=== PATIENT | male | born 1965 | race Caucasian/White ===

== ENCOUNTER 2023-10-28 15:29 | Emergency (ER) | payer OTHER, SELFPAY ==
[2023-10-28 15:42] VITALS: BP 149/85; PULSE 54; RESP 16; TEMP 36.2; O2SAT 96; BMI 35.2
--- OUTSIDE RECORDS SUMMARY | 2023-10-28 19:15 | XMS_ITS | Continuity of Care Document ---
Author Name Unknown Organization [facility] Address [address] [place] [address]- Care Team Providers Care Operational Risk Analyst Name Role Phone Opal NUNEZ, Emily Powell Primary Care Physician [place] [facility] [place] 09/06/20 [facility] [address] [place] [address]- [facility] Attending Physician: César Sylvester MD Referring Physician: Opal NUNEZ, Emily Powell Allergies, Adverse Reactions, Alerts Substance Reaction Severity Status Latex Active metFORMIN lightheadedness GI symptoms Active Immunizations Given and Recorded Vaccine Date Status Refusal Reason influenza virus vaccine, inactivated 1 08/09/18 Re corded influenza virus vaccine, inactivated 2 07/30/17 Gi rojelio influenza virus vaccine, inactivated 3 10/31/16 Gi rojelio influenza virus vaccine, inactivated 09/17/13 Give n influenza virus vaccine, inactivated 4 07/31/12 Gi rojelio pneumococcal 23-valent vaccine 5 06/05/12 Given tetanus/diphtheria/pertussis, acel(Tdap) 6 04/04/12 Given 1Location History: [facility] 2Admin Note: [facility] [id number] 3Admin Note: Administered at [facility] in [place] 4Admin Note: given at [facility] 5Admin Note: VIS 08/20 6Admin Note: VIS 11/23 Medications Allergy (Loratadine) 10 mg oral tablet 1 tablet = 10 mg, By Mouth, Daily, # 30 tablet, 2 Refills, Maintenance, 05/07/20 10:50:00 EDT, Tablet, [facility] #[id number], 162, cm, 05/07/20 8:55:00 EDT, Height Start Date: 05/07/20 Status: Ordered aspirin 81 mg oral delayed release tablet 81 mg, 1, tablet, By Mouth, Daily, # 90 tablet, Refills 5, Tot. Refills 5, Maintenance, 05/07/20 10:49:00 EDT, Route to Pharmacy Electronically, [facility] #[id number], 162, cm, 05/07/20 8:55:00EDT, Height Start Date: 05/07/20 Status: Ordered atorvastatin 40 mg oral tablet 1 tablet = 40 mg, By Mouth, Daily, # 90 tablet, 3 Refills, Maintenance, 07/26/20 17:31:00 EDT, Tablet, [facility] #[id number], 162, cm, 05/07/20 8:55:00 EDT, Height Start Date: 07/26/20 Status: Ordered bacitracin topical 500 u/gm ointment 1 application, Topically, 4 times a day, # 30 Gm, 0 Refills, Maintenance, 05/07/20 10:55:00 EDT, Ointment, [facility] #[id number], 1 application Topically 4 times a day,x7 days, 162, cm, 05/07/20 8:55:00 EDT, Height Start Date: 05/07/20 Stop Date: 05/14/20 Status: Ordered buPROPion 200 mg/12 hours (SR) oral tablet, extended release via psychiatry, 0 Refills, Maintenance, 08/11/20 13:38:00 EDT Start Date: 08/11/20 Status: Ordered diclofenac 1% topical gel 1 application, Topically, 4 times a day, # 100 Gm, 2 Refills, Maintenance, 08/24/20 13:23:00 EDT, Gel, [facility] #[id number], 162, cm, 08/24/20 12:57:00 EDT, Height, 101.4, kg, 08/07/20 16:24:00 EDT, Dry Weight Start Date: 08/24/20 Status: Ordered Flonase 50 mcg/inh nasal spray 1 sprays, Nares, Both, 2 times a day, PRN Congestion, # 16 Gm, 7 Refills, Maintenance, 05/07/20 10:48:00 EDT, [place], [facility] #[id number], 1 sprays Nares, Both 2 times a day,PRN:Congestion, 162, cm, 05/07/20 8:55:00 EDT, Height Start Date: 05/07/20 Status: Ordered FLUoxetine 20 mg oral capsule via psychiatry, Refills 0, Maintenance, 08/11/20 13:38:00 EDT Start Date: 08/11/20 Status: Ordered Freestyle Lite Lancets See Instructions, # 50 units, Refills 11, Tot. Refills 11, Maintenance, 1 x daily fasting sugar fortype 2 diabetes. e11.9, 12/19/18 17:14:12 EST, Compound Start Date: 12/19/18 Status: Ordered Freestyle Lite Test Strips See Instructions, # 100 each, Refills 11, Tot. Refills 11, Maintenance, Check daily fasting sugar for type 2 diabetes., 08/24/20 13:25:00 EDT, Compound, 162, cm, 08/24/20 12:57:00 EDT, Height, 101.4,kg, 08/07/20 16:24:00 EDT, Dry Weight Start Date: 08/24/20 Status: Ordered losartan 25 mg oral tablet 25 mg, 1, tablet, By Mouth, Daily, # 90 tablet, Refills 3, Tot. Refills 3, Maintenance, 02/02/20 16:29:00 EDT, Route to Pharmacy Electronically, [facility] #[id number], 162, cm, 12/22/19 14:37:00 EST, Height Start Date: 02/02/20 Stop Date: 01/27/21 Status: Ordered omeprazole 40 mg oral enteric coated capsule 1 capsule = 40 mg, By Mouth, Daily, before a meal, # 30 capsule, 0 Refills, Maintenance, 08/11/20 13:46:00 EDT, EC Capsule, [facility] #[id number], 162, cm, 05/07/20 8:55:00 EDT, Height, 101.4, kg, 08/07/20 16:24:00 EDT, Dry Weight Start Date: 08/11/20 Stop Date: 09/10/20 Status: Ordered Protonix 40 mg oral delayed release tablet 1 tablet = 40 mg, By Mouth, Daily, # 30 tablet, 0 Refills, Maintenance, 08/07/20 16:05:00 EDT, EC Tablet, 162, cm, 05/07/20 8:55:00 EDT, Height, 101.4, kg, 08/07/20 13:01:00 EDT, Dry Weight Start Date: 08/07/20 Status: Ordered traZODone 100 mg oral tablet via psychiatry, Refills 0, Maintenance, 08/11/20 13:38:00 EDT Start Date: 08/11/20 Status: Ordered zolpidem 10 mg oral tablet via psychiatry, 0 Refills, Maintenance, 08/11/20 13:38:00 EDT Start Date: 08/11/20 Status: Ordered Problem List Condition Effective Dates Status Health Status Inform ant Depression(Confirmed) 1 Active Diabetes Mellitus(Confirmed) 2009 Active Colon, diverticulosis(Confirmed) Active Sigmoid diverticulosis(Confirmed) Active Hemorrhoid(Confirmed) 2 Active 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 Dalton Box. and therapist. 2inertal and external on 2016 colonoscopy Social History Social History Type Response Smoking Status Former smoker; Other : quit per pt 03/08/18; entered on: 03/08/18 Sex Male
--- OUTSIDE RECORDS SUMMARY | 2023-10-28 19:15 | XMS_ITS | Continuity of Care Document ---
Author Name Unknown Organization [facility] Address [address] [place] [address]- Care Team Providers Care Informatica Mdm Architect Name Role Phone Rogelio NUNEZ, Arya Tompkins Primary Care Physician [phone] [place] [facility] [place]/23[place] - 12/23/[address] [address] Attending Physician: Collette Castillo Admitting Physician: AdmtrCollette Referring Physician: Admtr, Ar8 Allergies, Adverse Reactions, Alerts Substance Reaction Severity Status Latex Active metFORMIN lightheadedness GI symptoms Active Immunizations Given and Recorded Vaccine Date Status Refusal Reason tetanus/diphtheria/pertussis, acel(Tdap) 09/11/22 Given tetanus/diphtheria/pertussis, acel(Tdap) 1 04/04/12 Given [id number] 12y+ bivalent booster vax 08/24/22 Recorded influenza virus vaccine, inactivated 08/08/22 Randy rded influenza virus vaccine, inactivated 09/02/21 Randy rded influenza virus vaccine, inactivated 08/06/20 Randy rded influenza virus vaccine, inactivated 2 08/09/18 Re corded influenza virus vaccine, inactivated 3 07/30/17 Gi rojelio influenza virus vaccine, inactivated 4 10/31/16 Gi rojelio influenza virus vaccine, inactivated 08/31/15 Randy rded influenza virus vaccine, inactivated 09/02/14 Randy rded influenza virus vaccine, inactivated 09/17/13 Give n influenza virus vaccine, inactivated 5 07/31/12 Gi rojelio SARS-CoV-2 mRNA ([id number]) vax 03/08/22 Recorded zoster vaccine, inactivated 01/31/22 Recorded zoster vaccine, inactivated 08/02/21 Recorded SARS-CoV-2 (COVID-19) mRNA BNT-162b2 vac 10/29/21 Recorded SARS-CoV-2 (COVID-19) mRNA BNT-162b2 vac 02/17/21 Recorded SARS-CoV-2 (COVID-19) mRNA BNT-162b2 vac 01/27/21 Recorded pneumococcal 23-valent vaccine 6 06/05/12 Given 1Admin Note: VIS 11/23 2Location History: [facility] 3Admin Note: [facility] [id number] 4Admin Note: Administered at [facility] in [place] 5Admin Note: given at [facility] 6Admin Note: VIS 08/20 Medications 3 pair plastazote diabetic shoe inserts 3 pair plastazote diabetic shoe inserts, See Instructions, # 6 each, Refills 11, Tot. Refills 11, Maintenance, Diagnosis codes E11.9, L84, 08/25/22 17:10:00 EDT, Compound Start Date: 08/25/22 Status: Ordered acetaminophen 650 mg oral tablet, extended release 1 tablet = 650 mg, By Mouth, Every 8 hours, PRN Pain , Moderate, # 100 tablet, 3 Refills, Maintenance, 11/03/22 16:19:00 EST, [facility] #[id number], Partial fill upon patient request if the prescription is for a schedule II opioid drug., 160, cm... Start Date: 11/03/22 Status: Ordered Allergy (Loratadine) 10 mg oral tablet 1 tablet = 10 mg, By Mouth, Daily, # 30 tablet, 2 Refills, Maintenance, 05/07/20 10:50:00 EDT, Tablet, [facility] #[id number], 162, cm, 05/07/20 8:55:00 EDT, Height Start Date: 05/07/20 Status: Ordered aspirin 81 mg oral delayed release tablet 81 mg, 1, tablet, By Mouth, Daily, # 90 tablet, Refills 7, Tot. Refills 7, Maintenance, 10/21/20 15:17:00 EST, Route to Pharmacy Electronically, [facility] #[id number], 162, cm, 08/24/20 12:57:00 EDT, Height, 101.4, kg, 08/07/20 16:24:00 EDT, Dry... Start Date: 10/21/20 Status: Ordered atorvastatin 40 mg oral tablet 1 tablet = 40 mg, By Mouth, Daily, # 90 tablet, 1 Refills, Maintenance, 07/20/22 14:56:00 EDT, Tablet, [facility] #[id number], 160, cm, 08/02/21 9:33:00 EDT, Height, 101.4, kg, 08/07/20 16:24:00EDT, Dry Weight Start Date: 07/20/22 Status: Ordered bacitracin topical 500 u/gm ointment 1 application, Topically, 4 times a day, # 30 Gm, 0 Refills, Maintenance, 05/07/20 10:55:00 EDT, Ointment, [facility] #[id number], 1 application Topically 4 times a day,x7 days, 162, cm, 05/07/20 8:55:00 EDT, Height Start Date: 05/07/20 Stop Date: 05/14/20 Status: Ordered buPROPion 200 mg/12 hours (SR) oral tablet, extended release via psychiatry, 0 Refills, Maintenance, 08/11/20 13:38:00 EDT Start Date: 08/11/20 Status: Ordered celecoxib 100 mg oral capsule 1 capsule = 100 mg, By Mouth, 2 times a day, PRN for pain, # 14 capsule, 0 Refills, Maintenance, 11/03/22 14:34:00 EST, [facility] #[id number], Partial fill upon patient request if the prescription is for a schedule II opioid drug., 160,... Start Date: 11/03/22 Stop Date: 11/10/22 Status: Ordered diclofenac 1% topical gel 1 application, Topically, 4 times a day, # 100 Gm, 4 Refills, Maintenance, 11/03/22 14:30:00 EST, [facility] #[id number], 160, cm, 11/03/22 13:45:00 EST, Height Start Date: 11/03/22 Status: Ordered Flonase 50 mcg/inh nasal spray 1 sprays, Nares, Both, 2 times a day, PRN Congestion, # 16 Gm, 7 Refills, Maintenance, 05/07/20 10:48:00 EDT, [facility] #[id number], 1 sprays Nares, Both 2 times a [...] Start Date: 12/19/18 Status: Ordered Freestyle Lite Monitor See Instructions, # 1 each, Refills 0, Tot. Refills 0, Maintenance, use to test bg as directed for Type 2 Diabetes Mellitus, 11/08/22 16:38:00 EST, Supply, 160, cm, 11/03/22 13:45:00 EST, Height Start Date: 11/08/22 Stop Date: 12/08/22 Status: Ordered Freestyle Lite Test Strips See Instructions, # 100 each, Refills 11, Tot. Refills 11, Maintenance, Check daily fasting sugar for type 2 diabetes., 08/24/20 13:25:00 EDT, Compound, 162, cm, 08/24/20 12:57:00 EDT, Height, 101.4,kg, 08/07/20 16:24:00 EDT, Dry Weight Start Date: 08/24/20 Status: Ordered lidocaine 5% topical film 1 patch, Topically, Daily, PRN Pain , Mild, remove after 12 hours, # 13 each, 5 Refills, Maintenance, 01/24/21 11:13:00 EDT, Film, [facility] #[id number], Partial fill upon patient request if the prescription is for a schedule II opioid drug., 1... Start Date: 01/24/21 Status: Ordered losartan 25 mg oral tablet 25 mg, 1, tablet, By Mouth, Daily, # 90 tablet, Refills 1, Tot. Refills 1, Maintenance, 10/23/22 11:41:00 EST, Route to Pharmacy Electronically, [facility] #[id number], 160, cm, 08/24/22 16:58:00 EDT, Height Start Date: 10/23/22 Stop Date: 04/21/23 Status: Ordered omeprazole 20 mg oral enteric coated capsule 1 capsule, By Mouth, Daily, for 90 days, # 90 capsule, 0 Refills, Physician Stop 01/17/23 13:09:00 EST, 10/19/22 13:09:00 EST, [facility] #[id number], 160, cm, 08/24/22 16:58:00 EDT, Height Start Date: 10/19/22 Stop Date: 01/17/23 Status: Ordered pair of atrex diabetic shoes pair of atrex diabetic shoes, See Instructions, # 2 each, Refills 0, Tot. Refills 0, Maintenance, Diagnosis codes: E11.9 and L84, 08/25/22 17:10:00 EDT, Compound Start Date: 08/25/22 Status: Ordered traZODone 100 mg oral tablet via psychiatry, Refills 0, Maintenance, 08/11/20 13:38:00 EDT Start Date: 08/11/20 Status: Ordered zolpidem 10 mg oral tablet via psychiatry, 0 Refills, Maintenance, 08/11/20 13:38:00 EDT Start Date: 08/11/20 Status: Ordered Problem List Condition Confirmation Course Effective Dates Status H ealth Status Informant Depression 1 Confirmed Active Diabetes Mellitus Confirmed 2009 Active Colon, diverticulosis Confirmed Active Sigmoid diverticulosis Confirmed Active Hemorrhoid 2 Confirmed Active Hyperlipidemia due to type 2 diabetes mellitus Confirmed Active Hypertension Confirmed Active Obesity Confirmed Active BHN/CCA/CLARA-Janelle Antoine [phone]/Health skilled nursing active care coordination Confirmed Active Severe obesity (BMI 35.0-39.9) with comorbidity Confirmed Active 1followed by Dr. Dalton Box. and therapist. 2inertal and external on 2017 colonoscopy Social History Social History Type Response Smoking Status Former smoker; Other : quit per pt 03/08/18; entered on: 03/08/18 Sex Male Patient Care team information Care Team Personnel Name: Arya Mercado MD Position: [facility] Resident Member Role: PCP Address: Address: [address] [place] [address] Care Team Related Persons Name: SAMANTHA DAILY Name: EDUARDO DUNBAR Address: [address] [address]
--- OUTSIDE RECORDS SUMMARY | 2023-10-28 19:15 | XMS_ITS | Continuity of Care Document ---
Author Name Unknown Organization [facility] Address [address] [place] [address]- Care Team Providers Care Veterans' Coordinator Name Role Phone Opal NUNEZ, Emily Powell Primary Care Physician Encounter [facility] Date(s): 08/12/20 - 09/11/20 [facility] [address] [place] [address] [facility] Attending Physician: AdmCollette villalba Admitting Physician: AdmCollette villalba Referring Physician: AdmtrCollette Allergies, Adverse Reactions, Alerts Substance Reaction Severity [...] tetanus/diphtheria/pertussis, acel(Tdap) 6 04/04/12 Given 1Location History: [facility] 2Admin Note: [facility] [id number] 3Admin Note: Administered at [facility] in [place] 4Admin Note: given at [facility] 5Admin Note: VIS 08/20 6Admin Note: VIS 11/23 Medications Allergy (Loratadine) 10 mg oral tablet 1 tablet = 10 mg, By Mouth, Daily, # 30 tablet, 2 Refills, Maintenance, 05/07/20 10:50:00 EDT, Tablet, [facility] #[id number], 162, cm, 05/07/20 8:55:00 EDT, Height Start Date: 05/07/20 Status: Ordered aspirin 81 mg oral delayed release tablet 81 mg, 1, tablet, By Mouth, Daily, # 90 tablet, Refills 5, Tot. Refills 5, Maintenance, 05/07/20 10:49:00 EDT, Route to Pharmacy Electronically, [facility] #[id number], 162, cm, 05/07/20 8:55:00EDT, Height Start Date: 05/07/20 Status: Ordered atorvastatin 40 mg oral tablet 1 tablet = 40 mg, By Mouth, Daily, # 90 tablet, 3 Refills, Maintenance, 07/26/20 17:31:00 EDT, Tablet, [facility] #[id number], 162, cm, 05/07/20 8:55:00 EDT, Height Start Date: 07/26/20 Status: Ordered bacitracin topical 500 u/gm ointment 1 application, Topically, 4 times a day, # 30 Gm, 0 Refills, Maintenance, 05/07/20 10:55:00 EDT, Ointment, [facility] #[id number], 1 application Topically 4 times a day,x7 [...] 2 Refills, Maintenance, 08/24/20 13:23:00 EDT, Gel, [facility] #[id number], 162, cm, 08/24/20 12:57:00 EDT, Height, 101.4, kg, 08/07/20 16:24:00 EDT, Dry Weight Start Date: 08/24/20 Status: Ordered Flonase 50 mcg/inh nasal spray 1 sprays, Nares, Both, 2 times a day, PRN Congestion, # 16 Gm, 7 Refills, Maintenance, 05/07/20 10:48:00 EDT, [place], [facility] #[id number], 1 sprays Nares, Both 2 times a [...] 02/02/20 16:29:00 EDT, Route to Pharmacy Electronically, [facility] #[id number], 162, cm, 12/22/19 14:37:00 EST, Height Start Date: 02/02/20 Stop Date: 01/27/21 Status: Ordered omeprazole 40 mg oral enteric coated capsule 1 capsule = 40 mg, By Mouth, Daily, before a meal, # 30 capsule, 0 Refills, Maintenance, 08/11/20 13:46:00 EDT, EC Capsule, [facility] #[id number], 162, cm, 05/07/20 8:55:00 EDT, Height, 101.4, [...]
--- OUTSIDE RECORDS SUMMARY | 2023-10-28 19:15 | XMS_ITS | Continuity of Care Document ---
Author Name Unknown Organization [facility] Address [address] [place] [address]- Care Team Providers Care Paint Technician Name Role Phone Opal NUNEZ, Emily Powell Primary Care Physician [place] [facility] [place] - 03/18/[address] [email or web address] Attending Physician: Not on Staff, Attending MD Referring Physician: Tyree NUNEZ (Internal Medicine) , Ya Allergies, Adverse Reactions, Alerts Substance Reaction Severity [...] tetanus/diphtheria/pertussis, acel(Tdap) 6 04/04/12 Given 1Location History: [facility] 2Admin Note: [facility] [id number] 3Admin Note: Administered at [facility] in [place] 4Admin Note: given at [facility] 5Admin Note: VIS 08/20 6Admin Note: VIS 11/23 Medications 3 pair plastazote diabetic shoe inserts 3 pair plastazote diabetic shoe inserts, See Instructions, # 6 each, Refills 11, Tot. Refills 11, Maintenance, Diagnosis codes E11.9, L84, 09/17/20 11:02:00 EST, Compound Start Date: 09/17/20 Status: Ordered Allergy (Loratadine) 10 mg oral tablet 1 tablet = 10 mg, By Mouth, Daily, # 30 tablet, 2 Refills, Maintenance, 05/07/20 10:50:00 EDT, Tablet, [facility] #[id number], 162, cm, 05/07/20 8:55:00 EDT, Height Start Date: 05/07/20 Status: Ordered aspirin 81 mg oral delayed release tablet 81 mg, 1, tablet, By Mouth, Daily, # 90 tablet, Refills 7, Tot. Refills 7, Maintenance, 10/21/20 15:17:00 EST, Route to Pharmacy Electronically, [facility] #[id number], 162, cm, 08/24/20 12:57:00 EDT, Height, 101.4, kg, 08/07/20 16:24:00 EDT, Dry... Start Date: 10/21/20 Status: Ordered atorvastatin 40 mg oral tablet 1 tablet = 40 mg, By Mouth, Daily, # 90 tablet, 1 Refills, Maintenance, 03/09/21 14:32:00 EDT, Tablet, [facility] #[id number], 160, cm, 01/10/21 14:43:00 EST, Height, 101.4, kg, 08/07/20 16:24:00 EDT, Dry Weight Start Date: 03/09/21 Status: Ordered bacitracin topical 500 u/gm ointment 1 application, Topically, 4 times a day, # 30 Gm, 0 Refills, Maintenance, 05/07/20 10:55:00 EDT, Ointment, [facility] #[id number], 1 application Topically 4 times a day,x7 days, 162, cm, 05/07/20 8:55:00 EDT, Height Start Date: 05/07/20 Stop Date: 05/14/20 Status: Ordered buPROPion 200 mg/12 hours (SR) oral tablet, extended release via psychiatry, 0 Refills, Maintenance, 08/11/20 13:38:00 EDT Start Date: 08/11/20 Status: Ordered diclofenac 1% topical gel 1 application, Topically, 4 times a day, # 100 Gm, 1 Refills, Maintenance, 03/09/21 14:32:00 EDT, Gel, [facility] #[id number], 160, cm, 01/10/21 14:43:00 EST, Height, 101.4, kg, 08/07/20 16:24:00 EDT, Dry Weight Start Date: 03/09/21 Status: Ordered Flonase 50 mcg/inh nasal spray 1 sprays, Nares, Both, 2 times a day, PRN Congestion, # 16 Gm, 7 Refills, Maintenance, 05/07/20 10:48:00 EDT, [place], [facility] #[id number], 1 sprays Nares, Both 2 times a [...] 5 Refills, Maintenance, 01/24/21 11:13:00 EDT, Film, [facility] #[id number], Partial fill upon patient request if the prescription is for a schedule II opioid drug., 1... Start Date: 01/24/21 Status: Ordered losartan 25 mg oral tablet 25 mg, 1, tablet, By Mouth, Daily, # 90 tablet, Refills 7, Tot. Refills 7, Maintenance, 10/21/20 15:16:00 EST, Route to Pharmacy Electronically, [facility] #[id number], 162, cm, 08/24/20 12:57:00 EDT, Height, 101.4, kg, 08/07/20 16:24:00 EDT, Dry... Start Date: 10/21/20 Stop Date: 10/11/22 Status: Ordered omeprazole 20 mg oral enteric coated capsule 1 capsule = 20 mg, By Mouth, Daily, # 30 capsule, 2 Refills, Maintenance, 02/22/21 11:07:00 EDT, ECCapsule, [facility] #[id number], Partial fill upon patient request if the prescription is for a schedule II opioid drug., 160, cm, 01/10/21 14:43:... Start Date: 02/22/21 Status: Ordered pair of atrex diabetic shoes pair of atrex diabetic shoes, See Instructions, # 2 each, Refills 0, Tot. Refills 0, Maintenance, Diagnosis codes: E11.9 and L84, 09/17/20 11:02:00 EST, Compound Start Date: 09/17/20 Status: Ordered traZODone 100 mg oral tablet via psychiatry, Refills 0, Maintenance, 08/11/20 13:38:00 EDT Start Date: 08/11/20 Status: Ordered Tylenol 8 Hour 650 mg oral tablet, extended release 1 tablet = 650 mg, By Mouth, Every 8 hours, PRN Pain , Moderate, for 30 days, # 90 tablet, 3 Refills, Acute 05/20/21 7:44:00 EDT, 01/20/21 7:44:00 EST, ER Tablet, [facility] #[id number], Partialfill upon patient request if the prescription is fo... 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 Dalton Box. and therapist. 2inertal and external on 2017 colonoscopy Social History Social History Type Response Smoking Status Former smoker; Other : quit per pt 03/08/18; entered on: 03/08/18 Sex Male
--- OUTSIDE RECORDS SUMMARY | 2023-10-28 19:15 | XMS_ITS | Continuity of Care Document ---
Author Name Unknown Organization [facility] Address [address] [place] [address]- Care Team Providers Care Emt Paramedic Name Role Phone Opal NUNEZ, Emily Powell Primary Care Physician [facility]20 - 09/08/20 [facility] [address] [place] [id number] Allergies, Adverse Reactions, Alerts Substance Reaction Severity [...] tetanus/diphtheria/pertussis, acel(Tdap) 6 04/04/12 Given 1Location History: [facility] [place] 2Admin Note: [facility] [id number] 3Admin Note: Administered at [facility] in [place] 4Admin Note: given at [facility] 5Admin Note: VIS 08/20 6Admin Note: VIS 11/23 Medications Allergy (Loratadine) 10 mg oral tablet 1 tablet = 10 mg, By Mouth, Daily, # 30 tablet, 2 Refills, Maintenance, 05/07/20 10:50:00 EDT, Tablet, [facility] #[id number], 162, cm, 05/07/20 8:55:00 EDT, Height Start Date: 05/07/20 Status: Ordered aspirin 81 mg oral delayed release tablet 81 mg, 1, tablet, By Mouth, Daily, # 90 tablet, Refills 5, Tot. Refills 5, Maintenance, 05/07/20 10:49:00 EDT, Route to Pharmacy Electronically, [facility] #[id number], 162, cm, 05/07/20 8:55:00EDT, Height Start Date: 05/07/20 Status: Ordered atorvastatin 40 mg oral tablet 1 tablet = 40 mg, By Mouth, Daily, # 90 tablet, 3 Refills, Maintenance, 07/26/20 17:31:00 EDT, Tablet, [facility] #[id number], 162, cm, 05/07/20 8:55:00 EDT, Height Start Date: 07/26/20 Status: Ordered bacitracin topical 500 u/gm ointment 1 application, Topically, 4 times a day, # 30 Gm, 0 Refills, Maintenance, 05/07/20 10:55:00 EDT, Ointment, [facility] #[id number], 1 application Topically 4 times a day,x7 [...] 2 Refills, Maintenance, 08/24/20 13:23:00 EDT, Gel, [facility] #52852, 162, cm, 08/24/20 12:57:00 EDT, Height, 101.4, kg, 08/07/20 16:24:00 EDT, Dry Weight Start Date: 08/24/20 Status: Ordered Flonase 50 mcg/inh nasal spray 1 sprays, Nares, Both, 2 times a day, PRN Congestion, # 16 Gm, 7 Refills, Maintenance, 05/07/20 10:48:00 EDT, [place] #[id number], 1 sprays Nares, Both 2 times a [...] 02/02/20 16:29:00 EDT, Route to Pharmacy Electronically, [facility] #[id number], 162, cm, 12/22/19 14:37:00 EST, Height Start Date: 02/02/20 Stop Date: 01/27/21 Status: Ordered omeprazole 40 mg oral enteric coated capsule 1 capsule = 40 mg, By Mouth, Daily, before a meal, # 30 capsule, 0 Refills, Maintenance, 08/11/20 13:46:00 EDT, EC Capsule, [facility] #24931, 162, cm, 05/07/20 8:55:00 EDT, Height, 101.4, [...]
--- OUTSIDE RECORDS SUMMARY | 2023-10-28 19:15 | XMS_ITS | Continuity of Care Document ---
Author Name Unknown Organization [facility] Address [address] [place] [address]- Care Team Providers Care Java Analyst Name Role Phone Arya Mercado MD Primary Care Physician [facility]s): 12[facility]22 - 12/31/22 [facility] [address], [place] [address] Attending Physician: Collette Castillo Admitting Physician: AdmCollette villalba Referring Physician: AdmtrCollette Allergies, Adverse Reactions, Alerts Substance Reaction Severity Status Latex Active metFORMIN lightheadedness GI symptoms Active Immunizations Given and Recorded Vaccine Date Status Refusal Reason tetanus/diphtheria/pertussis, acel(Tdap) 09/11/22 Given tetanus/diphtheria/pertussis, acel(Tdap) 1 04/04/12 Given [id number] 12y+ bivalent booster vax 08/24/22 Recorded influenza [...] inactivated 5 07/31/12 Gi rojelio SARS-CoV-2 mRNA ([id number]-[id number]-[id number]) vax 03/08/22 Recorded zoster vaccine, inactivated 01/31/22 Recorded zoster vaccine, inactivated 08/02/21 Recorded SARS-CoV-2 (COVID-19) mRNA BNT-162b2 vac 10/29/21 Recorded SARS-CoV-2 (COVID-19) mRNA BNT-162b2 vac 02/17/21 Recorded SARS-CoV-2 (COVID-19) mRNA BNT-162b2 vac 01/27/21 Recorded pneumococcal 23-valent vaccine 6 06/05/12 Given 1Admin Note: VIS 11/23 2Location History: [facility] 3Admin Note: [facility] [place]NOTE 2] [id number] 4Admin Note: Administered at [facility] in [place] 5Admin Note: given at [facility] 6Admin Note: VIS 08/20 Medications 3 [...] tablet, 3 Refills, Maintenance, 11/03/22 16:19:00 EST, [facility] #[id number], Partial fill upon patient request if the prescription is for a schedule II opioid drug., 160, cm... Start Date: 11/03/22 Status: Ordered Allergy (Loratadine) 10 mg oral tablet 1 tablet = 10 mg, By Mouth, Daily, # 30 tablet, 2 Refills, Maintenance, 05/07/20 10:50:00 EDT, Tablet, [facility] #[id number], 162, cm, 05/07/20 8:55:00 EDT, Height Start Date: 05/07/20 Status: Ordered aspirin 81 mg oral delayed release tablet 81 mg, 1, tablet, By Mouth, Daily, # 90 tablet, Refills 7, Tot. Refills 7, Maintenance, 10/21/20 15:17:00 EST, Route to Pharmacy Electronically, [facility] #[id number], 162, cm, 08/24/20 12:57:00 EDT, Height, 101.4, kg, 08/07/20 16:24:00 EDT, Dry... Start Date: 10/21/20 Status: Ordered atorvastatin 40 mg oral tablet 1 tablet = 40 mg, By Mouth, Daily, # 90 tablet, 1 Refills, Maintenance, 07/20/22 14:56:00 EDT, Tablet, [facility] #05306, 160, cm, 08/02/21 9:33:00 EDT, Height, 101.4, kg, 08/07/20 16:24:00EDT, Dry Weight Start Date: 07/20/22 Status: Ordered bacitracin topical 500 u/gm ointment 1 application, Topically, 4 times a day, # 30 Gm, 0 Refills, Maintenance, 05/07/20 10:55:00 EDT, Ointment, [facility] #98674, 1 application Topically 4 times a day,x7 [...] capsule, 0 Refills, Maintenance, 11/03/22 14:34:00 EST, [facility] #85994, Partial fill upon patient request if the prescription is for a schedule II opioid drug., 160,... Start Date: 11/03/22 Stop Date: 11/10/22 Status: Ordered diclofenac 1% topical gel 1 application, Topically, 4 times a day, # 100 Gm, 4 Refills, Maintenance, 11/03/22 14:30:00 EST, Gel, [facility] #99329, 160, cm, 11/03/22 13:45:00 EST, Height Start Date: 11/03/22 Status: Ordered Flonase 50 mcg/inh nasal spray 1 sprays, Nares, Both, 2 times a day, PRN Congestion, # 16 Gm, 7 Refills, Maintenance, 05/07/20 10:48:00 EDT, [place], [facility] #50710, 1 sprays Nares, Both 2 times a [...] 5 Refills, Maintenance, 01/24/21 11:13:00 EDT, [place], [facility] #69794, Partial fill upon patient request if the prescription is for a schedule II opioid drug., 1... Start Date: 01/24/21 Status: Ordered losartan 25 mg oral tablet 25 mg, 1, tablet, By Mouth, Daily, # 90 tablet, Refills 1, Tot. Refills 1, Maintenance, 10/23/22 11:41:00 EST, Route to Pharmacy Electronically, [facility] #61969, 160, cm, 08/24/22 16:58:00 EDT, Height Start Date: 10/23/22 Stop Date: 04/21/23 Status: Ordered omeprazole 20 mg oral enteric coated capsule 1 capsule, By Mouth, Daily, for 90 days, # 90 capsule, 0 Refills, Physician Stop 01/17/23 13:09:00 EST, 10/19/22 13:09:00 EST, [facility] #[id number], 160, cm, 08/24/22 16:58:00 EDT, Height Start [...] Confirmed Active Obesity Confirmed Active BHN/CCA/CLARA-Janelle Antoine [phone]/Health [facility] active care coordination Confirmed Active Severe obesity (BMI 35.0-39.9) with comorbidity Confirmed Active 1followed by Dr. Dalton Box. and therapist. 2inertal and external on 2016 colonoscopy Vital Signs Most recent to oldest [Reference Range]: 1 Height 162 cm (05/29/18 3:03 PM) Weight 98.0 kg (05/29/18 3:03 PM) Pulse Rate [55-90 bpm] 97 bpm *H* (05/29/18 3:03 PM) Body Mass Index [18.5-24.99] 37.34 *>HHI* (05/29/18 3:03 PM) Blood Pressure [90-138/55-84 mm Hg] 138/ 88mm Hg (05/29/18 3:03 PM) Blood pressure sites Arm, left (05/29/18 3:03 PM) Weight Obtained Via Standing scale (05/29/18 3:03 PM) Social History Social History Type Response Smoking Status Former smoker; Other : quit per pt 03/08/18; entered on: 03/08/18 Sex Male Patient Care team information Care Team Personnel Name: Rogelio NUNEZ, Arya Tompkins Position: [facility] Resident Member Role: PCP Address: Address: [address] [place] [address] [place] [address]- Care Team Related Persons Name: SAMANTHA DAILY Name: EDUARDO DUNBAR Address: home [address] [place] [address]
--- OUTSIDE RECORDS SUMMARY | 2023-10-28 19:15 | XMS_ITS | Continuity of Care Document ---
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 Name Role Phone Arya Mercado MDradha Primary Care Physician Encounter [facility] Date(s): 11/01/22 - 12/01/[address] [address]- Allergies, Adverse Reactions, Alerts Substance Reaction Severity Status Latex Active metFORMIN lightheadedness GI symptoms Active Immunizations Given and Recorded Vaccine Date Status Refusal Reason tetanus/diphtheria/pertussis, acel(Tdap) 09/11/22 Given tetanus/diphtheria/pertussis, acel(Tdap) 1 04/04/12 Given [id number] 12y+ bivalent booster vax 08/24/22 Recorded influenza [...] inactivated 5 07/31/12 Gi rojelio SARS-CoV-2 mRNA (fccfdby-gduq-nrluk) vax 03/08/22 Recorded zoster vaccine, inactivated 01/31/22 Recorded zoster vaccine, inactivated 08/02/21 Recorded SARS-CoV-2 (COVID-19) mRNA BNT-162b2 vac 10/29/21 Recorded SARS-CoV-2 (COVID-19) mRNA BNT-162b2 vac 02/17/21 Recorded SARS-CoV-2 (COVID-19) mRNA BNT-162b2 vac 01/27/21 Recorded pneumococcal 23-valent vaccine 6 06/05/12 Given 1Admin Note: VIS 11/23 2Location History: [facility] 3Admin Note: [facility] [id number] 4Admin Note: Administered at [facility] in [place] 5Admin Note: given at [facility] 6Admin Note: VIS 08/20 Medications 3 [...] tablet, 3 Refills, Maintenance, 11/03/22 16:19:00 EST, [facility] #[id number], Partial fill upon patient request if the prescription is for a schedule II opioid drug., 160, cm... Start Date: 11/03/22 Status: Ordered Allergy (Loratadine) 10 mg oral tablet 1 tablet = 10 mg, By Mouth, Daily, # 30 tablet, 2 Refills, Maintenance, 05/07/20 10:50:00 EDT, Tablet, [facility] #08022, 162, cm, 05/07/20 8:55:00 EDT, Height Start Date: 05/07/20 Status: Ordered aspirin 81 mg oral delayed release tablet 81 mg, 1, tablet, By Mouth, Daily, # 90 tablet, Refills 7, Tot. Refills 7, Maintenance, 10/21/20 15:17:00 EST, Route to Pharmacy Electronically, [facility] #[id number], 162, cm, 08/24/20 12:57:00 EDT, Height, 101.4, kg, 08/07/20 16:24:00 EDT, Dry... Start Date: 10/21/20 Status: Ordered atorvastatin 40 mg oral tablet 1 tablet = 40 mg, By Mouth, Daily, # 90 tablet, 1 Refills, Maintenance, 07/20/22 14:56:00 EDT, Tablet, [facility] #49637, 160, cm, 08/02/21 9:33:00 EDT, Height, 101.4, kg, 08/07/20 16:24:00EDT, Dry Weight Start Date: 07/20/22 Status: Ordered bacitracin topical 500 u/gm ointment 1 application, Topically, 4 times a day, # 30 Gm, 0 Refills, Maintenance, 05/07/20 10:55:00 EDT, Ointment, [facility] #[id number], 1 application Topically 4 times a day,x7 [...] capsule, 0 Refills, Maintenance, 11/03/22 14:34:00 EST, Capsule, [facility] #03913, Partial fill upon patient request if the prescription is for a schedule II opioid drug., 160,... Start Date: 11/03/22 Stop Date: 11/10/22 Status: Ordered diclofenac 1% topical gel 1 application, Topically, 4 times a day, # 100 Gm, 4 Refills, Maintenance, 11/03/22 14:30:00 EST, Gel, [facility] #04891, 160, cm, 11/03/22 13:45:00 EST, Height Start Date: 11/03/22 Status: Ordered Flonase 50 mcg/inh nasal spray 1 sprays, Nares, Both, 2 times a day, PRN Congestion, # 16 Gm, 7 Refills, Maintenance, 05/07/20 10:48:00 EDT, [place], [facility] #[id number], 1 sprays Nares, Both 2 times a [...] 5 Refills, Maintenance, 01/24/21 11:13:00 EDT, [place], [email or web address] #[id number], Partial fill upon patient request if the prescription is for a schedule II opioid drug., 1... Start Date: 01/24/21 Status: Ordered losartan 25 mg oral tablet 25 mg, 1, tablet, By Mouth, Daily, # 90 tablet, Refills 1, Tot. Refills 1, Maintenance, 10/23/22 11:41:00 EST, Route to Pharmacy Electronically, [facility] #[id number], 160, cm, 08/24/22 16:58:00 EDT, Height Start Date: 10/23/22 Stop Date: 04/21/23 Status: Ordered omeprazole 20 mg oral enteric coated capsule 1 capsule, By Mouth, Daily, for 90 days, # 90 capsule, 0 Refills, Physician Stop 01/17/23 13:09:00 EST, 10/19/22 13:09:00 EST, [email or web address] #[id number], 160, cm, 08/24/22 16:58:00 EDT, Height Start [...] Confirmed Active Obesity Confirmed Active BHN/CCA/CLARA-Janelle Antoine [phone]/Health long-term active care coordination Confirmed Active Severe obesity (BMI 35.0-39.9) with comorbidity Confirmed Active 1followed by Dr. Dalton Box. and therapist. 2inertal and external on 2017 colonoscopy Social History Social History Type Response Smoking Status Former smoker; Other : quit per pt 03/08/18; entered on: 03/08/18 Sex Male Patient Care team information Care Team Personnel Name: Arya Mercado MD Position: [facility] Resident Member Role: PCP Address: Address: [address] [place] [address] [place] [address]- Care Team Related Persons Name: SAMANTHA DAILY Name: EDUARDO DUNBAR Address: home [address] [place] [address]
--- OUTSIDE RECORDS SUMMARY | 2023-10-28 19:15 | XMS_ITS | Continuity of Care Document ---
Author Name Unknown Organization [facility] Address [address] [place] [address]- Care Team Providers Care Teacher Aide Clerical Name Role Phone Opal NUNEZ, Emily Powell Primary Care Physician [facility]s): 03[facility]23[facility]21 - 04/22/21 [facility] [address] [place] [id number]- Attending Physician: Collette Castillo Admitting Physician: AdmCollette [...] tetanus/diphtheria/pertussis, acel(Tdap) 6 04/04/12 Given 1Location History: [facility] 2Admin Note: [facility] [id number] 3Admin Note: Administered at [facility] [address] [facility] [place] 4Admin Note: given at [facility] 5Admin Note: VIS 08/20 6Admin Note: VIS [...] 2 Refills, Maintenance, 05/07/20 10:50:00 EDT, Tablet, [facility] #[id number], 162, cm, 05/07/20 8:55:00 EDT, Height Start Date: 05/07/20 Status: Ordered aspirin 81 mg oral delayed release tablet 81 mg, 1, tablet, By Mouth, Daily, # 90 tablet, Refills 7, Tot. Refills 7, Maintenance, 10/21/20 15:17:00 EST, Route to Pharmacy Electronically, [facility] #[id number], 162, cm, 08/24/20 12:57:00 EDT, Height, 101.4, kg, 08/07/20 16:24:00 EDT, Dry... Start Date: 10/21/20 Status: Ordered atorvastatin 40 mg oral tablet 1 tablet = 40 mg, By Mouth, Daily, # 90 tablet, 1 Refills, Maintenance, 03/09/21 14:32:00 EDT, Tablet, [facility] #11362, 160, cm, 01/10/21 14:43:00 EST, Height, 101.4, kg, 08/07/20 16:24:00 EDT, Dry Weight Start Date: 03/09/21 Status: Ordered bacitracin topical 500 u/gm ointment 1 application, Topically, 4 times a day, # 30 Gm, 0 Refills, Maintenance, 05/07/20 10:55:00 EDT, Ointment, [facility] #52811, 1 application Topically 4 times a day,x7 [...] 1 Refills, Maintenance, 03/09/21 14:32:00 EDT, Gel, [facility] #07128, 160, cm, 01/10/21 14:43:00 EST, Height, 101.4, kg, 08/07/20 16:24:00 EDT, Dry Weight Start Date: 03/09/21 Status: Ordered Flonase 50 mcg/inh nasal spray 1 sprays, Nares, Both, 2 times a day, PRN Congestion, # 16 Gm, 7 Refills, Maintenance, 05/07/20 10:48:00 EDT, [facility] #[id number], 1 sprays Nares, Both 2 times a [...] 5 Refills, Maintenance, 01/24/21 11:13:00 EDT, [place], [facility] #[id number], Partial fill upon patient request if the prescription is for a schedule II opioid drug., 1... Start Date: 01/24/21 Status: Ordered losartan 25 mg oral tablet 25 mg, 1, tablet, By Mouth, Daily, # 90 tablet, Refills 7, Tot. Refills 7, Maintenance, 10/21/20 15:16:00 EST, Route to Pharmacy Electronically, [facility] #[id number], 162, cm, 08/24/20 12:57:00 EDT, Height, 101.4, kg, 08/07/20 16:24:00 EDT, Dry... Start Date: 10/21/20 Stop Date: 10/11/22 Status: Ordered meloxicam 15 mg oral tablet 1 tablet = 15 mg, By Mouth, Daily, # 14 tablet, 0 Refills, Maintenance, 03/23/21 10:46:00 EDT, Tablet, [facility] #[id number], Partial fill upon patient request if the prescription is for a schedule II opioid drug., 160, cm, 03/23/21 10:12:00 EDT... Start Date: 03/23/21 Stop Date: 04/06/21 Status: Ordered omeprazole 20 mg oral enteric coated capsule 1 capsule = 20 mg, By Mouth, Daily, # 30 capsule, 2 Refills, Maintenance, 02/22/21 11:07:00 EDT, ECCapsule, [facility] #[id number], Partial fill upon patient request if the [...] 7:44:00 EDT, 01/20/21 7:44:00 EST, ER Tablet, [facility] #[id number], Partialfill upon patient request if the prescription is fo... Start Date: 01/20/21 Stop Date: 05/20/21 Status: Ordered Voltaren 1% topical gel 1 application, Topically, 4 times a day, # 100 Gm, 4 Refills, Maintenance, 03/23/21 10:48:00 EDT, Gel, [facility] #[id number], Partial fill upon patient request if the prescription is for a schedule II opioid drug., 1 application Topically 4 time... 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 [...]
--- OUTSIDE RECORDS SUMMARY | 2023-10-28 19:15 | XMS_ITS | Continuity of Care Document ---
Author Name Unknown Organization [facility] Address [address] [place] [address]- Care Team Providers Care Cement Breaker Name Role Phone Opal NUNEZ, Emily Powell Primary Care Physician [facility] Date[facility]s): 05/07/20 - 06/06/20 [facility] [address] [place] [address]- [facility] Attending Physician: Collette Castillo Admitting Physician: AdmtrCollette Referring Physician: Admtr, ArStephany Allergies, Adverse Reactions, Alerts Substance Reaction Severity [...] tetanus/diphtheria/pertussis, acel(Tdap) 6 04/04/12 Given 1Location History: [facility] 2Admin Note: [facility] [id number] 3Admin Note: Administered at [facility] in [place] 4Admin Note: given at [facility] 5Admin Note: VIS 08/20 6Admin Note: VIS 11/23 Medications Alcohol Wipes See Instructions, # 30 application, Refills 5, Tot. Refills 5, Maintenance, ., 04/12/12 11:43:06 Start Date: 04/12/12 Status: Ordered Allergy (Loratadine) 10 mg oral tablet 1 tablet = 10 mg, By Mouth, Daily, # 30 tablet, 2 Refills, Maintenance, 05/07/20 10:50:00 EDT, Tablet, [facility] #[id number], 162, cm, 05/07/20 8:55:00 EDT, Height Start Date: 05/07/20 Status: Ordered aspirin 81 mg oral delayed release tablet 81 mg, 1, tablet, By Mouth, Daily, # 90 tablet, Refills 5, Tot. Refills 5, Maintenance, 05/07/20 10:49:00 EDT, Route to Pharmacy Electronically, [facility] #[id number], 162, cm, 05/07/20 8:55:00EDT, Height Start Date: 05/07/20 Status: Ordered atorvastatin 40 mg oral tablet 1 tablet = 40 mg, By Mouth, Daily, # 90 tablet, 3 Refills, Maintenance, 10/22/19 14:35:30 EST, Tablet, 162, cm, 08/19/19 13:11:39 EDT, Height Start Date: 10/22/19 Status: Ordered bacitracin topical 500 u/gm ointment 1 application, Topically, 4 times a day, # 30 Gm, 0 Refills, Maintenance, 05/07/20 10:55:00 EDT, Ointment, [facility] #[id number], 1 application Topically 4 times a day,x7 days, 162, cm, 05/07/20 8:55:00 EDT, Height Start Date: 05/07/20 Stop Date: 05/14/20 Status: Ordered Colyte 4 Flavor oral powder for reconstitution 240 mL, By Mouth, Every 10 minutes, # 1 each, 0 Refills, Maintenance, 10/02/16 9:28:34, REC Powder Start Date: 10/02/16 Status: Ordered Flonase 50 mcg/inh nasal spray 1 sprays, Nares, Both, 2 times a day, PRN Congestion, # 16 Gm, 7 Refills, Maintenance, 05/07/20 10:48:00 EDT, [place], [facility] #[id number], 1 sprays Nares, Both 2 times a day,PRN:Congestion, 162, cm, 05/07/20 8:55:00 EDT, Height Start Date: 05/07/20 Status: Ordered FLUoxetine 20 mg oral capsule 20 mg, 1, capsule, By Mouth, Daily, # 30 capsule, Refills 0, Maintenance, 02/01/18 13:46:13 Start Date: 02/01/18 Status: Ordered Freestyle Lite Lancets See Instructions, # 50 units, Refills 11, Tot. Refills 11, Maintenance, 1 x daily fasting sugar fortype 2 diabetes. e11.9, 12/19/18 17:14:12 EST, Compound Start Date: 12/19/18 Status: Ordered Freestyle Lite Lancets See Instructions, # 50 units, Refills 11, Tot. Refills 11, Maintenance, use to test blood sugar once/day dx; dm E11.9, 07/06/16 14:04:07, Compound Start Date: 07/06/16 Status: Ordered Freestyle Lite Monitor See Instructions, # 1 each, Maintenance, dx dm type 2 e11.9 check bs 1 x per day, 12/19/18 17:15:27EST, Compound Start Date: 12/19/18 Status: Ordered Freestyle Lite Test Strips See Instructions, # 50 units, Refills 11, Tot. Refills 11, Maintenance, Check daily fasting sugar for type 2 diabetes., 12/19/18 17:14:11 EST, Compound Start Date: 12/19/18 Status: Ordered Freestyle Lite Test Strips See Instructions, # 50 units, Refills 11, Tot. Refills 11, Maintenance, use to test blood sugar once/day dx; dm E11.9, 07/06/16 14:02:40, Compound Start Date: 07/06/16 Status: Ordered Home Blood Pressure Monitor See Instructions, # 1 each, Maintenance, DX : HPTN - I10, 02/18/20 15:34:00 EDT, Compound Start Date: 02/18/20 Status: Ordered Insulin Syringe, BD Ultra-Fine 1 cc 31 G x 8 mm (5/16in) See Instructions, # 30 each, Refills 10, Tot. Refills 10, Maintenance, syringes to draw insulin, 05/27/13 13:58:49 Start Date: 05/27/13 Status: Ordered Lidocaine Viscous 2% solution 5 mL = 0.1 Gm, Topically, 4 times a day, PRN as needed for mouth sore pain, # 100 mL, 0 Refills, Maintenance, 12/22/19 15:47:00 EST, Solution, [facility] 5 mL Topically 4 times a day,PRN:as needed for mouth sore pain, 162, cm, ... Start Date: 12/22/19 Status: Ordered losartan 25 mg oral tablet 25 mg, 1, tablet, By Mouth, Daily, # 90 tablet, Refills 3, Tot. Refills 3, Maintenance, 02/02/20 16:29:00 EDT, Route to Pharmacy Electronically, [facility] #[id number], 162, cm, 12/22/19 14:37:00 EST, Height Start Date: 02/02/20 Stop Date: 01/27/21 Status: Ordered nabumetone 500 mg oral tablet 1 tablet = 500 mg, By Mouth, 2 times a day, # 10 tablet, 0 Refills, Maintenance, 05/29/18 16:07:59 EDT, Tablet Start Date: 05/29/18 Status: Ordered pair of atrex diabetic shoes pair of atrex diabetic shoes, See Instructions, # 1 pair, Refills 0, Tot. Refills 0, Maintenance, Diagnosis codes: E11.9 and L84, 07/10/19 17:57:09 EDT, Compound Start Date: 07/10/19 Status: Ordered Pen [place], 29 G x 12.7 mm BD Ultra Fine See Instructions, # 100 each, Refills 10, Tot. Refills 10, Maintenance, use as directed for Type 1 Diabetes Mellitus, 05/27/13 13:58:45 Start Date: 05/27/13 Stop Date: 04/22/14 Status: Ordered Pen [place], 31 G x 8 mm BD Ultra Fine III See Instructions, # 100 each, Refills 11, Tot. Refills 11, Maintenance, use as directed for Type 1 Diabetes Mellitus,, 05/27/13 13:58:47 Start Date: 05/27/13 Stop Date: 05/22/14 Status: Ordered plastazote diabetic shoe inserts plastazote diabetic shoe inserts, See Instructions, # 2 pair, Refills 11, Tot. Refills 11, Maintenance, Diagnosis codes E11.9, L84, 07/10/19 17:57:40 EDT, Compound Start Date: 07/10/19 Status: Ordered trazodone 50 mg oral tablet 1 tablet = 50 mg, By Mouth, Daily at bedtime, # 30 tablet, 0 Refills, Maintenance, Tablet Start Date: 04/04/12 Status: Ordered zolpidem 10 mg oral tablet 1 tablet = 10 mg, By Mouth, Daily at bedtime, PRN for sleep, 0 Refills, Maintenance, Tablet Start Date: 04/04/12 Status: Ordered Problem List Condition Effective Dates Status Health Status Inform ant Depression(Confirmed) 1 Active Diabetes Mellitus(Confirmed) 2009 Active Colon, diverticulosis(Confirmed) Active Sigmoid diverticulosis(Confirmed) Active Obesity(Confirmed) Active 1followed by Dr. Dalton Box. and therapist. Vital Signs Most recent to oldest [Reference [...]
--- OUTSIDE RECORDS SUMMARY | 2023-10-28 19:15 | XMS_ITS | Continuity of Care Document ---
Author Name Unknown Organization [facility] Address [address] [place] [address]- Care Team Providers Care Senior Scrum Master Name Role Phone Opal NUNEZ, Emily Powell Primary Care Physician [facility]counter [facility] Date(s): 01/03/21 - 02/02/21 [facility] [address] [place] [id number] Allergies, Adverse Reactions, Alerts Substance Reaction Severity [...] tetanus/diphtheria/pertussis, acel(Tdap) 6 04/04/12 Given 1Location History: [facility] 2Admin Note: [facility] [id number] 3Admin Note: Administered at [facility] [place] 4Admin Note: given at [facility] 5Admin Note: VIS 08/20 6Admin Note: [...] 2 Refills, Maintenance, 05/07/20 10:50:00 EDT, Tablet, [facility] #[id number], 162, cm, 05/07/20 8:55:00 EDT, Height Start Date: 05/07/20 Status: Ordered aspirin 81 mg oral delayed release tablet 81 mg, 1, tablet, By Mouth, Daily, # 90 tablet, Refills 7, Tot. Refills 7, Maintenance, 10/21/20 15:17:00 EST, Route to Pharmacy Electronically, [facility] #[id number], 162, cm, 08/24/20 12:57:00 EDT, Height, 101.4, kg, 08/07/20 16:24:00 EDT, Dry... Start Date: 10/21/20 Status: Ordered atorvastatin 40 mg oral tablet 1 tablet = 40 mg, By Mouth, Daily, # 90 tablet, 3 Refills, Maintenance, 07/26/20 17:31:00 EDT, Tablet, [facility] #[id number], 162, cm, 05/07/20 8:55:00 EDT, Height Start Date: 07/26/20 Status: Ordered bacitracin topical 500 u/gm ointment 1 application, Topically, 4 times a day, # 30 Gm, 0 Refills, Maintenance, 05/07/20 10:55:00 EDT, Ointment, [facility] #[id number], 1 application Topically 4 times a day,x7 days, 162, cm, 05/07/20 8:55:00 EDT, Height Start Date: 05/07/20 Stop Date: 05/14/20 Status: Ordered buPROPion 200 mg/12 hours (SR) oral tablet, extended release via psychiatry, 0 Refills, Maintenance, 08/11/20 13:38:00 EDT Start Date: 08/11/20 Status: Ordered diclofenac 1% topical gel 1 application, Topically, 4 times a day, # 100 Gm, 2 Refills, Maintenance, 11/23/20 18:40:00 EST, Gel, [facility] #[id number], 160, cm, 11/15/20 7:29:00 EST, Height, 101.4, kg, 08/07/20 16:24:00EDT, Dry Weight Start Date: 11/23/20 Status: Ordered Flonase 50 mcg/inh nasal spray 1 sprays, Nares, Both, 2 times a day, PRN Congestion, # 16 Gm, 7 Refills, Maintenance, 05/07/20 10:48:00 EDT, [place], [facility] #[id number], 1 sprays Nares, Both 2 times a [...] 5 Refills, Maintenance, 01/24/21 11:13:00 EDT, [place], [facility] #[id number], Partial fill upon patient request if the prescription is for a schedule II opioid drug., 1... Start Date: 01/24/21 Status: Ordered losartan 25 mg oral tablet 25 mg, 1, tablet, By Mouth, Daily, # 90 tablet, Refills 7, Tot. Refills 7, Maintenance, 10/21/20 15:16:00 EST, Route to Pharmacy Electronically, [facility] #[id number], 162, cm, 08/24/20 12:57:00 EDT, Height, 101.4, kg, 08/07/20 16:24:00 EDT, Dry... Start Date: 10/21/20 Stop Date: 10/11/22 Status: Ordered omeprazole 20 mg oral enteric coated capsule 1 capsule = 20 mg, By Mouth, Daily, # 30 capsule, 5 Refills, Maintenance, 10/21/20 15:18:00 EST, ECCapsule, [facility] #[id number], Partial fill upon patient request if the prescription is for a schedule II opioid drug., 162, cm, 08/24/20 12:57:... Start Date: 10/21/20 Status: Ordered pair of atrex diabetic shoes [...] 7:44:00 EDT, 01/20/21 7:44:00 EST, ER Tablet, [facility] #[id number], Partialfill upon patient request if the prescription [...] diabetes mellitus(Confirmed) Active Hypertension(Confirmed) Active Obesity(Confirmed) Active BHN/VAHID/Omid Antoine [phone]/Health [facility] active care coordination(Confirmed) Active 1followed by Dr. Dalton Box. and therapist. 2inertal and external on 2017 colonoscopy Social History Social History Type Response Smoking Status Former smoker; Other : quit per pt 03/08/18; entered on: 03/08/18 Sex Male
--- OUTSIDE RECORDS SUMMARY | 2023-10-28 19:15 | XMS_ITS | Continuity of Care Document ---
Author Name Unknown Organization [facility] Address [address] [place] [address]- Care Team Providers Care Single End Sewer Name Role Phone Rogelio NUNEZ, Arya Tompkins Primary Care Physician Encounter [facility] [id number] Date(s): 11/14/22 - 12/23/[address] [address]- Attending Physician: Macrina Da Silva MD Admitting Physician: Macrina Da Silva MD Referring Physician: Macrina Da Silva MD Allergies, Adverse Reactions, Alerts Substance Reaction Severity Status Latex Active metFORMIN lightheadedness GI symptoms Active Immunizations Given and Recorded Vaccine Date Status Refusal Reason tetanus/diphtheria/pertussis, acel(Tdap) 09/11/22 Given tetanus/diphtheria/pertussis, acel(Tdap) 1 04/04/12 Given [id number] 12y+ bivalent booster vax 08/24/22 Recorded influenza [...] inactivated 5 07/31/12 Gi rojelio SARS-CoV-2 mRNA (vleblom-taga-dcrah) vax 03/08/22 Recorded zoster vaccine, inactivated 01/31/22 Recorded zoster vaccine, inactivated 08/02/21 Recorded SARS-CoV-2 (COVID-19) mRNA BNT-162b2 vac 10/29/21 Recorded SARS-CoV-2 (COVID-19) mRNA BNT-162b2 vac 02/17/21 Recorded SARS-CoV-2 (COVID-19) mRNA BNT-162b2 vac 01/27/21 Recorded pneumococcal 23-valent vaccine 6 06/05/12 Given 1Admin Note: VIS 11/23 2Location History[facility] 3Admin Note: [facility] [id number] 4Admin Note: Administered at [facility] [place] 5Admin Note: given at [facility] 6Admin Note: VIS 08/20 Medications 3 pair [...] tablet, 3 Refills, Maintenance, 11/03/22 16:19:00 EST, [facility] #[id number], Partial fill upon patient request if the prescription is for a schedule II opioid drug., 160, cm... Start Date: 11/03/22 Status: Ordered Allergy (Loratadine) 10 mg oral tablet 1 tablet = 10 mg, By Mouth, Daily, # 30 tablet, 2 Refills, Maintenance, 05/07/20 10:50:00 EDT, Tablet, [facility] #[id number], 162, cm, 05/07/20 8:55:00 EDT, Height Start Date: 05/07/20 Status: Ordered aspirin 81 mg oral delayed release tablet 81 mg, 1, tablet, By Mouth, Daily, # 90 tablet, Refills 7, Tot. Refills 7, Maintenance, 10/21/20 15:17:00 EST, Route to Pharmacy Electronically, [facility] #[id number], 162, cm, 08/24/20 12:57:00 EDT, Height, 101.4, kg, 08/07/20 16:24:00 EDT, Dry... Start Date: 10/21/20 Status: Ordered atorvastatin 40 mg oral tablet 1 tablet = 40 mg, By Mouth, Daily, # 90 tablet, 1 Refills, Maintenance, 07/20/22 14:56:00 EDT, Tablet, [facility] #[id number], 160, cm, 08/02/21 9:33:00 EDT, Height, 101.4, kg, 08/07/20 16:24:00EDT, Dry Weight Start Date: 07/20/22 Status: Ordered bacitracin topical 500 u/gm ointment 1 application, Topically, 4 times a day, # 30 Gm, 0 Refills, Maintenance, 05/07/20 10:55:00 EDT, Ointment, [facility] #[id number], 1 application Topically 4 times a day,x7 [...] 0 Refills, Maintenance, 11/03/22 14:34:00 EST, Capsule, [facility] #[id number], Partial fill upon patient request if the prescription is for a schedule II opioid drug., 160,... Start Date: 11/03/22 Stop Date: 11/10/22 Status: Ordered diclofenac 1% topical gel 1 application, Topically, 4 times a day, # 100 Gm, 4 Refills, Maintenance, 11/03/22 14:30:00 EST, Gel, [facility] #[id number], 160, cm, 11/03/22 13:45:00 EST, Height Start Date: 11/03/22 Status: Ordered Flonase 50 mcg/inh nasal spray 1 sprays, Nares, Both, 2 times a day, PRN Congestion, # 16 Gm, 7 Refills, Maintenance, 05/07/20 10:48:00 EDT, [place], [facility] #[id number], 1 sprays Nares, Both 2 times a [...] 5 Refills, Maintenance, 01/24/21 11:13:00 EDT, [place], [facility] #[id number], Partial fill upon patient request if the prescription is for a schedule II opioid drug., 1... Start Date: 01/24/21 Status: Ordered losartan 25 mg oral tablet 25 mg, 1, tablet, By Mouth, Daily, # 90 tablet, Refills 1, Tot. Refills 1, Maintenance, 10/23/22 11:41:00 EST, Route to Pharmacy Electronically, [facility] #[id number], 160, cm, 08/24/22 16:58:00 EDT, Height Start Date: 10/23/22 Stop Date: 04/21/23 Status: Ordered omeprazole 20 mg oral enteric coated capsule 1 capsule, By Mouth, Daily, for 90 days, # 90 capsule, 0 Refills, Physician Stop 01/17/23 13:09:00 EST, 10/19/22 13:09:00 EST, [facility] #[id number], 160, cm, 08/24/22 16:58:00 EDT, Height Start [...] Confirmed Active Obesity Confirmed Active BHN/CCA/CLARA-Janelle Antoine [phone]/Health [facility] active care coordination Confirmed Active Severe obesity (BMI 35.0-39.9) with comorbidity Confirmed Active 1followed by Dr. Dalton Box. and therapist. 2inertal and external on 2017 colonoscopy Social History Social History Type Response Smoking Status Former smoker; Other : quit per pt 03/08/18; entered on: 03/08/18 Sex Male Patient Care team information Care Team Personnel Name: Arya Mercado MD Position: [facility] Resident Member Role: PCP Address: Address: [address] [place] [address] Care Team Related Persons Name: SAMANTHA DAILY Name: EDUARDO DUNBAR Address: [address] [place] [address]
--- OUTSIDE RECORDS SUMMARY | 2023-10-28 19:15 | XMS_ITS | Continuity of Care Document ---
Author Name Unknown Organization [facility] Adult Medicine Address [address] [place] [address]- Care Team Providers Care Jig Inspector Name Role Phone Arya Mercado MD Primary Care Physician Encounter [facility] Date(s): 08/31/21 - 11/11/21 [facility] Adult Medicine [address] [place] [address]- Attending Physician: Not on Staff, Attending MD Referring Physician: Arya Mercado MD Allergies, Adverse Reactions, Alerts Substance Reaction Severity Status Latex Active metFORMIN lightheadedness GI symptoms Active Immunizations Given and Recorded Vaccine Date Status Refusal Reason SARS-CoV-2 (COVID-19) mRNA BNT-162b2 vac 02/17/21 Recorded SARS-CoV-2 (COVID-19) mRNA BNT-162b2 vac 01/27/21 Recorded influenza virus vaccine, inactivated 1 08/09/18 Re corded influenza virus vaccine, inactivated 2 07/30/17 Gi rojelio influenza virus vaccine, inactivated 3 10/31/16 Gi rojelio influenza virus vaccine, inactivated 09/17/13 Give n influenza virus vaccine, inactivated 4 07/31/12 Gi rojelio pneumococcal 23-valent vaccine 5 06/05/12 Given tetanus/diphtheria/pertussis, acel(Tdap) 6 04/04/12 Given 1Location History: [facility] 2Admin Note: [facility] [id number] 3Admin Note: Administered at [facility] in [place] 4Admin Note: given at [facility] 5Admin Note: VIS 08/20 6Admin Note: VIS 11/23 Medications 3 pair plastazote diabetic shoe inserts 3 pair plastazote diabetic shoe inserts, See Instructions, # 6 each, Refills 11, Tot. Refills 11, Maintenance, Diagnosis codes E11.9, L84, 07/27/21 18:23:00 EDT, Compound Start Date: 07/27/21 Status: Ordered Allergy (Loratadine) 10 mg oral tablet 1 tablet = 10 mg, By Mouth, Daily, # 30 tablet, 2 Refills, Maintenance, 05/07/20 10:50:00 EDT, Tablet, [facility] #[id number], 162, cm, 05/07/20 8:55:00 EDT, Height Start Date: 05/07/20 Status: Ordered aspirin 81 mg oral delayed release tablet 81 mg, 1, tablet, By Mouth, Daily, # 90 tablet, Refills 7, Tot. Refills 7, Maintenance, 10/21/20 15:17:00 EST, Route to Pharmacy Electronically, [facility] #[id number], 162, cm, 08/24/20 12:57:00 EDT, Height, 101.4, kg, 08/07/20 16:24:00 EDT, Dry... Start Date: 10/21/20 Status: Ordered atorvastatin 40 mg oral tablet 1 tablet = 40 mg, By Mouth, Daily, # 90 tablet, 1 Refills, Maintenance, 08/02/21 9:28:00 EDT, Tablet, [facility] #[id number], 160, cm, 08/02/21 8:58:00 EDT, Height, 101.4, kg, 08/07/20 16:24:00 EDT, Dry Weight Start Date: 08/02/21 Status: Ordered bacitracin topical 500 u/gm ointment 1 application, Topically, 4 times a day, # 30 Gm, 0 Refills, Maintenance, 05/07/20 10:55:00 EDT, Ointment, [facility] #[id number], 1 application Topically 4 times a day,x7 [...] 1 Refills, Maintenance, 03/09/21 14:32:00 EDT, Gel, [facility] #[id number], 160, cm, 01/10/21 14:43:00 EST, Height, 101.4, kg, 08/07/20 16:24:00 EDT, Dry Weight Start Date: 03/09/21 Status: Ordered Flonase 50 mcg/inh nasal spray 1 sprays, Nares, Both, 2 times a day, PRN Congestion, # 16 Gm, 7 Refills, Maintenance, 05/07/20 10:48:00 EDT, [place], [facility] #[id number], 1 sprays Nares, Both 2 times a [...] 5 Refills, Maintenance, 01/24/21 11:13:00 EDT, Film, [facility] #[id number], Partial fill upon patient request if the prescription is for a schedule II opioid drug., 1... Start Date: 01/24/21 Status: Ordered losartan 25 mg oral tablet 25 mg, 1, tablet, By Mouth, Daily, # 90 tablet, Refills 3, Tot. Refills 3, Maintenance, 08/02/21 9:29:00 EDT, Route to Pharmacy Electronically, [facility] #[id number], 160, cm, 08/02/21 8:58:00 EDT, Height, 101.4, kg, 08/07/20 16:24:00 EDT, Dry W... Start Date: 08/02/21 Stop Date: 07/28/22 Status: Ordered Mapap Arthritis Pain 650 mg oral tablet, extended release 1 tablet, By Mouth, Every 8 hours, PRN NEEDED FOR MODERATE PAIN, # 100 each, 0 Refills, Maintenance, 10/31/21 11:25:00 EST, [facility] #[id number], 160, cm, 08/02/21 9:33:00 EDT, Height, 101.4, kg, 08/07/20 16:24:00 EDT, Dry Weight Start Date: 10/31/21 Status: Ordered meloxicam 15 mg oral tablet 1 tablet = 15 mg, By Mouth, Daily, # 14 tablet, 0 Refills, Maintenance, 03/23/21 10:46:00 EDT, Tablet, [facility] #[id number], Partial fill upon patient request if the prescription is for a schedule II opioid drug., 160, cm, 03/23/21 10:12:00 EDT... Start Date: 03/23/21 Stop Date: 04/06/21 Status: Ordered omeprazole 20 mg oral enteric coated capsule 1 capsule, By Mouth, Daily, # 30 capsule, 2 Refills, 10/31/21 11:25:00 EST, [facility] #[id number], 160, cm, 08/02/21 9:33:00 EDT, Height, 101.4, kg, 08/07/20 16:24:00 EDT, Dry Weight Start Date: 10/31/21 Status: Ordered pair of atrex diabetic shoes pair of atrex diabetic shoes, See Instructions, # 2 each, Refills 0, Tot. Refills 0, Maintenance, Diagnosis codes: E11.9 and L84, 07/27/21 18:23:00 EDT, Compound Start Date: 07/27/21 Status: Ordered Shingrix intramuscular injection = 0.5 mL, Intramuscular, Once, repeat dose in 2 to 6 months, # 2 each, 0 Refills, Soft Stop, 08/02/21 9:40:00 EDT, Pow[place], [facility] #[id number], Partial fill upon patient request if the prescription is for a schedule II opioid drug., 0.5 mL Int... Start Date: 08/02/21 Status: Ordered traZODone 100 mg oral tablet via psychiatry, Refills 0, Maintenance, 08/11/20 13:38:00 EDT Start Date: 08/11/20 Status: Ordered Voltaren 1% topical gel 1 application, Topically, 4 times a day, # 100 Gm, 4 Refills, Maintenance, 03/23/21 10:48:00 EDT, [facility] #[id number], Partial fill upon patient request if the [...] diabetes mellitus(Confirmed) Active Hypertension(Confirmed) Active Obesity(Confirmed) Active N/CCA/CLARA-Janelle Antoine [phone]/Health [facility] active care coordination(Confirmed) Active 1followed by Dr. Dalton Box. and therapist. 2inertal and external on 2017 colonoscopy Social History Social History Type Response Smoking Status Former smoker; Other : quit per pt 03/08/18; entered on: 03/08/18 Sex Male
--- OUTSIDE RECORDS SUMMARY | 2023-10-28 19:15 | XMS_ITS | Continuity of Care Document ---
Author Name Unknown Organization [facility] Address [address] [place] [address]- Care Team Providers Care Retail Loan Originator Name Role Phone Opal NUNEZ, Emily Powell Primary Care Physician [place] [facility] [place]s): 08/11/20 - 09/16/20 [facility] [address] [address] Attending Physician: Boubacar TITUS, Corina Guerra Admitting Physician: Boubacar TITUS, Corina Guerra Referring Physician: Opal NUNEZ, Emily Powell Allergies, [...] tetanus/diphtheria/pertussis, acel(Tdap) 6 04/04/12 Given 1Location History: [facility] 2Admin Note: [facility] [id number] 3Admin Note: Administered at [facility] [place] 4Admin Note: given at [facility] 5Admin Note: VIS 08/20 6Admin Note: VIS 11/23 Medications Allergy (Loratadine) 10 mg oral tablet 1 tablet = 10 mg, By Mouth, Daily, # 30 tablet, 2 Refills, Maintenance, 05/07/20 10:50:00 EDT, Tablet, [facility] #[id number], 162, cm, 05/07/20 8:55:00 EDT, Height Start Date: 05/07/20 Status: Ordered aspirin 81 mg oral delayed release tablet 81 mg, 1, tablet, By Mouth, Daily, # 90 tablet, Refills 5, Tot. Refills 5, Maintenance, 05/07/20 10:49:00 EDT, Route to Pharmacy Electronically, [facility] #[id number], 162, cm, 05/07/20 8:55:00EDT, Height Start Date: 05/07/20 Status: Ordered atorvastatin 40 mg oral tablet 1 tablet = 40 mg, By Mouth, Daily, # 90 tablet, 3 Refills, Maintenance, 07/26/20 17:31:00 EDT, Tablet, [facility] #[id number], 162, cm, 05/07/20 8:55:00 EDT, Height Start Date: 07/26/20 Status: Ordered bacitracin topical 500 u/gm ointment 1 application, Topically, 4 times a day, # 30 Gm, 0 Refills, Maintenance, 05/07/20 10:55:00 EDT, Ointment, [facility] #60161, 1 application Topically 4 times a day,x7 [...] 2 Refills, Maintenance, 08/24/20 13:23:00 EDT, Gel, [facility] #62625, 162, cm, 08/24/20 12:57:00 EDT, Height, 101.4, kg, 08/07/20 16:24:00 EDT, Dry Weight Start Date: 08/24/20 Status: Ordered Flonase 50 mcg/inh nasal spray 1 sprays, Nares, Both, 2 times a day, PRN Congestion, # 16 Gm, 7 Refills, Maintenance, 05/07/20 10:48:00 EDT, [place], [facility] #31101, 1 sprays Nares, Both 2 times a [...] 02/02/20 16:29:00 EDT, Route to Pharmacy Electronically, [facility] #[id number], 162, cm, 12/22/19 14:37:00 EST, Height Start Date: 02/02/20 Stop Date: 01/27/21 Status: Ordered omeprazole 40 mg oral enteric coated capsule 1 capsule = 40 mg, By Mouth, Daily, before a meal, # 30 capsule, 0 Refills, Maintenance, 08/11/20 13:46:00 EDT, EC Capsule, [facility] #[id number], 162, cm, 05/07/20 8:55:00 EDT, Height, 101.4, [...]
--- OUTSIDE RECORDS SUMMARY | 2023-10-28 19:15 | XMS_ITS | Continuity of Care Document ---
Author Name Unknown Organization [facility] Address [address] [place] [address]- Care Team Providers Care Laboratory Phlebotomist Name Role Phone Opal NUNEZ, Emily Powell Primary Care Physician Encounter [facility] Date(s): 08/07/20 - 08/07/[address] [address]- [facility] Encounter Diagnosis UGIB (upper gastrointestinal bleed)(Final) - 08/07/20 Discharge Disposition: A-D/C Home Attending Physician: Sarina Rojas DO Admitting Physician: Sarina Rojas DO Referring Physician: Not on Staff, Referring MD Allergies, Adverse Reactions, Alerts Substance Reaction [...] tetanus/diphtheria/pertussis, acel(Tdap) 6 04/04/12 Given 1Location History: [facility] 2Admin Note: [facility] [phone] 3Admin Note: Administered at [facility] in [place] 4Admin Note: given at [facility] 5Admin Note: VIS 08/20 6Admin Note: VIS 11/23 Medications Alcohol Wipes See Instructions, # 30 application, Refills 5, Tot. Refills 5, Maintenance, ., 04/12/12 11:43:06 Start Date: 04/12/12 Status: Ordered Allergy (Loratadine) 10 mg oral tablet 1 tablet = 10 mg, By Mouth, Daily, # 30 tablet, 2 Refills, Maintenance, 05/07/20 10:50:00 EDT, Tablet, [facility] #[id number], 162, cm, 05/07/20 8:55:00 EDT, Height Start Date: 05/07/20 Status: Ordered aspirin 81 mg oral delayed release tablet 81 mg, 1, tablet, By Mouth, Daily, # 90 tablet, Refills 5, Tot. Refills 5, Maintenance, 05/07/20 10:49:00 EDT, Route to Pharmacy Electronically, [facility] #[id number], 162, cm, 05/07/20 8:55:00EDT, Height Start Date: 05/07/20 Status: Ordered atorvastatin 40 mg oral tablet 1 tablet = 40 mg, By Mouth, Daily, # 90 tablet, 3 Refills, Maintenance, 07/26/20 17:31:00 EDT, Tablet, [facility] #[id number], 162, cm, 05/07/20 8:55:00 EDT, Height Start Date: 07/26/20 Status: Ordered bacitracin topical 500 u/gm ointment 1 application, Topically, 4 times a day, # 30 Gm, 0 Refills, Maintenance, 05/07/20 10:55:00 EDT, Ointment, [facility] #41258, 1 application Topically 4 times a day,x7 days, 162, cm, 05/07/20 8:55:00 EDT, Height Start Date: 05/07/20 Stop Date: 05/14/20 Status: Ordered Colyte 4 Flavor oral powder for reconstitution 240 mL, By Mouth, Every 10 minutes, # 1 each, 0 Refills, Maintenance, 10/02/16 9:28:34, REC Powder Start Date: 10/02/16 Status: Ordered diclofenac 3% topical gel = 0.5 Gm, Topically, 2 times a day, # 100 Gm, 0 Refills, Maintenance, 08/07/20 16:09:00 EDT, Gel, [facility] #76174, 0.5 Gm Topically 2 times a day, 162, cm, 05/07/20 8:55:00 EDT, Height, 101.4, kg, 08/07/20 13:01:00 EDT, Dry Weight Start Date: 08/07/20 Status: Ordered Flonase 50 mcg/inh nasal spray 1 sprays, Nares, Both, 2 times a day, PRN Congestion, # 16 Gm, 7 Refills, Maintenance, 05/07/20 10:48:00 EDT, [place], [facility] #[id number], 1 sprays Nares, Both 2 times a [...] 0 Refills, Maintenance, 12/22/19 15:47:00 EST, Solution, [facility], 5 mL Topically 4 times a day,PRN:as needed for mouth sore pain, 162, cm, ... Start Date: 12/22/19 Status: Ordered losartan 25 mg oral tablet 25 mg, 1, tablet, By Mouth, Daily, # 90 tablet, Refills 3, Tot. Refills 3, Maintenance, 02/02/20 16:29:00 EDT, Route to Pharmacy Electronically, [facility] #[id number], 162, cm, 12/22/19 14:37:00 EST, Height Start [...] Compound Start Date: 07/10/19 Status: Ordered Pen Luke, 29 G x 12.7 mm BD Ultra Fine See Instructions, # 100 each, Refills 10, Tot. Refills 10, Maintenance, use as directed for Type 1 Diabetes Mellitus, 05/27/13 13:58:45 Start Date: 05/27/13 Stop Date: 6/11/14 Status: Ordered Pen Luke, 31 G x 8 mm BD Ultra [...] EDT, Compound Start Date: 07/10/19 Status: Ordered Protonix 40 mg oral delayed release tablet 1 tablet = 40 mg, By Mouth, Daily, # 30 tablet, 0 Refills, Maintenance, 08/07/20 16:05:00 EDT, EC Tablet, 162, cm, 05/07/20 8:55:00 EDT, Height, 101.4, kg, 08/07/20 13:01:00 EDT, Dry Weight Start Date: 08/07/20 Status: Ordered trazodone 50 mg oral tablet [...] Most recent to oldest [Reference Range]: 1 2 3 Weight 101.4 kg (08/07/20 4:24 PM) 101.4 kg (08/07/20 1:01 PM) 101.4 kg (08/07/20 11:17 AM) Oxygen Saturation [94-100 %] 100 % (08/07/20 4:24 PM) 97 % (08/07/20 1:01 PM) 98 % (08/07/20 10:15 AM) Pulse Rate [55-90 bpm] 75 bpm (08/07/20 4:24 PM) 79 bpm (08/07/20 1:01 PM) 105 bpm *H* (08/07/20 10:15 AM) Blood Pressure [90-138/55-84 mm Hg] 130/82mm Hg (08/07/20 4:24 PM) 128/87mm Hg (08/07/20 1:01 PM) 150/94mm Hg *H* (08/07/20 10:15 AM) Respiratory Rate [16-30 br/min] 17 br/min (08/07/20 4:24 PM) 19 br/min (08/07/20 1:01 PM) 17 br/min (08/07/20 10:15 AM) Temperature [96.8-100.4 DegF] 98.3 DegF (08/07/20 4:24 PM) 98.1 DegF (08/07/20 1:01 PM) 98.6 DegF (08/07/20 10:15 AM) Mode of Delivery (Oxygen) Room air (08/07/20 4:24 PM) Room air (08/07/20 1:01 PM) Room air (08/07/20 10:15 AM) Blood pressure sites Arm, left (08/07/20 1:01 PM) Arm, left (08/07/20 10:15 AM) Temperature Route Oral (08/07/20 4:24 PM) Oral (08/07/20 1:01 PM) Oral (08/07/20 10:15 AM) Dry Weight 101.4 kg (08/07/20 4:24 PM) 101.4 kg (08/07/20 1:01 PM) 101.4 kg (08/07/20 11:17 AM) Weight Obtained Via Standing scale (08/07/20 10:15 AM) Dry Weight Obtained Via Standing scale (08/07/20 10:15 AM) Social History Social History Type Response Smoking Status Former smoker; Other : quit per pt 03/08/18; entered on: 03/08/18 Sex Male
--- OUTSIDE RECORDS SUMMARY | 2023-10-28 19:15 | XMS_ITS | Continuity of Care Document ---
Author Name Unknown Organization [facility] Address [address] [place] [address]- Care Team Providers Care Supervisor Whipped Topping Name Role Phone Rogelio NUNEZ, Arya Ruizradha Primary Care Physician [facility]counter [facility] Date(s): 01/15/23 - 02/14/23 [facility] [address] [place] [id number] Allergies, Adverse Reactions, Alerts Substance Reaction Severity Status Latex Active metFORMIN lightheadedness GI symptoms Active Immunizations Given and Recorded Vaccine Date Status Refusal Reason tetanus/diphtheria/pertussis, acel(Tdap) 09/11/22 Given tetanus/diphtheria/pertussis, acel(Tdap) 1 04/04/12 Given [id number] 12y+ bivalent booster vax 08/24/22 Recorded influenza [...] inactivated 5 07/31/12 Gi rojelio SARS-CoV-2 mRNA ([id number]) vax 03/08/22 Recorded zoster vaccine, inactivated 01/31/22 Recorded zoster vaccine, inactivated 08/02/21 Recorded SARS-CoV-2 (COVID-19) mRNA BNT-162b2 vac 10/29/21 Recorded SARS-CoV-2 (COVID-19) mRNA BNT-162b2 vac 02/17/21 Recorded SARS-CoV-2 (COVID-19) mRNA BNT-162b2 vac 01/27/21 Recorded pneumococcal 23-valent vaccine 6 06/05/12 Given 1Admin Note: VIS 11/23 2Location History: [facility] 3Admin Note: [facility] [id number] 4Admin Note: Administered at [facility] in [place] 5Admin Note: given at [facility] 6Admin Note: VIS 08/20 Medications 3 [...] 8 hours, PRN Pain , Moderate, # 90 tablet, 5 Refills, Maintenance, 02/06/23 18:11:00 EDT, [facility] #[id number], Partial fill upon patient request if the prescription is for a schedule II opioid drug., 160, cm,... Start Date: 02/06/23 Status: Ordered Allergy (Loratadine) 10 mg oral tablet 1 tablet = 10 mg, By Mouth, Daily, # 30 tablet, 2 Refills, Maintenance, 05/07/20 10:50:00 EDT, Tablet, [facility] #[id number], 162, cm, 05/07/20 8:55:00 EDT, Height Start Date: 05/07/20 Status: Ordered aspirin 81 mg oral delayed release tablet 81 mg, 1, tablet, By Mouth, Daily, # 90 tablet, Refills 7, Tot. Refills 7, Maintenance, 10/21/20 15:17:00 EST, Route to Pharmacy Electronically, [facility] #[id number], 162, cm, 08/24/20 12:57:00 EDT, Height, 101.4, kg, 08/07/20 16:24:00 EDT, Dry... Start Date: 10/21/20 Status: Ordered atorvastatin 40 mg oral tablet 1 tablet = 40 mg, By Mouth, Daily, # 90 tablet, 1 Refills, Maintenance, 01/05/23 9:28:00 EST, Tablet, [facility] #[id number], 160, cm, 01/04/23 8:32:00 EST, Height Start Date: 01/05/23 Status: Ordered bacitracin topical 500 u/gm ointment 1 application, Topically, 4 times a day, # 30 Gm, 0 Refills, Maintenance, 05/07/20 10:55:00 EDT, Ointment, [facility] #[id number], 1 application Topically 4 times a day,x7 [...] 0 Refills, Maintenance, 11/03/22 14:34:00 EST, Capsule, [facility] #[id number], Partial fill upon patient request if the prescription is for a schedule II opioid drug., 160,... Start Date: 11/03/22 Stop Date: 11/10/22 Status: Ordered diclofenac 1% topical gel 1 application, Topically, 4 times a day, # 100 Gm, 4 Refills, Maintenance, 11/03/22 14:30:00 EST, Gel, [facility] #[id number], 160, cm, 11/03/22 13:45:00 EST, Height Start Date: 11/03/22 Status: Ordered Flonase 50 mcg/inh nasal spray 1 sprays, Nares, Both, 2 times a day, PRN Congestion, # 16 Gm, 7 Refills, Maintenance, 05/07/20 10:48:00 EDT, [place], [facility] #[id number], 1 sprays Nares, Both 2 times a day,PRN:Congestion, 162, cm, 05/07/20 8:55:00 EDT, Height Start Date: 05/07/20 Status: Ordered FLUoxetine 20 mg oral capsule via psychiatry, Refills 0, Maintenance, 08/11/20 13:38:00 EDT Start Date: 08/11/20 Status: Ordered lidocaine 5% topical film 1 patch, Topically, Daily, PRN Pain , Mild, remove after 12 hours, # 13 each, 5 Refills, Maintenance, 01/24/21 11:13:00 EDT, [place], [facility] #[id number], Partial fill upon patient request if the prescription is for a schedule II opioid drug., 1... Start Date: 01/24/21 Status: Ordered losartan 25 mg oral tablet 1 tablet, By Mouth, Daily, # 90 tablet, 1 Refills, Maintenance, 02/13/23 8:27:00 EDT, [facility] #[id number], 160, cm, 01/09/23 10:35:00 EST, Height Start Date: 02/13/23 Status: Ordered One Touch Delica Lancets See Instructions, # 100 each, Refills 3, Tot. Refills 3, Maintenance, 1 box = 100 lancets CHECK BS 1 X PER DAY E11.9, 01/09/23 16:32:00 EST, Supply, 160, cm, 01/09/23 10:35:00 EST, Height Start Date: 01/09/23 Status: Ordered One Touch Delica Lancing System See Instructions, # 1 each, Maintenance, CHECK BS 1 X PER DAY E11.9, 01/09/23 16:32:00 EST, Supply,160, cm, 01/09/23 10:35:00 EST, Height Start Date: 01/09/23 Status: Ordered One Touch Ultra Test Strips See Instructions, # 50 each, Refills 11, Tot. Refills 11, Maintenance, CHECK BS 1 X PER DAY E11.9, 01/09/23 16:31:00 EST, Supply, 160, cm, 01/09/23 10:35:00 EST, Height Start Date: 01/09/23 Status: Ordered One Touch UltraSmart Glucose Meter See Instructions, # 1 each, Maintenance, CHECK BS 1 X PER DAY E11.9, 01/09/23 16:31:00 EST, Supply,160, cm, 01/09/23 10:35:00 EST, Height Start Date: 01/09/23 Status: Ordered pair of atrex diabetic shoes pair of atrex diabetic shoes, See Instructions, # 2 each, Refills 0, Tot. Refills 0, Maintenance, Diagnosis codes: E11.9 and L84, 08/25/22 17:10:00 EDT, Compound Start Date: 08/25/22 Status: Ordered Right shoulder sling Right shoulder sling, See Instructions, # 2 each, Refills 0, Tot. Refills 0, Maintenance, Wear as needed for shoulder pain, do not wear for more than 1 hour at a time., 01/04/23 9:17:00 EST, Supply, 160, cm, 01/04/23 8:32:00 EST, Height Start Date: 01/04/23 Status: Ordered traZODone 100 mg oral tablet [...] Active Hypertension Confirmed Active Obesity Confirmed Active Osteoarthritis Confirmed Active BHN/CCA/CP-Janelle Antoine [phone]/Health group home active care coordination Confirmed Active Severe obesity (BMI 35.0-39.9) with comorbidity Confirmed Active 1followed by Dr. Dalton Box. and therapist. 2inertal and external on 2016 colonoscopy Social History Social History Type Response Smoking Status Former smoker; Other : quit per pt 03/08/18; entered on: 03/08/18 Sex Male Patient Care team information Care Team Personnel Name: Arya Mercado MD Position: [facility] Resident Member Role: PCP Address: Address: [address] [place] [address] [place] [address]- Care Team Related Persons Name: SAMANTHA DAILY Name: EDUARDO DUNBAR Address: home [address] [place] [address]
--- OUTSIDE RECORDS SUMMARY | 2023-10-28 19:16 | XMS_ITS | Continuity of Care Document ---
Author Name Unknown Organization [facility] Address [address] [place] [address]- Care Team Providers Care Tourist Information Officer Name Role Phone Opal NUNEZ, Emily Powell Primary Care Physician Encounter [facility] Date(s): 08/07/20 - 09/06/20 [facility] [address] [place] [address]- [facility] Attending Physician: Collette Castillo Admitting [...] tetanus/diphtheria/pertussis, acel(Tdap) 6 04/04/12 Given 1[facility] History[facility] 2Admin Note: [facility] [id number] 3Admin Note: Administered at [facility] in [place] 4Admin Note: given at [facility] 5Admin Note: VIS 08/20 6Admin Note: VIS 11/23 Medications Allergy (Loratadine) 10 mg oral tablet 1 tablet = 10 mg, By Mouth, Daily, # 30 tablet, 2 Refills, Maintenance, 05/07/20 10:50:00 EDT, Tablet, [facility] #[id number], 162, cm, 05/07/20 8:55:00 EDT, Height Start Date: 05/07/20 Status: Ordered aspirin 81 mg oral delayed release tablet 81 mg, 1, tablet, By Mouth, Daily, # 90 tablet, Refills 5, Tot. Refills 5, Maintenance, 05/07/20 10:49:00 EDT, Route to Pharmacy Electronically, [facility] #[id number], 162, cm, 05/07/20 8:55:00EDT, Height Start Date: 05/07/20 Status: Ordered atorvastatin 40 mg oral tablet 1 tablet = 40 mg, By Mouth, Daily, # 90 tablet, 3 Refills, Maintenance, 07/26/20 17:31:00 EDT, Tablet, [facility] #[id number], 162, cm, 05/07/20 8:55:00 EDT, Height Start Date: 07/26/20 Status: Ordered bacitracin topical 500 u/gm ointment 1 application, Topically, 4 times a day, # 30 Gm, 0 Refills, Maintenance, 05/07/20 10:55:00 EDT, Ointment, [facility] #87662, 1 application Topically 4 times a day,x7 [...] 2 Refills, Maintenance, 08/24/20 13:23:00 EDT, Gel, [facility] #24231, 162, cm, 08/24/20 12:57:00 EDT, Height, 101.4, kg, 08/07/20 16:24:00 EDT, Dry Weight Start Date: 08/24/20 Status: Ordered Flonase 50 mcg/inh nasal spray 1 sprays, Nares, Both, 2 times a day, PRN Congestion, # 16 Gm, 7 Refills, Maintenance, 05/07/20 10:48:00 EDT, [place], [facility] #[id number], 1 sprays Nares, Both 2 times a [...] 02/02/20 16:29:00 EDT, Route to Pharmacy Electronically, [facility] #[id number], 162, cm, 12/22/19 14:37:00 EST, Height Start Date: 02/02/20 Stop Date: 01/27/21 Status: Ordered omeprazole 40 mg oral enteric coated capsule 1 capsule = 40 mg, By Mouth, Daily, before a meal, # 30 capsule, 0 Refills, Maintenance, 08/11/20 13:46:00 EDT, EC Capsule, [facility] #15169, 162, cm, 05/07/20 8:55:00 EDT, Height, 101.4, [...]
--- OUTSIDE RECORDS SUMMARY | 2023-10-28 19:16 | XMS_ITS | Continuity of Care Document ---
Author Name Unknown Organization [facility] Address [address] [place] [address]- Care Team Providers Care Utility Worker [place] Name Role Phone Rogelio NUNEZ, Arya Primary Care Physician [facility]counter [facility] Date(s): 07/08/21 - 08/07/21 [facility] [address] [place] [address]- Allergies, Adverse Reactions, Alerts Substance Reaction Severity [...] tetanus/diphtheria/pertussis, acel(Tdap) 6 04/04/12 Given 1Location History: [facility] 2Admin Note: [facility] [id number] 3Admin Note: Administered at [facility] [place] 4Admin Note: given at [facility] 5Admin Note: VIS 08/20 6Admin Note: [...] 2 Refills, Maintenance, 05/07/20 10:50:00 EDT, Tablet, [facility] #[id number], 162, cm, 05/07/20 8:55:00 EDT, Height Start Date: 05/07/20 Status: Ordered aspirin 81 mg oral delayed release tablet 81 mg, 1, tablet, By Mouth, Daily, # 90 tablet, Refills 7, Tot. Refills 7, Maintenance, 10/21/20 15:17:00 EST, Route to Pharmacy Electronically, [facility] #[id number], 162, cm, 08/24/20 12:57:00 EDT, Height, 101.4, kg, 08/07/20 16:24:00 EDT, Dry... Start Date: 10/21/20 Status: Ordered atorvastatin 40 mg oral tablet 1 tablet = 40 mg, By Mouth, Daily, # 90 tablet, 1 Refills, Maintenance, 08/02/21 9:28:00 EDT, Tablet, [facility] #[id number], 160, cm, 08/02/21 8:58:00 EDT, Height, 101.4, kg, 08/07/20 16:24:00 EDT, Dry Weight Start Date: 08/02/21 Status: Ordered bacitracin topical 500 u/gm ointment 1 application, Topically, 4 times a day, # 30 Gm, 0 Refills, Maintenance, 05/07/20 10:55:00 EDT, Ointment, [facility] #[id number], 1 application Topically 4 times a day,x7 [...] 1 Refills, Maintenance, 03/09/21 14:32:00 EDT, Gel, [facility] #[id number], 160, cm, 01/10/21 14:43:00 EST, Height, 101.4, kg, 08/07/20 16:24:00 EDT, Dry Weight Start Date: 03/09/21 Status: Ordered Flonase 50 mcg/inh nasal spray 1 sprays, Nares, Both, 2 times a day, PRN Congestion, # 16 Gm, 7 Refills, Maintenance, 05/07/20 10:48:00 EDT, [facility] #[id number], 1 sprays Nares, Both 2 times a [...] each, 5 Refills, Maintenance, 01/24/21 11:13:00 EDT, [facility] #[id number], Partial fill upon patient request if the prescription is for a schedule II opioid drug., 1... Start Date: 01/24/21 Status: Ordered losartan 25 mg oral tablet 25 mg, 1, tablet, By Mouth, Daily, # 90 tablet, Refills 3, Tot. Refills 3, Maintenance, 08/02/21 9:29:00 EDT, Route to Pharmacy Electronically, [facility] #[id number], 160, cm, 08/02/21 8:58:00 EDT, Height, 101.4, kg, 08/07/20 16:24:00 EDT, Dry W... Start Date: 08/02/21 Stop Date: 07/28/22 Status: Ordered Mapap Arthritis Pain 650 mg oral tablet, extended release 1 tablet, By Mouth, Every 8 hours, PRN NEEDED FOR MODERATE PAIN, # 100 each, 0 Refills, Maintenance, 08/02/21 9:29:00 EDT, [facility] #[id number], 160, cm, 08/02/21 8:58:00 EDT, Height, 101.4, kg, 08/07/20 16:24:00 EDT, Dry Weight Start Date: 08/02/21 Status: Ordered meloxicam 15 mg oral tablet 1 tablet = 15 mg, By Mouth, Daily, # 14 tablet, 0 Refills, Maintenance, 03/23/21 10:46:00 EDT, Tablet, [facility] #[id number], Partial fill upon patient request if the prescription is for a schedule II opioid drug., 160, cm, 03/23/21 10:12:00 EDT... Start Date: 03/23/21 Stop Date: 04/06/21 Status: Ordered omeprazole 20 mg oral enteric coated capsule 1 capsule = 20 mg, By Mouth, Daily, # 30 capsule, 2 Refills, Maintenance, 08/02/21 9:20:00 EDT, EC Capsule, [facility] #[id number], Partial fill upon patient request if the prescription is for aschedule II opioid drug., 160, cm, 08/02/21 8:58:00... Start Date: 08/02/21 Status: Ordered pair of atrex diabetic shoes pair of atrex diabetic shoes, See Instructions, # 2 each, Refills 0, Tot. Refills 0, Maintenance, Diagnosis codes: E11.9 and L84, 07/27/21 18:23:00 EDT, Compound Start Date: 07/27/21 Status: Ordered Shingrix intramuscular injection = 0.5 mL, Intramuscular, Once, repeat dose in 2 to 6 months, # 2 each, 0 Refills, Soft Stop, 08/02/21 9:40:00 EDT, [facility] #[id number], Partial fill upon patient request if the prescription is for a schedule II opioid drug., 0.5 mL Int... Start Date: 08/02/21 Status: Ordered traZODone 100 mg oral tablet via psychiatry, Refills 0, Maintenance, 08/11/20 13:38:00 EDT Start Date: 08/11/20 Status: Ordered Voltaren 1% topical gel 1 application, Topically, 4 times a day, # 100 Gm, 4 Refills, Maintenance, 03/23/21 10:48:00 EDT, [facility] #[id number], Partial fill upon patient request if the [...] diabetes mellitus(Confirmed) Active Hypertension(Confirmed) Active Obesity(Confirmed) Active BHN/CCA/CLARA-Janelle Antoine [phone]/Health intermediate active care coordination(Confirmed) Active 1followed by Dr. Dalton Box. and therapist. 2inertal and external on 2017 colonoscopy Social History Social History Type Response Smoking Status Former smoker; Other : quit per pt 03/08/18; entered on: 03/08/18 Sex Male
--- OUTSIDE RECORDS SUMMARY | 2023-10-28 19:16 | XMS_ITS | Continuity of Care Document ---
Author Name Unknown Organization [facility] Address [address] [place] [address]- Care Team Providers Care Convict Guard Name Role Phone Arya Mercado MD Primary Care Physician [phone] Encounter [facility] [id number] Date(s): 10/12/22 - 11/11/[address] [address]- Attending Physician: AdmCollette villalba Admitting Physician: Admtr, Ar8 Referring Physician: Admtr, Ar8 Allergies, Adverse Reactions, Alerts Substance Reaction Severity Status Latex Active metFORMIN lightheadedness GI symptoms Active Immunizations Given and Recorded Vaccine Date Status Refusal Reason tetanus/diphtheria/pertussis, acel(Tdap) 09/11/22 Given tetanus/diphtheria/pertussis, acel(Tdap) 1 04/04/12 Given influenza virus vaccine, inactivated 08/08/22 Randy rded [...] inactivated 5 07/31/12 Gi rojelio SARS-CoV-2 mRNA (gzzxqyk-gfmk-hqffk) vax 03/08/22 Recorded zoster vaccine, inactivated 01/31/22 Recorded zoster vaccine, inactivated 08/02/21 Recorded SARS-CoV-2 (COVID-19) mRNA BNT-162b2 vac 10/29/21 Recorded SARS-CoV-2 (COVID-19) mRNA BNT-162b2 vac 02/17/21 Recorded SARS-CoV-2 (COVID-19) mRNA BNT-162b2 vac 01/27/21 Recorded pneumococcal 23-valent vaccine 6 06/05/12 Given 1Admin Note: VIS 11/23 2Location History: [facility] 3Admin Note: [facility] [id number] 4Admin Note: Administered at [facility] in [place] 5Admin Note: given at [facility] 6Admin Note: VIS 08/20 Medications 3 pair [...] tablet, 3 Refills, Maintenance, 11/03/22 16:19:00 EST, [facility] #[id number], Partial fill upon patient request if the prescription is for a schedule II opioid drug., 160, cm... Start Date: 11/03/22 Status: Ordered Allergy (Loratadine) 10 mg oral tablet 1 tablet = 10 mg, By Mouth, Daily, # 30 tablet, 2 Refills, Maintenance, 05/07/20 10:50:00 EDT, Tablet, [facility] #[id number], 162, cm, 05/07/20 8:55:00 EDT, Height Start Date: 05/07/20 Status: Ordered aspirin 81 mg oral delayed release tablet 81 mg, 1, tablet, By Mouth, Daily, # 90 tablet, Refills 7, Tot. Refills 7, Maintenance, 10/21/20 15:17:00 EST, Route to Pharmacy Electronically, [facility] #[id number], 162, cm, 08/24/20 12:57:00 EDT, Height, 101.4, kg, 08/07/20 16:24:00 EDT, Dry... Start Date: 10/21/20 Status: Ordered atorvastatin 40 mg oral tablet 1 tablet = 40 mg, By Mouth, Daily, # 90 tablet, 1 Refills, Maintenance, 07/20/22 14:56:00 EDT, Tablet, [facility] #[id number], 160, cm, 08/02/21 9:33:00 EDT, Height, 101.4, kg, 08/07/20 16:24:00EDT, Dry Weight Start Date: 07/20/22 Status: Ordered bacitracin topical 500 u/gm ointment 1 application, Topically, 4 times a day, # 30 Gm, 0 Refills, Maintenance, 05/07/20 10:55:00 EDT, Ointment, [facility] #[id number], 1 application Topically 4 times a day,x7 [...] 0 Refills, Maintenance, 11/03/22 14:34:00 EST, Capsule, [facility] #02554, Partial fill upon patient request if the prescription is for a schedule II opioid drug., 160,... Start Date: 11/03/22 Stop Date: 11/10/22 Status: Ordered diclofenac 1% topical gel 1 application, Topically, 4 times a day, # 100 Gm, 4 Refills, Maintenance, 11/03/22 14:30:00 EST, Gel, [facility] #[id number], 160, cm, 11/03/22 13:45:00 EST, Height Start Date: 11/03/22 Status: Ordered Flonase 50 mcg/inh nasal spray 1 sprays, Nares, Both, 2 times a day, PRN Congestion, # 16 Gm, 7 Refills, Maintenance, 05/07/20 10:48:00 EDT, [place], [facility] #55044, 1 sprays Nares, Both 2 times a [...] 5 Refills, Maintenance, 01/24/21 11:13:00 EDT, Film, [facility] #[id number], Partial fill upon patient request if the prescription is for a schedule II opioid drug., 1... Start Date: 01/24/21 Status: Ordered losartan 25 mg oral tablet 25 mg, 1, tablet, By Mouth, Daily, # 90 tablet, Refills 1, Tot. Refills 1, Maintenance, 10/23/22 11:41:00 EST, Route to Pharmacy Electronically, [facility] #[id number], 160, cm, 08/24/22 16:58:00 EDT, Height Start Date: 10/23/22 Stop Date: 04/21/23 Status: Ordered omeprazole 20 mg oral enteric coated capsule 1 capsule, By Mouth, Daily, for 90 days, # 90 capsule, 0 Refills, Physician Stop 01/17/23 13:09:00 EST, 10/19/22 13:09:00 EST, [facility] #[id number], 160, cm, 08/24/22 16:58:00 EDT, Height Start [...] Confirmed Active Obesity Confirmed Active BHN/CCA/CLARA-Janelle Antoine [phone]/Health correction active care coordination Confirmed Active Severe obesity (BMI 35.0-39.9) with comorbidity Confirmed Active 1followed by Dr. Dalton Box. and therapist. 2inertal and external on 2017 colonoscopy Social History Social History Type Response Smoking Status Former smoker; Other : quit per pt 03/08/18; entered on: 03/08/18 Sex Male Patient Care team information Care Team Personnel Name: Arya Mercado MD Position: [facility] Resident Member Role: PCP Address: Address: [address] [facility] [place] [address]- Care Team Related Persons Name: RENNY DAILY Address: home [address] [place] [address] Name: EDUARDO DUNBAR Address: home [address] [place] [address]
--- OUTSIDE RECORDS SUMMARY | 2023-10-28 19:16 | XMS_ITS | Continuity of Care Document ---
Author Name Unknown Organization [facility] Address [address] [place] [address]- Care Team Providers Care Fish Hatchery Superintendent Name Role Phone Arya Mercado MD Primary Care Physician [phone] [facility]counter [facility] Date(s): 10/12/21 - 11/11/21 [facility] [address] [place] [address]- Attending Physician: AdmCollette villalba Admitting Physician: Admtr, [...] History: [facility] 2Admin Note: [facility] [id number] 3Admin Note: Administered at [facility] [place] 4Admin Note: given at [facility] 5Admin Note: VIS 08/20 6Admin [...] 2 Refills, Maintenance, 05/07/20 10:50:00 EDT, Tablet, [facility] #[id number], 162, cm, 05/07/20 8:55:00 EDT, Height Start Date: 05/07/20 Status: Ordered aspirin 81 mg oral delayed release tablet 81 mg, 1, tablet, By Mouth, Daily, # 90 tablet, Refills 7, Tot. Refills 7, Maintenance, 10/21/20 15:17:00 EST, Route to Pharmacy Electronically, [facility] #[id number], 162, cm, 08/24/20 12:57:00 EDT, Height, 101.4, kg, 08/07/20 16:24:00 EDT, Dry... Start Date: 10/21/20 Status: Ordered atorvastatin 40 mg oral tablet 1 tablet = 40 mg, By Mouth, Daily, # 90 tablet, 1 Refills, Maintenance, 08/02/21 9:28:00 EDT, Tablet, [facility] #[id number], 160, cm, 08/02/21 8:58:00 EDT, Height, 101.4, kg, 08/07/20 16:24:00 EDT, Dry Weight Start Date: 08/02/21 Status: Ordered bacitracin topical 500 u/gm ointment 1 application, Topically, 4 times a day, # 30 Gm, 0 Refills, Maintenance, 05/07/20 10:55:00 EDT, Ointment, [facility] #[id number], 1 application Topically 4 times a day,x7 [...] 1 Refills, Maintenance, 03/09/21 14:32:00 EDT, Gel, [facility] #[id number], 160, cm, 01/10/21 14:43:00 EST, Height, 101.4, kg, 08/07/20 16:24:00 EDT, Dry Weight Start Date: 03/09/21 Status: Ordered Flonase 50 mcg/inh nasal spray 1 sprays, Nares, Both, 2 times a day, PRN Congestion, # 16 Gm, 7 Refills, Maintenance, 05/07/20 10:48:00 EDT, [place], [facility] #53412, 1 sprays Nares, Both 2 times a [...] each, 5 Refills, Maintenance, 01/24/21 11:13:00 EDT, [facility] #[id number], Partial fill upon patient request if the prescription is for a schedule II opioid drug., 1... Start Date: 01/24/21 Status: Ordered losartan 25 mg oral tablet 25 mg, 1, tablet, By Mouth, Daily, # 90 tablet, Refills 3, Tot. Refills 3, Maintenance, 08/02/21 9:29:00 EDT, Route to Pharmacy Electronically, [facility] #[id number], 160, cm, 08/02/21 8:58:00 EDT, Height, 101.4, kg, 08/07/20 16:24:00 EDT, Dry W... Start Date: 08/02/21 Stop Date: 07/28/22 Status: Ordered Mapap Arthritis Pain 650 mg oral tablet, extended release 1 tablet, By Mouth, Every 8 hours, PRN NEEDED FOR MODERATE PAIN, # 100 each, 0 Refills, Maintenance, 10/31/21 11:25:00 [facility], [facility] #[id number], 160, cm, 08/02/21 9:33:00 EDT, Height, 101.4, kg, 08/07/20 16:24:00 EDT, Dry Weight Start Date: 10/31/21 Status: Ordered meloxicam 15 mg oral tablet 1 tablet = 15 mg, By Mouth, Daily, # 14 tablet, 0 Refills, Maintenance, 03/23/21 10:46:00 EDT, Tablet, [facility] #[id number], Partial fill upon patient request if the prescription is for a schedule II opioid drug., 160, cm, 03/23/21 10:12:00 EDT... Start Date: 03/23/21 Stop Date: 04/06/21 Status: Ordered omeprazole 20 mg oral enteric coated capsule 1 capsule, By Mouth, Daily, # 30 capsule, 2 Refills, 10/31/21 11:25:00 EST, [facility] #[id number], 160, cm, 08/02/21 9:33:00 EDT, Height, 101.4, [...] Refills, Soft Stop, 08/02/21 9:40:00 EDT, [place], [facility] #[id number], Partial fill upon patient request if the prescription is for a schedule II opioid drug., 0.5 mL Int... Start Date: 08/02/21 Status: Ordered traZODone 100 mg oral tablet via psychiatry, Refills 0, Maintenance, 08/11/20 13:38:00 EDT Start Date: 08/11/20 Status: Ordered Voltaren 1% topical gel 1 application, Topically, 4 times a day, # 100 Gm, 4 Refills, Maintenance, 03/23/21 10:48:00 EDT, [facility] #[id number], Partial fill upon patient request if the [...] Active Hypertension(Confirmed) Active Obesity(Confirmed) Active N/CCA/CLARA-Janelle Antoine [phone]/Health correction active care coordination(Confirmed) Active 1followed by Dr. Dalton Box. and therapist. 2inertal and external on 2017 colonoscopy Vital Signs Most recent to oldest [...]
--- OUTSIDE RECORDS SUMMARY | 2023-10-28 19:16 | XMS_ITS | Continuity of Care Document ---
Author Name Unknown Organization [facility] Address [address] [place] [address]- Care Team Providers Care Car Checker Name Role Phone Opal NUNEZ, Emily Powell Primary Care Physician Encounter [facility] Date(s): 11/15/20 - 11/15/[address] [address] Discharge Disposition: A-D/C Home Attending Physician: Bao Miranda MD Admitting Physician: Bao Miranda MD Referring Physician: Bao Miranda MD Allergies, Adverse Reactions, Alerts Substance Reaction [...] tetanus/diphtheria/pertussis, acel(Tdap) 6 04/04/12 Given 1Location History: [facility] 2Admin Note: [facility] [id number] 3Admin Note: Administered at [facility] 4Admin Note: given at [facility] 5Admin Note: VIS 08/20 6Admin Note: VIS / Medications 3 pair plastazote diabetic shoe inserts 3 pair plastazote diabetic shoe inserts, See Instructions, # 6 each, Refills 11, Tot. Refills 11, Maintenance, Diagnosis codes E11.9, L84, 09/17/20 11:02:00 EST, Compound Start Date: 09/17/20 Status: Ordered Allergy (Loratadine) 10 mg oral tablet 1 tablet = 10 mg, By Mouth, Daily, # 30 tablet, 2 Refills, Maintenance, 05/07/20 10:50:00 EDT, Tablet, [facility] #[id number], 162, cm, 05/07/20 8:55:00 EDT, Height Start Date: 05/07/20 Status: Ordered aspirin 81 mg oral delayed release tablet 81 mg, 1, tablet, By Mouth, Daily, # 90 tablet, Refills 7, Tot. Refills 7, Maintenance, 10/21/20 15:17:00 EST, Route to Pharmacy Electronically, [facility] #[id number], 162, cm, 08/24/20 12:57:00 EDT, Height, 101.4, kg, 08/07/20 16:24:00 EDT, Dry... Start Date: 10/21/20 Status: Ordered atorvastatin 40 mg oral tablet 1 tablet = 40 mg, By Mouth, Daily, # 90 tablet, 3 Refills, Maintenance, 07/26/20 17:31:00 EDT, Tablet, [facility] #[id number], 162, cm, 05/07/20 8:55:00 EDT, Height Start Date: 07/26/20 Status: Ordered bacitracin topical 500 u/gm ointment 1 application, Topically, 4 times a day, # 30 Gm, 0 Refills, Maintenance, 05/07/20 10:55:00 EDT, Ointment, [facility] #35093, 1 application Topically 4 times a day,x7 [...] 2 Refills, Maintenance, 08/24/20 13:23:00 EDT, Gel, [facility] #[id number], 162, cm, 08/24/20 12:57:00 EDT, Height, 101.4, kg, 08/07/20 16:24:00 EDT, Dry Weight Start Date: 08/24/20 Status: Ordered Flonase 50 mcg/inh nasal spray 1 sprays, Nares, Both, 2 times a day, PRN Congestion, # 16 Gm, 7 Refills, Maintenance, 05/07/20 10:48:00 EDT, [place], [facility] #68626, 1 sprays Nares, Both 2 times a [...] 10/21/20 15:16:00 EST, Route to Pharmacy Electronically, [facility] #[id number], 162, cm, 08/24/20 12:57:00 EDT, Height, 101.4, kg, 08/07/20 16:24:00 EDT, Dry... Start Date: 10/21/20 Stop Date: 10/11/22 Status: Ordered omeprazole 20 mg oral enteric coated capsule 1 capsule = 20 mg, By Mouth, Daily, # 30 capsule, 5 Refills, Maintenance, 10/21/20 15:18:00 EST, ECCapsule, [facility] #[id number], Partial fill upon patient request if the [...] therapist. 2inertal and external on 2016 colonoscopy Procedures Procedure Date Related Diagnosis Body Site Status Esophagogastroduodenoscopy and biopsy 11/15/20 Completed Vital Signs Most recent to oldest [Reference Range]: 1 2 3 Height 160 cm (11/15/20 7:29 AM) Weight 91.2 kg (11/15/20 7:29 AM) Oxygen Saturation [94-100 %] 97 % (11/15/20 8:17 AM) 96 % (11/15/20 8:04 AM) 97 % (11/15/20 7:29 AM) Pulse Rate [55-90 bpm] 66 bpm (11/15/20 7:29 AM) Body Mass Index [18.5-24.99] 35.63 *>HHI* (11/15/20 7:29 AM) Blood Pressure [90-138/55-84 mm Hg] 114/69mm Hg (11/15/20 8:17 AM) 124/76mm Hg (11/15/20 8:04 AM) 126/85mm Hg (11/15/20 7:29 AM) Respiratory Rate [16-30 br/min] 18 br/min (11/15/20 8:17 AM) 18 br/min (11/15/20 8:04 AM) 14 br/min *L* (11/15/20 7:29 AM) Temperature [96.8-100.4 DegF] 98.3 DegF (11/15/20 7:29 AM) Mode of Delivery (Oxygen) Room air (11/15/20 8:04 AM) Room air (11/15/20 7:29 AM) Blood pressure sites Arm, left (11/15/20 8:17 AM) Arm, left (11/15/20 8:04 AM) Arm, left (11/15/20 7:29 AM) Temperature Route Temporal (11/15/20 7:29 AM) Weight Obtained Via Patient/family state d (11/15/20 7:29 AM) Social History Social History Type Response Smoking Status Former smoker; Other : quit per pt 03/08/18; entered on: 03/08/18 Sex Male
--- OUTSIDE RECORDS SUMMARY | 2023-10-28 19:16 | XMS_ITS | Continuity of Care Document ---
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 [id number] 3Admin Note: Administered at [facility] [place] 4Admin Note: given at [facility] 5Admin Note: VIS 08/20 6Admin [...] 2 Refills, Maintenance, 05/07/20 10:50:00 EDT, Tablet, [facility] #[id number], 162, cm, 05/07/20 8:55:00 EDT, Height Start Date: 05/07/20 Status: Ordered aspirin 81 mg oral delayed release tablet 81 mg, 1, tablet, By Mouth, Daily, # 90 tablet, Refills 5, Tot. Refills 5, Maintenance, 05/07/20 10:49:00 EDT, Route to Pharmacy Electronically, [facility] #[id number], 162, cm, 05/07/20 8:55:00EDT, Height Start Date: 05/07/20 Status: Ordered atorvastatin 40 mg oral tablet 1 tablet = 40 mg, By Mouth, Daily, # 90 tablet, 3 Refills, Maintenance, 07/26/20 17:31:00 EDT, Tablet, [facility] #08802, 162, cm, 05/07/20 8:55:00 EDT, Height Start Date: 07/26/20 Status: Ordered bacitracin topical 500 u/gm ointment 1 application, Topically, 4 times a day, # 30 Gm, 0 Refills, Maintenance, 05/07/20 10:55:00 EDT, Ointment, [facility] #[id number], 1 application Topically 4 times a day,x7 [...] 2 Refills, Maintenance, 08/24/20 13:23:00 EDT, Gel, [facility] #96065, 162, cm, 08/24/20 12:57:00 EDT, Height, 101.4, kg, 08/07/20 16:24:00 EDT, Dry Weight Start Date: 08/24/20 Status: Ordered Flonase 50 mcg/inh nasal spray 1 sprays, Nares, Both, 2 times a day, PRN Congestion, # 16 Gm, 7 Refills, Maintenance, 05/07/20 10:48:00 EDT, [place], [facility] #82627, 1 sprays Nares, Both 2 times a [...] 02/02/20 16:29:00 EDT, Route to Pharmacy Electronically, [facility] #[id number], 162, cm, 12/22/19 14:37:00 EST, Height Start Date: 02/02/20 Stop Date: 01/27/21 Status: Ordered omeprazole 40 mg oral enteric coated capsule 1 capsule = 40 mg, By Mouth, Daily, before a meal, # 30 capsule, 2 Refills, Maintenance, 09/21/20 7:24:00 EST, EC Capsule, [facility] #62821, 162, cm, 08/24/20 12:57:00 EDT, Height, 101.4, kg, 08/07/20 16:24:00 EDT, Dry Weight Start Date: 09/21/20 Stop Date: 12/20/20 Status: Ordered pair of atrex diabetic shoes pair of atrex diabetic shoes, See Instructions, # 2 each, Refills 0, Tot. Refills 0, Maintenance, Diagnosis codes: E11.9 and L84, 09/17/20 11:02:00 EST, Compound Start Date: 09/17/20 Status: Ordered Protonix 40 mg oral delayed [...]
--- OUTSIDE RECORDS SUMMARY | 2023-10-28 19:16 | XMS_ITS | Continuity of Care Document ---
Author Name Unknown Organization [facility] Address [address] [place] [address]- Care Team Providers Care Snubber Name Role Phone Rogelio NUNEZ, Arya Tompkins Primary Care Physician Encounter [facility] Date(s): 08/28/22 - 11/11/[address] [address] Attending Physician: Not on Staff, Attending MD Allergies, Adverse Reactions, Alerts Substance Reaction [...] inactivated 5 07/31/12 Gi rojelio SARS-CoV-2 mRNA (zdcllbf-[id number]) vax 03/08/22 Recorded zoster vaccine, inactivated 01/31/22 Recorded zoster vaccine, inactivated 08/02/21 Recorded SARS-CoV-2 (COVID-19) mRNA BNT-162b2 vac 10/29/21 Recorded SARS-CoV-2 (COVID-19) mRNA BNT-162b2 vac 02/17/21 Recorded SARS-CoV-2 (COVID-19) mRNA BNT-162b2 vac 01/27/21 Recorded pneumococcal 23-valent vaccine 6 06/05/12 Given 1Admin Note: VIS 11/23 2Location History: [facility] 3Admin Note: [facility] [id number] 4Admin Note: Administered at [facility] [place] 5Admin Note: given at [facility] 6Admin Note: VIS 08/20 Medications 3 [...] tablet, 3 Refills, Maintenance, 11/03/22 16:19:00 EST, [facility] #[id number], Partial fill upon patient request if the prescription is for a schedule II opioid drug., 160, cm... Start Date: 11/03/22 Status: Ordered Allergy (Loratadine) 10 mg oral tablet 1 tablet = 10 mg, By Mouth, Daily, # 30 tablet, 2 Refills, Maintenance, 05/07/20 10:50:00 EDT, Tablet, [facility] #[id number], 162, cm, 05/07/20 8:55:00 EDT, Height Start Date: 05/07/20 Status: Ordered aspirin 81 mg oral delayed release tablet 81 mg, 1, tablet, By Mouth, Daily, # 90 tablet, Refills 7, Tot. Refills 7, Maintenance, 10/21/20 15:17:00 EST, Route to Pharmacy Electronically, [facility] #[id number], 162, cm, 08/24/20 12:57:00 EDT, Height, 101.4, kg, 08/07/20 16:24:00 EDT, Dry... Start Date: 10/21/20 Status: Ordered atorvastatin 40 mg oral tablet 1 tablet = 40 mg, By Mouth, Daily, # 90 tablet, 1 Refills, Maintenance, 07/20/22 14:56:00 EDT, Tablet, [facility] #[id number], 160, cm, 08/02/21 9:33:00 EDT, Height, 101.4, kg, 08/07/20 16:24:00EDT, Dry Weight Start Date: 07/20/22 Status: Ordered bacitracin topical 500 u/gm ointment 1 application, Topically, 4 times a day, # 30 Gm, 0 Refills, Maintenance, 05/07/20 10:55:00 EDT, Ointment, [facility] #17206, 1 application Topically 4 times a day,x7 [...] 0 Refills, Maintenance, 11/03/22 14:34:00 EST, Capsule, [facility] #[id number], Partial fill upon patient request if the prescription is for a schedule II opioid drug., 160,... Start Date: 11/03/22 Stop Date: 11/10/22 Status: Ordered diclofenac 1% topical gel 1 application, Topically, 4 times a day, # 100 Gm, 4 Refills, Maintenance, 11/03/22 14:30:00 EST, Gel, [facility] #[id number], 160, cm, 11/03/22 13:45:00 EST, Height Start Date: 11/03/22 Status: Ordered Flonase 50 mcg/inh nasal spray 1 sprays, Nares, Both, 2 times a day, PRN Congestion, # 16 Gm, 7 Refills, Maintenance, 05/07/20 10:48:00 EDT, [place], [facility] #50908, 1 sprays Nares, Both 2 times a [...] 5 Refills, Maintenance, 01/24/21 11:13:00 EDT, Film, [facility] #[id number], Partial fill upon patient request if the prescription is for a schedule II opioid drug., 1... Start Date: 01/24/21 Status: Ordered losartan 25 mg oral tablet 25 mg, 1, tablet, By Mouth, Daily, # 90 tablet, Refills 1, Tot. Refills 1, Maintenance, 10/23/22 11:41:00 EST, Route to Pharmacy Electronically, [facility] #[id number], 160, cm, 08/24/22 16:58:00 EDT, Height Start Date: 10/23/22 Stop Date: 04/21/23 Status: Ordered omeprazole 20 mg oral enteric coated capsule 1 capsule, By Mouth, Daily, for 90 days, # 90 capsule, 0 Refills, Physician Stop 01/17/23 13:09:00 EST, 10/19/22 13:09:00 EST, [facility] #[id number], 160, cm, 08/24/22 16:58:00 EDT, Height Start [...] Confirmed Active Obesity Confirmed Active BHN/CCA/CLARA-Janelle Antoine [phone]/Health halfway active care coordination Confirmed Active Severe obesity [...] CENTER Resident Member Role: PCP Address: Address: [address] [facility] [place] [address]- Care Team Related Persons Name: RENNY DAILY Address: [address] [place] [address] Name: EDUARDO DUNBAR Address: home [address] [place] [address]
--- OUTSIDE RECORDS SUMMARY | 2023-10-28 19:16 | XMS_ITS | Continuity of Care Document ---
Author Name Unknown Organization [facility] Address [address] [place] [address]- Care Team Providers Care Debarker Operator Name Role Phone Rogelio NUNEZ, Arya Primary Care Physician [phone] [facility]): 05[facility]21 - 06/02/21 [facility] [address] [place] [id number] Allergies, Adverse Reactions, Alerts Substance [...] tetanus/diphtheria/pertussis, acel(Tdap) 6 04/04/12 Given 1Location History: [facility] 2Admin Note: [facility] [id number] 3Admin Note: Administered at [facility] 4Admin Note: given at [facility] 5Admin Note: VIS 08/20 6Admin Note: [...] 2 Refills, Maintenance, 05/07/20 10:50:00 EDT, Tablet, [facility] #[id number], 162, cm, 05/07/20 8:55:00 EDT, Height Start Date: 05/07/20 Status: Ordered aspirin 81 mg oral delayed release tablet 81 mg, 1, tablet, By Mouth, Daily, # 90 tablet, Refills 7, Tot. Refills 7, Maintenance, 10/21/20 15:17:00 EST, Route to Pharmacy Electronically, [facility] #[id number], 162, cm, 08/24/20 12:57:00 EDT, Height, 101.4, kg, 08/07/20 16:24:00 EDT, Dry... Start Date: 10/21/20 Status: Ordered atorvastatin 40 mg oral tablet 1 tablet = 40 mg, By Mouth, Daily, # 90 tablet, 1 Refills, Maintenance, 03/09/21 14:32:00 EDT, Tablet, [facility] #[id number], 160, cm, 01/10/21 14:43:00 EST, Height, 101.4, kg, 08/07/20 16:24:00 EDT, Dry Weight Start Date: 03/09/21 Status: Ordered bacitracin topical 500 u/gm ointment 1 application, Topically, 4 times a day, # 30 Gm, 0 Refills, Maintenance, 05/07/20 10:55:00 EDT, Ointment, [facility] #[id number], 1 application Topically 4 times a day,x7 [...] 1 Refills, Maintenance, 03/09/21 14:32:00 EDT, Gel, [facility] #[id number], 160, cm, 01/10/21 14:43:00 EST, Height, 101.4, kg, 08/07/20 16:24:00 EDT, Dry Weight Start Date: 03/09/21 Status: Ordered Flonase 50 mcg/inh nasal spray 1 sprays, Nares, Both, 2 times a day, PRN Congestion, # 16 Gm, 7 Refills, Maintenance, 05/07/20 10:48:00 EDT, [place], [facility] #[id number], 1 sprays Nares, Both 2 times a [...] 5 Refills, Maintenance, 01/24/21 11:13:00 EDT, Film, [facility] #[id number], Partial fill upon patient request if the prescription is for a schedule II opioid drug., 1... Start Date: 01/24/21 Status: Ordered losartan 25 mg oral tablet 25 mg, 1, tablet, By Mouth, Daily, # 90 tablet, Refills 7, Tot. Refills 7, Maintenance, 10/21/20 15:16:00 EST, Route to Pharmacy Electronically, [facility] #[id number], 162, cm, 08/24/20 12:57:00 EDT, Height, 101.4, kg, 08/07/20 16:24:00 EDT, Dry... Start Date: 10/21/20 Stop Date: 10/11/22 Status: Ordered meloxicam 15 mg oral tablet 1 tablet = 15 mg, By Mouth, Daily, # 14 tablet, 0 Refills, Maintenance, 03/23/21 10:46:00 EDT, Tablet, [facility] #[id number], Partial fill upon patient request if the prescription is for a schedule II opioid drug., 160, cm, 03/23/21 10:12:00 EDT... Start Date: 03/23/21 Stop Date: 04/06/21 Status: Ordered omeprazole 20 mg oral enteric coated capsule 1 capsule = 20 mg, By Mouth, Daily, # 30 capsule, 2 Refills, Maintenance, 02/22/21 11:07:00 EDT, ECCapsule, [facility] #[id number], Partial fill upon patient request if the [...] Gm, 4 Refills, Maintenance, 03/23/21 10:48:00 EDT, [facility] #[id number], Partial fill upon patient request if the [...] Active Hypertension(Confirmed) Active Obesity(Confirmed) Active BHN/VAHID/Omid Antoine [phone]/Health intermediate active care coordination(Confirmed) Active 1followed by Dr. Dalton Box. and therapist. 2inertal and external on 2017 colonoscopy Social History Social History Type Response Smoking Status Former smoker; Other : quit per pt 03/08/18; entered on: 03/08/18 Sex Male
--- OUTSIDE RECORDS SUMMARY | 2023-10-28 19:16 | XMS_ITS | Continuity of Care Document ---
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 Name Role Phone Opal NUNEZ, Emily Powell Primary Care Physician [facility] 08[facility]20 - 09/05/20 [facility] [address] [place] [id number] Allergies, Adverse Reactions, Alerts Substance Reaction [...] tetanus/diphtheria/pertussis, acel(Tdap) 6 04/04/12 Given 1Location History: [facility] 2Admin Note: [facility] [id number] 3Admin Note: Administered at [facility] [place] 4Admin Note: given at [facility] 5Admin Note: VIS 08/20 6Admin Note: VIS 11/23 Medications Allergy (Loratadine) 10 mg oral tablet 1 tablet = 10 mg, By Mouth, Daily, # 30 tablet, 2 Refills, Maintenance, 05/07/20 10:50:00 EDT, Tablet, [facility] #[id number], 162, cm, 05/07/20 8:55:00 EDT, Height Start Date: 05/07/20 Status: Ordered aspirin 81 mg oral delayed release tablet 81 mg, 1, tablet, By Mouth, Daily, # 90 tablet, Refills 5, Tot. Refills 5, Maintenance, 05/07/20 10:49:00 EDT, Route to Pharmacy Electronically, [facility] #[id number], 162, cm, 05/07/20 8:55:00EDT, Height Start Date: 05/07/20 Status: Ordered atorvastatin 40 mg oral tablet 1 tablet = 40 mg, By Mouth, Daily, # 90 tablet, 3 Refills, Maintenance, 07/26/20 17:31:00 EDT, Tablet, [facility] #48126, 162, cm, 05/07/20 8:55:00 EDT, Height Start Date: 07/26/20 Status: Ordered bacitracin topical 500 u/gm ointment 1 application, Topically, 4 times a day, # 30 Gm, 0 Refills, Maintenance, 05/07/20 10:55:00 EDT, Ointment, [facility] #[id number], 1 application Topically 4 times a day,x7 [...] 2 Refills, Maintenance, 08/24/20 13:23:00 EDT, Gel, [facility] #95799, 162, cm, 08/24/20 12:57:00 EDT, Height, 101.4, kg, 08/07/20 16:24:00 EDT, Dry Weight Start Date: 08/24/20 Status: Ordered Flonase 50 mcg/inh nasal spray 1 sprays, Nares, Both, 2 times a day, PRN Congestion, # 16 Gm, 7 Refills, Maintenance, 05/07/20 10:48:00 EDT, [place], [facility] #07660, 1 sprays Nares, Both 2 times a [...] 02/02/20 16:29:00 EDT, Route to Pharmacy Electronically, [facility] #[id number], 162, cm, 12/22/19 14:37:00 EST, Height Start Date: 02/02/20 Stop Date: 01/27/21 Status: Ordered omeprazole 40 mg oral enteric coated capsule 1 capsule = 40 mg, By Mouth, Daily, before a meal, # 30 capsule, 0 Refills, Maintenance, 08/11/20 13:46:00 EDT, EC Capsule, [facility] #19090, 162, cm, 05/07/20 8:55:00 EDT, Height, 101.4, [...]
--- OUTSIDE RECORDS SUMMARY | 2023-10-28 19:16 | XMS_ITS | Continuity of Care Document ---
Author Name Unknown Organization [facility] Address [address] [place] [address]- Care Team Providers Care Forging Die Sinker Name Role Phone Opal NUNEZ, Emily Powell Primary Care Physician [facility]): 01[facility]10[facility]21 - 02/09/21 [facility] [address] [place] [id number]- Attending Physician: Collette Castillo Admitting Physician: AdmCollette [...] tetanus/diphtheria/pertussis, acel(Tdap) 6 04/04/12 Given 1Location History: [facility] 2Admin Note: [facility] [id number] 3Admin Note: Administered at [facility] [place] 4Admin Note: given at [facility] 5Admin Note: VIS 08/20 6Admin [...] 2 Refills, Maintenance, 05/07/20 10:50:00 EDT, Tablet, [facility] #55338, 162, cm, 05/07/20 8:55:00 EDT, Height Start Date: 05/07/20 Status: Ordered aspirin 81 mg oral delayed release tablet 81 mg, 1, tablet, By Mouth, Daily, # 90 tablet, Refills 7, Tot. Refills 7, Maintenance, 10/21/20 15:17:00 EST, Route to Pharmacy Electronically, [facility] #[id number], 162, cm, 08/24/20 12:57:00 EDT, Height, 101.4, kg, 08/07/20 16:24:00 EDT, Dry... Start Date: 10/21/20 Status: Ordered atorvastatin 40 mg oral tablet 1 tablet = 40 mg, By Mouth, Daily, # 90 tablet, 3 Refills, Maintenance, 07/26/20 17:31:00 EDT, Tablet, [facility] #[id number], 162, cm, 05/07/20 8:55:00 EDT, Height Start Date: 07/26/20 Status: Ordered bacitracin topical 500 u/gm ointment 1 application, Topically, 4 times a day, # 30 Gm, 0 Refills, Maintenance, 05/07/20 10:55:00 EDT, Ointment, [facility] #[id number], 1 application Topically 4 times a day,x7 [...] 2 Refills, Maintenance, 11/23/20 18:40:00 EST, Gel, [facility] #[id number], 160, cm, 11/15/20 7:29:00 EST, Height, 101.4, kg, 08/07/20 16:24:00EDT, Dry Weight Start Date: 11/23/20 Status: Ordered Flonase 50 mcg/inh nasal spray 1 sprays, Nares, Both, 2 times a day, PRN Congestion, # 16 Gm, 7 Refills, Maintenance, 05/07/20 10:48:00 EDT, [place], [facility] #37584, 1 sprays Nares, Both 2 times a [...] 5 Refills, Maintenance, 01/24/21 11:13:00 EDT, Film, [facility] #[id number], Partial fill upon patient request if the prescription is for a schedule II opioid drug., 1... Start Date: 01/24/21 Status: Ordered losartan 25 mg oral tablet 25 mg, 1, tablet, By Mouth, Daily, # 90 tablet, Refills 7, Tot. Refills 7, Maintenance, 10/21/20 15:16:00 EST, Route to Pharmacy Electronically, [facility] #[id number], 162, cm, 08/24/20 12:57:00 EDT, Height, 101.4, kg, 08/07/20 16:24:00 EDT, Dry... Start Date: 10/21/20 Stop Date: 10/11/22 Status: Ordered omeprazole 20 mg oral enteric coated capsule 1 capsule = 20 mg, By Mouth, Daily, # 30 capsule, 5 Refills, Maintenance, 10/21/20 15:18:00 EST, ECCapsule, [facility] #[id number], Partial fill upon patient request if the [...] 7:44:00 EDT, 01/20/21 7:44:00 EST, ER Tablet, [facility] #[id number], Partialfill upon patient request if the prescription [...] Active Hypertension(Confirmed) Active Obesity(Confirmed) Active BHN/CCA/CLARA-Janelle Antoine [phone]/Health half-way active care coordination(Confirmed) Active 1followed by Dr. [...]
--- OUTSIDE RECORDS SUMMARY | 2023-10-28 19:16 | XMS_ITS | Continuity of Care Document ---
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 Name Role Phone Opal NUNEZ, Emily Powell Primary Care Physician [facility]s): 01/19/21 - 02/18/21 [facility] [address] [place] [id number] Allergies, Adverse Reactions, Alerts Substance [...] tetanus/diphtheria/pertussis, acel(Tdap) 6 04/04/12 Given 1Location History: [facility] 2Admin Note: [facility] [id number] 3Admin Note: Administered at [facility] [place] 4Admin Note: given at [facility] 5Admin Note: VIS 08/20 6Admin Note: VIS [...] 2 Refills, Maintenance, 05/07/20 10:50:00 EDT, Tablet, [facility] #[id number], 162, cm, 05/07/20 8:55:00 EDT, Height Start Date: 05/07/20 Status: Ordered aspirin 81 mg oral delayed release tablet 81 mg, 1, tablet, By Mouth, Daily, # 90 tablet, Refills 7, Tot. Refills 7, Maintenance, 10/21/20 15:17:00 EST, Route to Pharmacy Electronically, [facility] #[id number], 162, cm, 08/24/20 12:57:00 EDT, Height, 101.4, kg, 08/07/20 16:24:00 EDT, Dry... Start Date: 10/21/20 Status: Ordered atorvastatin 40 mg oral tablet 1 tablet = 40 mg, By Mouth, Daily, # 90 tablet, 3 Refills, Maintenance, 07/26/20 17:31:00 EDT, Tablet, [facility] #85331, 162, cm, 05/07/20 8:55:00 EDT, Height Start Date: 07/26/20 Status: Ordered bacitracin topical 500 u/gm ointment 1 application, Topically, 4 times a day, # 30 Gm, 0 Refills, Maintenance, 05/07/20 10:55:00 EDT, Ointment, [facility] #[id number], 1 application Topically 4 times a day,x7 [...] 2 Refills, Maintenance, 11/23/20 18:40:00 EST, Gel, [facility] #[id number], 160, cm, 11/15/20 7:29:00 EST, Height, 101.4, kg, 08/07/20 16:24:00EDT, Dry Weight Start Date: 11/23/20 Status: Ordered Flonase 50 mcg/inh nasal spray 1 sprays, Nares, Both, 2 times a day, PRN Congestion, # 16 Gm, 7 Refills, Maintenance, 05/07/20 10:48:00 EDT, [place], [facility] #18745, 1 sprays Nares, Both 2 times a [...] 5 Refills, Maintenance, 01/24/21 11:13:00 EDT, Film, [facility] #[id number], Partial fill upon patient request if the prescription is for a schedule II opioid drug., 1... Start Date: 01/24/21 Status: Ordered losartan 25 mg oral tablet 25 mg, 1, tablet, By Mouth, Daily, # 90 tablet, Refills 7, Tot. Refills 7, Maintenance, 10/21/20 15:16:00 EST, Route to Pharmacy Electronically, [facility] #[id number], 162, cm, 08/24/20 12:57:00 EDT, Height, 101.4, kg, 08/07/20 16:24:00 EDT, Dry... Start Date: 10/21/20 Stop Date: 10/11/22 Status: Ordered omeprazole 20 mg oral enteric coated capsule 1 capsule = 20 mg, By Mouth, Daily, # 30 capsule, 5 Refills, Maintenance, 10/21/20 15:18:00 EST, ECCapsule, [facility] #[id number], Partial fill upon patient request if the [...] 7:44:00 EDT, 01/20/21 7:44:00 EST, ER Tablet, [facility] #[id number], Partialfill upon patient request if the prescription [...] Active Hypertension(Confirmed) Active Obesity(Confirmed) Active BHN/CCA/Omid Antoine [phone]/Health intermediate active care coordination(Confirmed) Active 1followed by Dr. Dalton Box. and therapist. 2inertal and external on 2017 colonoscopy Social History Social History Type Response Smoking Status Former smoker; Other : quit per pt 03/08/18; entered on: 03/08/18 Sex Male
--- OUTSIDE RECORDS SUMMARY | 2023-10-28 19:16 | XMS_ITS | Continuity of Care Document ---
Author Name Unknown Organization [facility] Address [address] [place] [address]- Care Team Providers Care Art Educator Name Role Phone Rogelio NUNEZ, [facility] Primary [facility] Physician Encounter [facility] Date(s): 01/03/23 - 02/21/23 [facility] [address] [place] [id number] Attending Physician: Not on Staff, Attending MD Allergies, Adverse Reactions, Alerts Substance Reaction Severity Status Latex Active metFORMIN lightheadedness GI symptoms Active Immunizations Given and Recorded Vaccine Date Status Refusal Reason tetanus/diphtheria/pertussis, acel(Tdap) 09/11/22 Given tetanus/diphtheria/pertussis, acel(Tdap) 1 04/04/12 Given [id number] 12y+ bivalent booster vax 08/24/22 Recorded influenza [...] inactivated 5 07/31/12 Gi rojelio SARS-CoV-2 mRNA ([id number]) vax 03/08/22 Recorded zoster vaccine, inactivated 01/31/22 Recorded zoster vaccine, inactivated 08/02/21 Recorded SARS-CoV-2 (COVID-19) mRNA BNT-162b2 vac 10/29/21 Recorded SARS-CoV-2 (COVID-19) mRNA BNT-162b2 vac 02/17/21 Recorded SARS-CoV-2 (COVID-19) mRNA BNT-162b2 vac 01/27/21 Recorded pneumococcal 23-valent vaccine 6 06/05/12 Given 1Admin Note: VIS 11/23 2Location History: [facility] 3Admin Note: [facility] [id number] 4Admin Note: Administered at [facility] 5Admin Note: given at [facility] 6Admin Note: VIS 08/20 Medications 3 pair [...] tablet, 5 Refills, Maintenance, 02/06/23 18:11:00 EDT, [facility] #74501, Partial fill upon patient request if the prescription is for a schedule II opioid drug., 160, cm,... Start Date: 02/06/23 Status: Ordered Allergy (Loratadine) 10 mg oral tablet 1 tablet = 10 mg, By Mouth, Daily, # 30 tablet, 2 Refills, Maintenance, 05/07/20 10:50:00 EDT, Tablet, [facility] #[id number], 162, cm, 05/07/20 8:55:00 EDT, Height Start Date: 05/07/20 Status: Ordered aspirin 81 mg oral delayed release tablet 81 mg, 1, tablet, By Mouth, Daily, # 90 tablet, Refills 7, Tot. Refills 7, Maintenance, 10/21/20 15:17:00 EST, Route to Pharmacy Electronically, [facility] #[id number], 162, cm, 08/24/20 12:57:00 EDT, Height, 101.4, kg, 08/07/20 16:24:00 EDT, Dry... Start Date: 10/21/20 Status: Ordered atorvastatin 40 mg oral tablet 1 tablet = 40 mg, By Mouth, Daily, # 90 tablet, 1 Refills, Maintenance, 01/05/23 9:28:00 EST, Tablet, [facility] #32408, 160, cm, 01/04/23 8:32:00 EST, Height Start Date: 01/05/23 Status: Ordered bacitracin topical 500 u/gm ointment 1 application, Topically, 4 times a day, # 30 Gm, 0 Refills, Maintenance, 05/07/20 10:55:00 EDT, Ointment, [facility] #53528, 1 application Topically 4 times a day,x7 [...] 0 Refills, Maintenance, 11/03/22 14:34:00 EST, Capsule, [facility] #12134, Partial fill upon patient request if the prescription is for a schedule II opioid drug., 160,... Start Date: 11/03/22 Stop Date: 11/10/22 Status: Ordered diclofenac 1% topical gel 1 application, Topically, 4 times a day, # 100 Gm, 4 Refills, Maintenance, 11/03/22 14:30:00 EST, Gel, [facility] #45505, 160, cm, 11/03/22 13:45:00 EST, Height Start Date: 11/03/22 Status: Ordered Flonase 50 mcg/inh nasal spray 1 sprays, Nares, Both, 2 times a day, PRN Congestion, # 16 Gm, 7 Refills, Maintenance, 05/07/20 10:48:00 EDT, [place], [facility] #[id number], 1 sprays Nares, Both 2 times a day,PRN:Congestion, 162, cm, 05/07/20 8:55:00 EDT, Height Start Date: 05/07/20 Status: Ordered FLUoxetine 20 mg oral capsule via psychiatry, Refills 0, Maintenance, 08/11/20 13:38:00 EDT Start Date: 08/11/20 Status: Ordered lidocaine 5% topical film 1 patch, Topically, Daily, PRN Pain , Mild, remove after 12 hours, # 13 each, 5 Refills, Maintenance, 01/24/21 11:13:00 EDT, Film, [facility] #[id number], Partial fill upon patient request if the prescription is for a schedule II opioid drug., 1... Start Date: 01/24/21 Status: Ordered losartan 25 mg oral tablet 1 tablet, By Mouth, Daily, # 90 tablet, 1 Refills, Maintenance, 02/13/23 8:27:00 EDT, [facility] #[id number], 160, cm, 01/09/23 10:35:00 EST, Height Start [...] EST, Height Start Date: 01/04/23 Status: Ordered sildenafil 25 mg oral tablet See Instructions, Take one tablet by mouth, 1 hour before sexual activity, # 30 each, 0 Refills, Maintenance, 02/15/23 18:19:00 EDT, [facility] #[id number], Partial fill upon patient request if the prescription is for a schedule II opioid drug.,... Start Date: 02/15/23 Status: Ordered traZODone 100 mg oral tablet [...] diverticulosis Confirmed Active Sigmoid diverticulosis Confirmed Active Erectile dysfunction Confirmed Active Hemorrhoid 2 Confirmed Active Hematospermia Confirmed Active Hyperlipidemia due to type 2 diabetes mellitus Confirmed Active Hypertension Confirmed Active Obesity Confirmed Active Osteoarthritis Confirmed Active N/CCA/Omid Antoine [phone]/Health fpc active care coordination Confirmed Active Severe obesity (BMI 35.0-39.9) with comorbidity Confirmed Active 1followed by Dr. Dalton Box. and therapist. 2inertal and external on 2017 colonoscopy Social History Social History Type Response Smoking Status Former smoker; Other : quit per pt 03/08/18; entered on: 03/08/18 Sex Male Patient Care team information Care Team Personnel Name: Arya Mercado MD Position: S Resident Member Role: PCP Address: Address: [address] [place] [address] [place] [address]- Care Team Related Persons Name: SAMANTHA DAILY Name: EDUARDO DUNBAR Address: home [address] [place] [address]
--- OUTSIDE RECORDS SUMMARY | 2023-10-28 19:16 | XMS_ITS | Continuity of Care Document ---
Author Name Unknown Organization [facility] Address [address] [place] [address]- Care Team Providers Care Grinder Set Up Operator Jig Name Role Phone Arya Mercado MD Primary Care Physician [facility] Date[facility]s): 09/[facility]/22 - 10/11/22 [facility] [address], [place] [address] Attending Physician: Collette Castillo Admitting Physician: AdmtrCollette Referring Physician: Admtr, Collette Allergies, Adverse Reactions, Alerts Substance Reaction Severity [...] inactivated 5 07/31/12 Gi rojelio SARS-CoV-2 mRNA ([id number]) vax 03/08/22 Recorded zoster vaccine, inactivated 01/31/22 Recorded zoster vaccine, inactivated 08/02/21 Recorded SARS-CoV-2 (COVID-19) mRNA BNT-162b2 vac 10/29/21 Recorded SARS-CoV-2 (COVID-19) mRNA BNT-162b2 vac 02/17/21 Recorded SARS-CoV-2 (COVID-19) mRNA BNT-162b2 vac 01/27/21 Recorded pneumococcal 23-valent vaccine 6 06/05/12 Given 1Admin Note: VIS 11/23 2Location History: [facility] 3Admin Note: [facility] [id number] 4Admin Note: Administered at [facility] [place] 5Admin Note: given at [facility] [...] Moderate, # 100 tablet, 3 Refills, Maintenance, 08/24/22 17:32:00 EDT, [facility] #[id number], Partial fill upon patient request if the prescription is for a schedule II opioid drug., 160, cm... Start Date: 08/24/22 Status: Ordered Allergy (Loratadine) 10 mg oral tablet 1 tablet = 10 mg, By Mouth, Daily, # 30 tablet, 2 Refills, Maintenance, 05/07/20 10:50:00 EDT, Tablet, [facility] #[id number], 162, cm, 05/07/20 8:55:00 EDT, Height Start Date: 05/07/20 Status: Ordered aspirin 81 mg oral delayed release tablet 81 mg, 1, tablet, By Mouth, Daily, # 90 tablet, Refills 7, Tot. Refills 7, Maintenance, 10/21/20 15:17:00 EST, Route to Pharmacy Electronically, [facility] #[id number], 162, cm, 08/24/20 12:57:00 EDT, Height, 101.4, kg, 08/07/20 16:24:00 EDT, Dry... Start Date: 10/21/20 Status: Ordered atorvastatin 40 mg oral tablet 1 tablet = 40 mg, By Mouth, Daily, # 90 tablet, 1 Refills, Maintenance, 07/20/22 14:56:00 EDT, Tablet, [facility] #[id number], 160, cm, 08/02/21 9:33:00 EDT, Height, 101.4, kg, 08/07/20 16:24:00EDT, Dry Weight Start Date: 07/20/22 Status: Ordered bacitracin topical 500 u/gm ointment 1 application, Topically, 4 times a day, # 30 Gm, 0 Refills, Maintenance, 05/07/20 10:55:00 EDT, Ointment, [facility] #[id number], 1 application Topically 4 times a day,x7 [...] 1 Refills, Maintenance, 03/09/21 14:32:00 EDT, Gel, [facility] #[id number], 160, cm, 01/10/21 14:43:00 EST, Height, 101.4, kg, 08/07/20 16:24:00 EDT, Dry Weight Start Date: 03/09/21 Status: Ordered Flonase 50 mcg/inh nasal spray 1 sprays, Nares, Both, 2 times a day, PRN Congestion, # 16 Gm, 7 Refills, Maintenance, 05/07/20 10:48:00 EDT, [place], [facility] #[id number], 1 sprays Nares, Both 2 times a [...] 5 Refills, Maintenance, 01/24/21 11:13:00 EDT, Film, [facility] #[id number], Partial fill upon patient request if the prescription is for a schedule II opioid drug., 1... Start Date: 01/24/21 Status: Ordered losartan 25 mg oral tablet 25 mg, 1, tablet, By Mouth, Daily, # 90 tablet, Refills 3, Tot. Refills 3, Maintenance, 08/02/21 9:29:00 EDT, Route to Pharmacy Electronically, [facility] #[id number], 160, cm, 08/02/21 8:58:00 EDT, Height, 101.4, kg, 08/07/20 16:24:00 EDT, Dry W... Start Date: 08/02/21 Stop Date: 07/28/22 Status: Ordered meloxicam 15 mg oral tablet 1 tablet = 15 mg, By Mouth, Daily, # 14 tablet, 0 Refills, Maintenance, 03/23/21 10:46:00 EDT, Tablet, [facility] #[id number], Partial fill upon patient request if the prescription is for a schedule II opioid drug., 160, cm, 03/23/21 10:12:00 EDT... Start Date: 03/23/21 Stop Date: 04/06/21 Status: Ordered omeprazole 20 mg oral enteric coated capsule 1 capsule, By Mouth, Daily, for 90 days, # 90 capsule, 0 Refills, Physician Stop 10/24/22 10:31:00 EST, 07/26/22 10:31:00 EDT, [facility] #[id number], 160, cm, 08/02/21 9:33:00 EDT, Height, 101.4, kg, 08/07/20 16:24:00 EDT, Dry Weight Start Date: 07/26/22 Stop Date: 10/24/22 Status: Ordered pair of atrex diabetic shoes pair of atrex diabetic shoes, See Instructions, # 2 each, Refills 0, Tot. Refills 0, Maintenance, Diagnosis codes: E11.9 and L84, 08/25/22 17:10:00 EDT, Compound Start Date: 08/25/22 Status: Ordered Shingrix intramuscular injection = 0.5 mL, Intramuscular, Once, repeat dose in 2 to 6 months, # 2 each, 0 Refills, Soft Stop, 08/02/21 9:40:00 EDT, Powder, [facility] #[id number], Partial fill upon patient request if the prescription is for a schedule II opioid drug., 0.5 mL Int... Start Date: 08/02/21 Status: Ordered traZODone 100 mg oral tablet via psychiatry, Refills 0, Maintenance, 08/11/20 13:38:00 EDT Start Date: 08/11/20 Status: Ordered Voltaren 1% topical gel 1 application, Topically, 4 times a day, # 100 Gm, 4 Refills, Maintenance, 03/23/21 10:48:00 EDT, Gel, [facility] #[id number], Partial fill upon patient request if the prescription is for a schedule II opioid drug., 1 application Topically 4 time... Start Date: 03/23/21 Status: Ordered zolpidem 10 mg oral tablet via psychiatry, 0 Refills, Maintenance, 08/11/20 13:38:00 EDT Start Date: 08/11/20 Status: Ordered Problem List Condition Confirmation Course Effective Dates Status H ealth Status Informant Depression 1 Confirmed Active Diabetes Mellitus Confirmed 2010 Active Colon, diverticulosis Confirmed Active Sigmoid diverticulosis Confirmed Active Hemorrhoid 2 Confirmed Active Hyperlipidemia due to type 2 diabetes mellitus Confirmed Active Hypertension Confirmed Active Obese class I Confirmed Active Obesity Confirmed Active BHN/CCA/CP-Janelle Antoine [phone]/Health snf active care coordination Confirmed Active 1followed by Dr. Dalton Box. [...] Personnel Name: Rogelio NUNEZ, Arya Tompkins Position: [facility] Resident Member Role: PCP Address: Address: [address] [place] [address] [place] [address]- Care Team Related Persons Name: RENNY DAILY Address: home [address] [place] [address] Name: EDUARDO DUNBAR Address: home [address] [place] [address]
--- OUTSIDE RECORDS SUMMARY | 2023-10-28 19:16 | XMS_ITS | Continuity of Care Document ---
Author Name Unknown Organization [facility] Address [address] [place] [address]- Care Team Providers Care Marketing Development Manager Name Role Phone Opal NUNEZ, Emily Powell Primary Care Physician Encounter [facility] Date(s): 12/15/20 - 02/10/[address] [address] [[email or web address] Discharge Disposition: A-D/C Home Attending Physician: Elham Delgado MD Admitting Physician: Elham Delgado MD Referring Physician: Negra Pantoja DO Allergies, Adverse Reactions, Alerts Substance Reaction Severity [...] tetanus/diphtheria/pertussis, acel(Tdap) 6 04/04/12 Given 1[facility] 2Admin Note: [facility] [id number] 3Admin Note: Administered at [facility] [place] 4Admin Note: given at [facility] 5Admin Note: VIS 08/20 6Admin Note: [...] 2 Refills, Maintenance, 05/07/20 10:50:00 EDT, Tablet, [facility] #[id number], 162, cm, 05/07/20 8:55:00 EDT, Height Start Date: 05/07/20 Status: Ordered aspirin 81 mg oral delayed release tablet 81 mg, 1, tablet, By Mouth, Daily, # 90 tablet, Refills 7, Tot. Refills 7, Maintenance, 10/21/20 15:17:00 EST, Route to Pharmacy Electronically, [facility] #[id number], 162, cm, 08/24/20 12:57:00 EDT, Height, 101.4, kg, 08/07/20 16:24:00 EDT, Dry... Start Date: 10/21/20 Status: Ordered atorvastatin 40 mg oral tablet 1 tablet = 40 mg, By Mouth, Daily, # 90 tablet, 3 Refills, Maintenance, 07/26/20 17:31:00 EDT, Tablet, [facility] #[id number], 162, cm, 05/07/20 8:55:00 EDT, Height Start Date: 07/26/20 Status: Ordered bacitracin topical 500 u/gm ointment 1 application, Topically, 4 times a day, # 30 Gm, 0 Refills, Maintenance, 05/07/20 10:55:00 EDT, Ointment, [facility] #[id number], 1 application Topically 4 times a day,x7 [...] 2 Refills, Maintenance, 11/23/20 18:40:00 EST, Gel, [facility] #[id number], 160, cm, 11/15/20 7:29:00 EST, Height, 101.4, kg, 08/07/20 16:24:00EDT, Dry Weight Start Date: 11/23/20 Status: Ordered Flonase 50 mcg/inh nasal spray 1 sprays, Nares, Both, 2 times a day, PRN Congestion, # 16 Gm, 7 Refills, Maintenance, 05/07/20 10:48:00 EDT, [place], [facility] #[id number], 1 sprays Nares, Both 2 times a [...] 5 Refills, Maintenance, 01/24/21 11:13:00 EDT, [place], [facility] #[id number], Partial fill upon patient request if the prescription is for a schedule II opioid drug., 1... Start Date: 01/24/21 Status: Ordered losartan 25 mg oral tablet 25 mg, 1, tablet, By Mouth, Daily, # 90 tablet, Refills 7, Tot. Refills 7, Maintenance, 10/21/20 15:16:00 EST, Route to Pharmacy Electronically, [facility] #[id number], 162, cm, 08/24/20 12:57:00 EDT, Height, 101.4, kg, 08/07/20 16:24:00 EDT, Dry... Start Date: 10/21/20 Stop Date: 10/11/22 Status: Ordered omeprazole 20 mg oral enteric coated capsule 1 capsule = 20 mg, By Mouth, Daily, # 30 capsule, 5 Refills, Maintenance, 10/21/20 15:18:00 EST, ECCapsule, [facility] #[id number], Partial fill upon patient request if the [...] 7:44:00 EDT, 01/20/21 7:44:00 EST, ER Tablet, [facility] #[id number], Partialfill upon patient request if the prescription [...] Active Hypertension(Confirmed) Active Obesity(Confirmed) Active BHN/CCA/CLARA-Janelle Antoine [phone]/Health skilled nursing active care coordination(Confirmed) Active 1followed by Dr. Dalton Box. and therapist. 2inertal and external on 2017 colonoscopy Social History Social History Type Response Smoking Status Former smoker; Other : quit per pt 03/08/18; entered on: 03/08/18 Sex Male
--- OUTSIDE RECORDS SUMMARY | 2023-10-28 19:16 | XMS_ITS | Continuity of Care Document ---
Author Name Unknown Organization [facility] Address [address] [place] [address]- Care Team Providers Care Capacity Analyst Name Role Phone Rogelio NUNEZ, Arya Tompkins Primary Care Physician [phone] [facility]counter [facility] Date(s): 01/08/23 - 02/07/23 [facility] [address] [place] [id number] Allergies, Adverse Reactions, Alerts Substance Reaction Severity Status Latex Active metFORMIN lightheadedness GI symptoms Active Immunizations Given and Recorded Vaccine Date Status Refusal Reason tetanus/diphtheria/pertussis, acel(Tdap) 09/11/22 Given tetanus/diphtheria/pertussis, acel(Tdap) 1 04/04/12 Given [id number] 12y+ bivalent booster vax 08/24/22 Recorded influenza [...] inactivated 5 07/31/12 Gi rojelio SARS-CoV-2 mRNA ([id number]) vax 03/08/22 Recorded zoster vaccine, inactivated 01/31/22 Recorded zoster vaccine, inactivated 08/02/21 Recorded SARS-CoV-2 (COVID-19) mRNA BNT-162b2 vac 10/29/21 Recorded SARS-CoV-2 (COVID-19) mRNA BNT-162b2 vac 02/17/21 Recorded SARS-CoV-2 (COVID-19) mRNA BNT-162b2 vac 01/27/21 Recorded pneumococcal 23-valent vaccine 6 06/05/12 Given 1Admin Note: VIS 11/23 2Location History: [facility] 3Admin Note: [facility] [id number] 4Admin Note: Administered at [facility] [place] 5Admin Note: given at [facility] 6Admin Note: VIS 08/20 Medications 3 [...] tablet, 5 Refills, Maintenance, 02/06/23 18:11:00 EDT, [facility] #[id number], Partial fill upon patient request if the prescription is for a schedule II opioid drug., 160, cm,... Start Date: 02/06/23 Status: Ordered Allergy (Loratadine) 10 mg oral tablet 1 tablet = 10 mg, By Mouth, Daily, # 30 tablet, 2 Refills, Maintenance, 05/07/20 10:50:00 EDT, Tablet, [facility] #[id number], 162, cm, 05/07/20 8:55:00 EDT, Height Start Date: 05/07/20 Status: Ordered aspirin 81 mg oral delayed release tablet 81 mg, 1, tablet, By Mouth, Daily, # 90 tablet, Refills 7, Tot. Refills 7, Maintenance, 10/21/20 15:17:00 EST, Route to Pharmacy Electronically, [facility] #[id number], 162, cm, 08/24/20 12:57:00 EDT, Height, 101.4, kg, 08/07/20 16:24:00 EDT, Dry... Start Date: 10/21/20 Status: Ordered atorvastatin 40 mg oral tablet 1 tablet = 40 mg, By Mouth, Daily, # 90 tablet, 1 Refills, Maintenance, 01/05/23 9:28:00 EST, Tablet, [facility] #[id number], 160, cm, 01/04/23 8:32:00 EST, Height Start Date: 01/05/23 Status: Ordered bacitracin topical 500 u/gm ointment 1 application, Topically, 4 times a day, # 30 Gm, 0 Refills, Maintenance, 05/07/20 10:55:00 EDT, Ointment, [facility] #[id number], 1 application Topically 4 times a day,x7 [...] 0 Refills, Maintenance, 11/03/22 14:34:00 EST, Capsule, [facility] #[id number], Partial fill upon patient request if the prescription is for a schedule II opioid drug., 160,... Start Date: 11/03/22 Stop Date: 11/10/22 Status: Ordered diclofenac 1% topical gel 1 application, Topically, 4 times a day, # 100 Gm, 4 Refills, Maintenance, 11/03/22 14:30:00 EST, Gel, [facility] #54790, 160, cm, 11/03/22 13:45:00 EST, Height Start Date: 11/03/22 Status: Ordered Flonase 50 mcg/inh nasal spray 1 sprays, Nares, Both, 2 times a day, PRN Congestion, # 16 Gm, 7 Refills, Maintenance, 05/07/20 10:48:00 EDT, [place], [facility] #07928, 1 sprays Nares, Both 2 times a day,PRN:Congestion, 162, cm, 05/07/20 8:55:00 EDT, Height Start Date: 05/07/20 Status: Ordered FLUoxetine 20 mg oral capsule via psychiatry, Refills 0, Maintenance, 08/11/20 13:38:00 EDT Start Date: 08/11/20 Status: Ordered lidocaine 5% topical film 1 patch, Topically, Daily, PRN Pain , Mild, remove after 12 hours, # 13 each, 5 Refills, Maintenance, 01/24/21 11:13:00 EDT, [place], [facility] #[id number], Partial fill upon patient request if the prescription is for a schedule II opioid drug., 1... Start Date: 01/24/21 Status: Ordered losartan 25 mg oral tablet 25 mg, 1, tablet, By Mouth, Daily, # 90 tablet, Refills 1, Tot. Refills 1, Maintenance, 10/23/22 11:41:00 EST, Route to Pharmacy Electronically, [facility] #[id number], 160, cm, 08/24/22 16:58:00 EDT, Height Start Date: 10/23/22 Stop Date: 04/21/23 Status: Ordered One Touch Delica Lancets See [...] Active Obesity Confirmed Active Osteoarthritis Confirmed Active BHN/CCA/CLARA-Janelle Antoine [phone]/Health assisted active care coordination Confirmed Active Severe obesity (BMI 35.0-39.9) with comorbidity Confirmed Active 1followed by Dr. Dalton Box. and therapist. 2inertal and external on 2017 colonoscopy Social History Social History Type Response Smoking Status Former smoker; Other : quit per pt 03/08/18; entered on: 03/08/18 Sex Male Patient Care team information Care Team Personnel Name: Arya Mercado MD Position: [facility] Resident Member Role: PCP Address: Address: [address] [place] [address] [place] [address]- Care Team Related Persons Name: SAMANTHA DAILY Name: EDUARDO DUNBAR Address: home [address] [place] [address]
--- OUTSIDE RECORDS SUMMARY | 2023-10-28 19:16 | XMS_ITS | Continuity of Care Document ---
Author Name Unknown Organization [facility] Address [address] [place] [address]- Care Team Providers Care Bottle Caser Name Role Phone Arya Mercado MD Primary Care Physician [facility] Date(s): 05/24/22 - 06/23/22 [facility] [address] [place] [address]- Attending Physician: AdmCollette villalba Admitting Physician: Admtr, [...] acel(Tdap) 6 04/04/12 Given 1Location History: [facility] 2Admin Note: [facility] [id number] 3Admin Note: Administered at [facility] in [place] 4Admin Note: given at [facility] 5Admin Note: VIS 08/20 6Admin Note: VIS [...] 2 Refills, Maintenance, 05/07/20 10:50:00 EDT, Tablet, [facility] #[id number], 162, cm, 05/07/20 8:55:00 EDT, Height Start Date: 05/07/20 Status: Ordered aspirin 81 mg oral delayed release tablet 81 mg, 1, tablet, By Mouth, Daily, # 90 tablet, Refills 7, Tot. Refills 7, Maintenance, 10/21/20 15:17:00 EST, Route to Pharmacy Electronically, [facility] #[id number], 162, cm, 08/24/20 12:57:00 EDT, Height, 101.4, kg, 08/07/20 16:24:00 EDT, Dry... Start Date: 10/21/20 Status: Ordered atorvastatin 40 mg oral tablet 1 tablet = 40 mg, By Mouth, Daily, # 90 tablet, 1 Refills, Maintenance, 12/21/21 14:03:00 EST, Tablet, [facility] #[id number], 160, cm, 08/02/21 9:33:00 EDT, Height, 101.4, kg, 08/07/20 16:24:00EDT, Dry Weight Start Date: 12/21/21 Status: Ordered bacitracin topical 500 u/gm ointment 1 application, Topically, 4 times a day, # 30 Gm, 0 Refills, Maintenance, 05/07/20 10:55:00 EDT, Ointment, [facility] #[id number], 1 application Topically 4 times a day,x7 [...] 1 Refills, Maintenance, 03/09/21 14:32:00 EDT, Gel, [facility] #[id number], 160, cm, 01/10/21 14:43:00 EST, Height, 101.4, kg, 08/07/20 16:24:00 EDT, Dry Weight Start Date: 03/09/21 Status: Ordered Flonase 50 mcg/inh nasal spray 1 sprays, Nares, Both, 2 times a day, PRN Congestion, # 16 Gm, 7 Refills, Maintenance, 05/07/20 10:48:00 EDT, [place], [facility] #[id number], 1 sprays Nares, Both 2 times a [...] each, 5 Refills, Maintenance, 01/24/21 11:13:00 EDT, [facility] #[id number], Partial fill upon patient request if the prescription is for a schedule II opioid drug., 1... Start Date: 01/24/21 Status: Ordered losartan 25 mg oral tablet 25 mg, 1, tablet, By Mouth, Daily, # 90 tablet, Refills 3, Tot. Refills 3, Maintenance, 08/02/21 9:29:00 EDT, Route to Pharmacy Electronically, [facility] #[id number], 160, cm, 08/02/21 8:58:00 EDT, Height, 101.4, kg, 08/07/20 16:24:00 EDT, Dry W... Start Date: 08/02/21 Stop Date: 07/28/22 Status: Ordered Mapap Arthritis Pain 650 mg oral tablet, extended release 1 tablet, By Mouth, Every 8 hours, PRN NEEDED FOR MODERATE PAIN, # 100 each, 0 Refills, Maintenance, 10/31/21 11:25:00 EST, [facility] #88119, 160, cm, 08/02/21 9:33:00 EDT, Height, 101.4, kg, 08/07/20 16:24:00 EDT, Dry Weight Start Date: 10/31/21 Status: Ordered meloxicam 15 mg oral tablet 1 tablet = 15 mg, By Mouth, Daily, # 14 tablet, 0 Refills, Maintenance, 03/23/21 10:46:00 EDT, Tablet, [facility] #[id number], Partial fill upon patient request if the prescription is for a schedule II opioid drug., 160, cm, 03/23/21 10:12:00 EDT... Start Date: 03/23/21 Stop Date: 04/06/21 Status: Ordered omeprazole 20 mg oral enteric coated capsule 1 capsule, By Mouth, Daily, for 90 days, # 90 capsule, 0 Refills, Physician Stop 07/26/22 10:31:00 EDT, 04/27/22 10:31:00 EDT, [facility] #[id number], 160, cm, 08/02/21 9:33:00 EDT, Height, 101.4, kg, 08/07/20 16:24:00 EDT, Dry Weight Start Date: 04/27/22 Stop Date: 07/26/22 Status: Ordered pair of atrex diabetic shoes pair of atrex diabetic shoes, See Instructions, # 2 each, Refills 0, Tot. Refills 0, Maintenance, Diagnosis codes: E11.9 and L84, 07/27/21 18:23:00 EDT, Compound Start Date: 07/27/21 Status: Ordered Shingrix intramuscular injection = 0.5 mL, Intramuscular, Once, repeat dose in 2 to 6 months, # 2 each, 0 Refills, Soft Stop, 08/02/21 9:40:00 EDT, [facility] #[id number], Partial fill upon patient request if the prescription is for a schedule II opioid drug., 0.5 mL Int... Start Date: 08/02/21 Status: Ordered traZODone 100 mg oral tablet via psychiatry, Refills 0, Maintenance, 08/11/20 13:38:00 EDT Start Date: 08/11/20 Status: Ordered Voltaren 1% topical gel 1 application, Topically, 4 times a day, # 100 Gm, 4 Refills, Maintenance, 03/23/21 10:48:00 EDT, [facility] #[id number], Partial fill upon patient request if the [...] diabetes mellitus(Confirmed) Active Hypertension(Confirmed) Active Obesity(Confirmed) Active N/VAHID/Omid Antoine [phone]/Health senior care active care coordination(Confirmed) Active 1followed by Dr. [...]
--- OUTSIDE RECORDS SUMMARY | 2023-10-28 19:16 | XMS_ITS | Continuity of Care Document ---
Author Name Unknown Organization [facility] Address [address] [place] [address]- Care Team Providers Care Civil Engineering Project Designer Name Role Phone Rogelio NUNEZ, Arya Primary Care Physician Encounter [facility] Date(s): 05/03/21 - 06/02/21 [facility] [address] [place], [place] [address] Attending Physician: AdmtrCollette Admitting Physician: Admtr, Collette Referring Physician: Admtr, Ar8 Allergies, Adverse Reactions, [...] History: [facility] 2Admin Note: [facility] [id number] 3Admin Note: Administered at [facility] in [place] 4Admin Note: given at [facility] 5Admin Note: VIS 08/20 6Admin Note: [...] 2 Refills, Maintenance, 05/07/20 10:50:00 EDT, Tablet, [facility] #[id number], 162, cm, 05/07/20 8:55:00 EDT, Height Start Date: 05/07/20 Status: Ordered aspirin 81 mg oral delayed release tablet 81 mg, 1, tablet, By Mouth, Daily, # 90 tablet, Refills 7, Tot. Refills 7, Maintenance, 10/21/20 15:17:00 EST, Route to Pharmacy Electronically, [facility] #[id number], 162, cm, 08/24/20 12:57:00 EDT, Height, 101.4, kg, 08/07/20 16:24:00 EDT, Dry... Start Date: 10/21/20 Status: Ordered atorvastatin 40 mg oral tablet 1 tablet = 40 mg, By Mouth, Daily, # 90 tablet, 1 Refills, Maintenance, 03/09/21 14:32:00 EDT, Tablet, [facility] #[id number], 160, cm, 01/10/21 14:43:00 EST, Height, 101.4, kg, 08/07/20 16:24:00 EDT, Dry Weight Start Date: 03/09/21 Status: Ordered bacitracin topical 500 u/gm ointment 1 application, Topically, 4 times a day, # 30 Gm, 0 Refills, Maintenance, 05/07/20 10:55:00 EDT, Ointment, [facility] #[id number], 1 application Topically 4 times a day,x7 [...] 1 Refills, Maintenance, 03/09/21 14:32:00 EDT, Gel, [facility] #06870, 160, cm, 01/10/21 14:43:00 EST, Height, 101.4, kg, 08/07/20 16:24:00 EDT, Dry Weight Start Date: 03/09/21 Status: Ordered Flonase 50 mcg/inh nasal spray 1 sprays, Nares, Both, 2 times a day, PRN Congestion, # 16 Gm, 7 Refills, Maintenance, 05/07/20 10:48:00 EDT, [place], [facility] #03458, 1 sprays Nares, Both 2 times a [...] 5 Refills, Maintenance, 01/24/21 11:13:00 EDT, [place], [facility] #[id number], Partial fill upon patient request if the prescription is for a schedule II opioid drug., 1... Start Date: 01/24/21 Status: Ordered losartan 25 mg oral tablet 25 mg, 1, tablet, By Mouth, Daily, # 90 tablet, Refills 7, Tot. Refills 7, Maintenance, 10/21/20 15:16:00 EST, Route to Pharmacy Electronically, [facility] #[id number], 162, cm, 08/24/20 12:57:00 EDT, Height, 101.4, kg, 08/07/20 16:24:00 EDT, Dry... Start Date: 10/21/20 Stop Date: 10/11/22 Status: Ordered meloxicam 15 mg oral tablet 1 tablet = 15 mg, By Mouth, Daily, # 14 tablet, 0 Refills, Maintenance, 03/23/21 10:46:00 EDT, Tablet, [facility] #[id number], Partial fill upon patient request if the prescription is for a schedule II opioid drug., 160, cm, 03/23/21 10:12:00 EDT... Start Date: 03/23/21 Stop Date: 04/06/21 Status: Ordered omeprazole 20 mg oral enteric coated capsule 1 capsule = 20 mg, By Mouth, Daily, # 30 capsule, 2 Refills, Maintenance, 02/22/21 11:07:00 EDT, ECCaps[facility], [facility] #[id number], Partial fill upon patient request if the [...] 4 Refills, Maintenance, 03/23/21 10:48:00 EDT, Gel, [facility] #26691, Partial fill upon patient request if the [...] Active Hypertension(Confirmed) Active Obesity(Confirmed) Active BHN/VAHID/Omid Antoine [phone]/Health prison active care coordination(Confirmed) Active 1followed by Dr. Dalton Box. and therapist. 2inertal and external on 2017 colonoscopy Social History Social History Type Response Smoking Status Former smoker; Other : quit per pt 03/08/18; entered on: 03/08/18 Sex Male
--- OUTSIDE RECORDS SUMMARY | 2023-10-28 19:16 | XMS_ITS | Continuity of Care Document ---
Author Name Unknown Organization [facility] Address [address] [place] [address]- Care Team Providers Care Mri Tech Name Role Phone Opal NUNEZ, Emily Powell Primary Care Physician [facility]counter [facility] Date(s): 12/02/20 - 01/01/21 [facility] [address] [place] [id number] Allergies, Adverse Reactions, Alerts [...] tetanus/diphtheria/pertussis, acel(Tdap) 6 04/04/12 Given 1Location History: [facility] 2Admin Note: [facility] [id number] 3Admin Note: Administered at [facility] in [place] 4Admin Note: given at [facility] 5Admin Note: VIS 08/20 6Admin Note: [...] 2 Refills, Maintenance, 05/07/20 10:50:00 EDT, Tablet, [facility] #[id number], 162, cm, 05/07/20 8:55:00 EDT, Height Start Date: 05/07/20 Status: Ordered aspirin 81 mg oral delayed release tablet 81 mg, 1, tablet, By Mouth, Daily, # 90 tablet, Refills 7, Tot. Refills 7, Maintenance, 10/21/20 15:17:00 EST, Route to Pharmacy Electronically, [facility] #[id number], 162, cm, 08/24/20 12:57:00 EDT, Height, 101.4, kg, 08/07/20 16:24:00 EDT, Dry... Start Date: 10/21/20 Status: Ordered atorvastatin 40 mg oral tablet 1 tablet = 40 mg, By Mouth, Daily, # 90 tablet, 3 Refills, Maintenance, 07/26/20 17:31:00 EDT, Tablet, [facility] #[id number], 162, cm, 05/07/20 8:55:00 EDT, Height Start Date: 07/26/20 Status: Ordered bacitracin topical 500 u/gm ointment 1 application, Topically, 4 times a day, # 30 Gm, 0 Refills, Maintenance, 05/07/20 10:55:00 EDT, Ointment, [facility] #[id number], 1 application Topically 4 times a day,x7 [...] 2 Refills, Maintenance, 11/23/20 18:40:00 EST, Gel, [facility] #[id number], 160, cm, 11/15/20 7:29:00 EST, Height, 101.4, kg, 08/07/20 16:24:00EDT, Dry Weight Start Date: 11/23/20 Status: Ordered Flonase 50 mcg/inh nasal spray 1 sprays, Nares, Both, 2 times a day, PRN Congestion, # 16 Gm, 7 Refills, Maintenance, 05/07/20 10:48:00 EDT, [place], [facility] #[id number], 1 sprays Nares, Both 2 times a [...] remove after 12 hours, # 13 each, 0 Refills, Maintenance, 11/25/20 16:43:00 EST, Film, [facility] #[id number], Partial fill upon patient request if the prescription is for a schedule II opioid drug., 1... Start Date: 11/25/20 Status: Ordered losartan 25 mg oral tablet 25 mg, 1, tablet, By Mouth, Daily, # 90 tablet, Refills 7, Tot. Refills 7, Maintenance, 10/21/20 15:16:00 EST, Route to Pharmacy Electronically, [facility] #[id number], 162, cm, 08/24/20 12:57:00 EDT, Height, 101.4, kg, 08/07/20 16:24:00 EDT, Dry... Start Date: 10/21/20 Stop Date: 10/11/22 Status: Ordered omeprazole 20 mg oral enteric coated capsule 1 capsule = 20 mg, By Mouth, Daily, # 30 capsule, 5 Refills, Maintenance, 10/21/20 15:18:00 EST, [place], [facility] #[id number], Partial fill upon patient request if the [...] Active Hypertension(Confirmed) Active Obesity(Confirmed) Active BHN/CCA/CLARA-Janelle Antoine [phone]/[facility] living active care coordination(Confirmed) Active 1followed by Dr. Dalton Box. and therapist. 2inertal and external on 2017 colonoscopy Social History Social History Type Response Smoking Status Former smoker; Other : quit per pt 03/08/18; entered on: 03/08/18 Sex Male
--- OUTSIDE RECORDS SUMMARY | 2023-10-28 19:16 | XMS_ITS | Continuity of Care Document ---
Author Name Unknown Organization [facility] Address [address] [place] [address]- Care Team Providers Care Senior Maintenance Machinist Name Role Phone Rogelio NUNEZ, Arya Ruizradha Primary Care Physician [phone] Encounter [facility] [place] Date(s): 11/09/22 - 12/31/22 [facility] [address] [place], [place] [address] Attending Physician: Arash Rivera MD Admitting Physician: Arash Rivera MD Allergies, Adverse Reactions, Alerts Substance Reaction Severity Status Latex Active metFORMIN lightheadedness GI symptoms Active Immunizations Given and Recorded Vaccine Date Status Refusal Reason tetanus/diphtheria/pertussis, acel(Tdap) 09/11/22 Given tetanus/diphtheria/pertussis, acel(Tdap) 1 04/04/12 Given [id number] 12y+ bivalent booster vax 08/24/22 Recorded influenza [...] inactivated 5 07/31/12 Gi rojelio SARS-CoV-2 mRNA ([id number]) vax 03/08/22 Recorded zoster vaccine, inactivated 01/31/22 Recorded zoster vaccine, inactivated 08/02/21 Recorded SARS-CoV-2 (COVID-19) mRNA BNT-162b2 vac 12/18/21 Recorded SARS-CoV-2 (COVID-19) mRNA BNT-162b2 vac 02/17/21 Recorded SARS-CoV-2 (COVID-19) mRNA BNT-162b2 vac 01/27/21 Recorded pneumococcal 23-valent vaccine 6 06/05/12 Given 1Admin Note: VIS 11/23 2Location History: [facility] 3Admin Note: [facility] [id number] 4Admin Note: Administered at [facility] in [place] 5Admin Note: given at [facility] 6Admin Note: VIS 08/20 Medications 3 [...] tablet, 3 Refills, Maintenance, 11/03/22 16:19:00 EST, [facility] #[id number], Partial fill upon patient request if the prescription is for a schedule II opioid drug., 160, cm... Start Date: 11/03/22 Status: Ordered Allergy (Loratadine) 10 mg oral tablet 1 tablet = 10 mg, By Mouth, Daily, # 30 tablet, 2 Refills, Maintenance, 05/07/20 10:50:00 EDT, Tablet, [facility] #[id number], 162, cm, 05/07/20 8:55:00 EDT, Height Start Date: 05/07/20 Status: Ordered aspirin 81 mg oral delayed release tablet 81 mg, 1, tablet, By Mouth, Daily, # 90 tablet, Refills 7, Tot. Refills 7, Maintenance, 10/21/20 15:17:00 EST, Route to Pharmacy Electronically, [facility] #[id number], 162, cm, 08/24/20 12:57:00 EDT, Height, 101.4, kg, 08/07/20 16:24:00 EDT, Dry... Start Date: 10/21/20 Status: Ordered atorvastatin 40 mg oral tablet 1 tablet = 40 mg, By Mouth, Daily, # 90 tablet, 1 Refills, Maintenance, 07/20/22 14:56:00 EDT, Tablet, [facility] #[id number], 160, cm, 08/02/21 9:33:00 EDT, Height, 101.4, kg, 08/07/20 16:24:00EDT, Dry Weight Start Date: 07/20/22 Status: Ordered bacitracin topical 500 u/gm ointment 1 application, Topically, 4 times a day, # 30 Gm, 0 Refills, Maintenance, 05/07/20 10:55:00 EDT, Ointment, [facility] #[id number], 1 application Topically 4 times a day,x7 [...] capsule, 0 Refills, Maintenance, 11/03/22 14:34:00 EST, [facility] #[id number], Partial fill upon patient request if the prescription is for a schedule II opioid drug., 160,... Start Date: 11/03/22 Stop Date: 11/10/22 Status: Ordered diclofenac 1% topical gel 1 application, Topically, 4 times a day, # 100 Gm, 4 Refills, Maintenance, 11/03/22 14:30:00 EST, Gel, [facility] #79017, 160, cm, 11/03/22 13:45:00 EST, Height Start Date: 11/03/22 Status: Ordered Flonase 50 mcg/inh nasal spray 1 sprays, Nares, Both, 2 times a day, PRN Congestion, # 16 Gm, 7 Refills, Maintenance, 05/07/20 10:48:00 EDT, [place], [facility] #[id number], 1 sprays Nares, Both 2 times a [...] 5 Refills, Maintenance, 01/24/21 11:13:00 EDT, Film, [facility] #[id number], Partial fill upon patient request if the prescription is for a schedule II opioid drug., 1... Start Date: 01/24/21 Status: Ordered losartan 25 mg oral tablet 25 mg, 1, tablet, By Mouth, Daily, # 90 tablet, Refills 1, Tot. Refills 1, Maintenance, 10/23/22 11:41:00 EST, Route to Pharmacy Electronically, [facility] #[id number], 160, cm, 08/24/22 16:58:00 EDT, Height Start Date: 10/23/22 Stop Date: 04/21/23 Status: Ordered omeprazole 20 mg oral enteric coated capsule 1 capsule, By Mouth, Daily, for 90 days, # 90 capsule, 0 Refills, Physician Stop 01/17/23 13:09:00 EST, 10/19/22 13:09:00 EST, [facility] #[id number], 160, cm, 08/24/22 16:58:00 EDT, Height Start [...] Confirmed Active Obesity Confirmed Active BHN/CCA/CLARA-Janelle Antoine [phone]/Health [facility]dc active care coordination Confirmed Active Severe obesity (BMI 35.0-39.9) with comorbidity Confirmed Active 1followed by Dr. Dalton Box. and therapist. 2inertal and external on 2017 colonoscopy Social History Social History Type Response Smoking Status Former smoker; Other : quit per pt 03/08/18; entered on: 03/08/18 Sex Male Patient Care team information Care Team Personnel Name: Arya Mercado MD Position: [facility] Resident Member Role: PCP Address: Address: [address] [place] [address] Care Team Related Persons Name: SAMANTHA DAILY Name: EDUARDO DUNBAR Address: home [address] [place] [address]
--- OUTSIDE RECORDS SUMMARY | 2023-10-28 19:16 | XMS_ITS | Continuity of Care Document ---
Author Name Unknown Organization [facility] Address [address] [place] [address]- Care Team Providers Care Women'S Studies Professor Name Role Phone Arya Mercado MD Primary Care Physician Encounter [facility] [place] [place] Date(s): 04/26/22 - 06/23/22 [facility] [address] [place] [address]- Attending Physician: Not on Staff, Attending MD [...] 6 04/04/12 Given 1Location History: [facility] 2Admin Note: [facility] [id number] 3Admin Note: Administered at [facility] in [place] 4Admin Note: given at [facility] 5Admin Note: VIS 08/20 6Admin Note: VIS [...] 2 Refills, Maintenance, 05/07/20 10:50:00 EDT, Tablet, [facility] #[id number], 162, cm, 05/07/20 8:55:00 EDT, Height Start Date: 05/07/20 Status: Ordered aspirin 81 mg oral delayed release tablet 81 mg, 1, tablet, By Mouth, Daily, # 90 tablet, Refills 7, Tot. Refills 7, Maintenance, 10/21/20 15:17:00 EST, Route to Pharmacy Electronically, [facility] #[id number], 162, cm, 08/24/20 12:57:00 EDT, Height, 101.4, kg, 08/07/20 16:24:00 EDT, Dry... Start Date: 10/21/20 Status: Ordered atorvastatin 40 mg oral tablet 1 tablet = 40 mg, By Mouth, Daily, # 90 tablet, 1 Refills, Maintenance, 12/21/21 14:03:00 EST, Tablet, [facility] #[id number], 160, cm, 08/02/21 9:33:00 EDT, Height, 101.4, kg, 08/07/20 16:24:00EDT, Dry Weight Start Date: 12/21/21 Status: Ordered bacitracin topical 500 u/gm ointment 1 application, Topically, 4 times a day, # 30 Gm, 0 Refills, Maintenance, 05/07/20 10:55:00 EDT, Ointment, [facility] #[id number], 1 application Topically 4 times a day,x7 [...] 1 Refills, Maintenance, 03/09/21 14:32:00 EDT, Gel, [facility] #[id number], 160, cm, 01/10/21 14:43:00 EST, Height, 101.4, kg, 08/07/20 16:24:00 EDT, Dry Weight Start Date: 03/09/21 Status: Ordered Flonase 50 mcg/inh nasal spray 1 sprays, Nares, Both, 2 times a day, PRN Congestion, # 16 Gm, 7 Refills, Maintenance, 05/07/20 10:48:00 EDT, [place], [facility] #[id number], 1 sprays Nares, Both 2 times a [...] 5 Refills, Maintenance, 01/24/21 11:13:00 EDT, [place], [facility] #[id number], Partial fill upon patient request if the prescription is for a schedule II opioid drug., 1... Start Date: 01/24/21 Status: Ordered losartan 25 mg oral tablet 25 mg, 1, tablet, By Mouth, Daily, # 90 tablet, Refills 3, Tot. Refills 3, Maintenance, 08/02/21 9:29:00 EDT, Route to Pharmacy Electronically, [facility] #[id number], 160, cm, 08/02/21 8:58:00 EDT, Height, 101.4, kg, 08/07/20 16:24:00 EDT, Dry W... Start Date: 08/02/21 Stop Date: 07/28/22 Status: Ordered Mapap Arthritis Pain 650 mg oral tablet, extended release 1 tablet, By Mouth, Every 8 hours, PRN NEEDED FOR MODERATE PAIN, # 100 each, 0 Refills, Maintenance, 10/31/21 11:25:00 EST, [facility] #[id number], 160, cm, 08/02/21 9:33:00 EDT, Height, 101.4, kg, 08/07/20 16:24:00 EDT, Dry Weight Start Date: 10/31/21 Status: Ordered meloxicam 15 mg oral tablet 1 tablet = 15 mg, By Mouth, Daily, # 14 tablet, 0 Refills, Maintenance, 03/23/21 10:46:00 EDT, Tablet, [facility] #[id number], Partial fill upon patient request if the prescription is for a schedule II opioid drug., 160, cm, 03/23/21 10:12:00 EDT... Start Date: 03/23/21 Stop Date: 04/06/21 Status: Ordered omeprazole 20 mg oral enteric coated capsule 1 capsule, By Mouth, Daily, for 90 days, # 90 capsule, 0 Refills, Physician Stop 07/26/22 10:31:00 EDT, 04/27/22 10:31:00 EDT, [facility] #[id number], 160, cm, 08/02/21 9:33:00 EDT, Height, 101.4, [...] Refills, Soft Stop, 08/02/21 9:40:00 EDT, [place], [facility] #[id number], Partial fill upon patient request if the prescription is for a schedule II opioid drug., 0.5 mL Int... Start Date: 08/02/21 Status: Ordered traZODone 100 mg oral tablet via psychiatry, Refills 0, Maintenance, 08/11/20 13:38:00 EDT Start Date: 08/11/20 Status: Ordered Voltaren 1% topical gel 1 application, Topically, 4 times a day, # 100 Gm, 4 Refills, Maintenance, 03/23/21 10:48:00 EDT, Gel, [facility] #[id number], Partial fill upon patient request if the [...] Active Hypertension(Confirmed) Active Obesity(Confirmed) Active BHN/CCA/CLARA-Janelle Antoine [phone]/Health [facility] active care coordination(Confirmed) Active 1followed by Dr. Dalton Box. and therapist. 2inertal and external on 2017 colonoscopy Social History Social History Type Response Smoking Status Former smoker; Other : quit per pt 03/08/18; entered on: 03/08/18 Sex Male
--- OUTSIDE RECORDS SUMMARY | 2023-10-28 19:16 | XMS_ITS | Continuity of Care Document ---
Author Name Unknown Organization [facility] Address [address] [place] [address]- Care Team Providers Care Chief Orthoptist Name Role Phone Opal NUNEZ, Emily Powell Primary Care Physician [facility]counter [facility] Date(s): 12/23/19 - 02/19/20 [facility] [address] [place] [address]- [facility] Attending Physician: Not on Staff, Attending MD [...] tetanus/diphtheria/pertussis, acel(Tdap) 6 04/04/12 Given 1Location History: [facility] 2Admin Note: [facility] [id number] 3Admin Note: Administered at [facility] in [place] 4Admin Note: given at [facility] 5Admin Note: VIS 08/20 6Admin Note: VIS 11/23 Medications Alcohol Wipes See Instructions, # 30 application, Refills 5, Tot. Refills 5, Maintenance, ., 04/12/12 11:43:06 Start Date: 04/12/12 Status: Ordered aspirin 81 mg oral delayed release tablet 81 mg, 1, tablet, By Mouth, Daily, # 90 tablet, Refills 5, Tot. Refills 5, Maintenance, 07/25/17 11:21:39, Route to Pharmacy Electronically, [id number], [id number] Start Date: 07/25/17 Status: Ordered atorvastatin 40 mg oral tablet 1 tablet = 40 mg, By Mouth, Daily, # 90 tablet, 3 Refills, Maintenance, 10/22/19 14:35:30 EST, Tablet, 162, cm, 08/19/19 13:11:39 EDT, Height Start Date: 10/22/19 Status: Ordered Colyte 4 Flavor oral powder for reconstitution 240 mL, By Mouth, Every 10 minutes, # 1 each, 0 Refills, Maintenance, 10/02/16 9:28:34, REC Powder Start Date: 10/02/16 Status: Ordered Flonase 50 mcg/inh nasal spray 1 sprays, Nares, Both, 2 times a day, PRN Congestion, # 16 Gm, 5 Refills, Maintenance, 02/01/18 14:30:08, [place], 1 sprays Nares, Both 2 times a day,PRN:Congestion Start Date: 02/01/18 Status: Ordered FLUoxetine 20 mg oral capsule [...] 1 cc 31 G x 8 mm (516in) See Instructions, # 30 each, Refills 10, Tot. Refills 10, Maintenance, syringes to draw insulin, 05/27/13 13:58:49 Start Date: 05/27/13 Status: Ordered Lidocaine Viscous 2% solution 5 mL = 0.1 Gm, Topically, 4 times a day, PRN as needed for mouth sore pain, # 100 mL, 0 Refills, Maintenance, 12/22/19 15:47:00 EST, Solution, [facility], 5 mL Topically 4 times a day,PRN:as needed for mouth sore pain, 162, cm, ... Start Date: 12/22/19 Status: Ordered losartan 25 mg oral tablet 25 mg, 1, tablet, By Mouth, Daily, # 90 tablet, Refills 3, Tot. Refills 3, Maintenance, 02/02/20 16:29:00 EDT, [id number], 162, cm, 12/22/19 14:37:00 EST, Height Start [...] Compound Start Date: 07/10/19 Status: Ordered Pen Mason, 29 G x 12.7 mm BD Ultra Fine See Instructions, # 100 each, Refills 10, Tot. Refills 10, Maintenance, use as directed for Type 1 Diabetes Mellitus, 05/27/13 13:58:45 Start Date: 05/27/13 Stop Date: 04/22/14 Status: Ordered Pen Mason, 31 G x 8 mm BD Ultra [...] 1followed by Dr. Dalton Box. and therapist. Social History Social History Type Response Smoking Status Former smoker; Other : quit per pt 03/08/18; entered on: 03/08/18 Sex Male
--- OUTSIDE RECORDS SUMMARY | 2023-10-28 19:16 | XMS_ITS | Continuity of Care Document ---
Author Name Unknown Organization [facility] Address [address] [place] [address]- Care Team Providers Care [employer] Clerk Name Role Phone Arya Mercado MD Primary Care Physician En[place] [facility] [place] Date(s): 08/31/21 - 09/30/[address] [address]- Attending Physician: Admtr, [id number] Admitting Physician: Admtr, [id number] Referring Physician: Admtr, [...] 1Location History: [facility] 2Admin Note: [facility] [id number] 3Admin Note: Administered at [facility] in [place] 4Admin Note: given at [facility] [...] 2 Refills, Maintenance, 05/07/20 10:50:00 EDT, Tablet, [facility] #[id number], 162, cm, 05/07/20 8:55:00 EDT, Height Start Date: 05/07/20 Status: Ordered aspirin 81 mg oral delayed release tablet 81 mg, 1, tablet, By Mouth, Daily, # 90 tablet, Refills 7, Tot. Refills 7, Maintenance, 10/21/20 15:17:00 EST, Route to Pharmacy Electronically, [facility] #[id number], 162, cm, 08/24/20 12:57:00 EDT, Height, 101.4, kg, 08/07/20 16:24:00 EDT, Dry... Start Date: 10/21/20 Status: Ordered atorvastatin 40 mg oral tablet 1 tablet = 40 mg, By Mouth, Daily, # 90 tablet, 1 Refills, Maintenance, 08/02/21 9:28:00 EDT, Tablet, [facility] #[id number], 160, cm, 08/02/21 8:58:00 EDT, Height, 101.4, kg, 08/07/20 16:24:00 EDT, Dry Weight Start Date: 08/02/21 Status: Ordered bacitracin topical 500 u/gm ointment 1 application, Topically, 4 times a day, # 30 Gm, 0 Refills, Maintenance, 05/07/20 10:55:00 EDT, Ointment, [facility] #35015, 1 application Topically 4 times a day,x7 [...] 1 Refills, Maintenance, 03/09/21 14:32:00 EDT, Gel, [facility] #[id number], 160, cm, 01/10/21 14:43:00 EST, Height, 101.4, kg, 08/07/20 16:24:00 EDT, Dry Weight Start Date: 03/09/21 Status: Ordered Flonase 50 mcg/inh nasal spray 1 sprays, Nares, Both, 2 times a day, PRN Congestion, # 16 Gm, 7 Refills, Maintenance, 05/07/20 10:48:00 EDT, [place], [facility] #[id number], 1 sprays Nares, Both 2 times a [...] 5 Refills, Maintenance, 01/24/21 11:13:00 EDT, [place], [facility] #[id number], Partial fill upon patient request if the prescription is for a schedule II opioid drug., 1... Start Date: 01/24/21 Status: Ordered losartan 25 mg oral tablet 25 mg, 1, tablet, By Mouth, Daily, # 90 tablet, Refills 3, Tot. Refills 3, Maintenance, 08/02/21 9:29:00 EDT, Route to Pharmacy Electronically, [facility] #[id number], 160, cm, 08/02/21 8:58:00 EDT, Height, 101.4, kg, 08/07/20 16:24:00 EDT, Dry W... Start Date: 08/02/21 Stop Date: 07/28/22 Status: Ordered Mapap Arthritis Pain 650 mg oral tablet, extended release 1 tablet, By Mouth, Every 8 hours, PRN NEEDED FOR MODERATE PAIN, # 100 each, 0 Refills, Maintenance, 08/02/21 9:29:00 EDT, [facility] #[id number], 160, cm, 08/02/21 8:58:00 EDT, Height, 101.4, kg, 08/07/20 16:24:00 EDT, Dry Weight Start Date: 08/02/21 Status: Ordered meloxicam 15 mg oral tablet 1 tablet = 15 mg, By Mouth, Daily, # 14 tablet, 0 Refills, Maintenance, 03/23/21 10:46:00 EDT, Tablet, [facility] #[id number], Partial fill upon patient request if the prescription is for a schedule II opioid drug., 160, cm, 03/23/21 10:12:00 EDT... Start Date: 03/23/21 Stop Date: 04/06/21 Status: Ordered omeprazole 20 mg oral enteric coated capsule 1 capsule, By Mouth, Daily, # 30 capsule, 2 Refills, [facility] #[id number], 160, cm, :33:00 EDT, Height, 101.4, kg, 08/07/20 16:24:00 EDT, Dry Weight Start Date: 09/05/21 Status: Ordered pair of atrex diabetic shoes pair of atrex diabetic shoes, See Instructions, # 2 each, Refills 0, Tot. Refills 0, Maintenance, Diagnosis codes: E11.9 and L84, 07/27/21 18:23:00 EDT, Compound Start Date: 07/27/21 Status: Ordered Shingrix intramuscular injection = 0.5 mL, Intramuscular, Once, repeat dose in 2 to 6 months, # 2 each, 0 Refills, Soft Stop, 08/02/21 9:40:00 EDT, [facility] #[id number], Partial fill upon patient request if the prescription is for a schedule II opioid drug., 0.5 mL Int... Start Date: 08/02/21 Status: Ordered traZODone 100 mg oral tablet via psychiatry, Refills 0, Maintenance, 08/11/20 13:38:00 EDT Start Date: 08/11/20 Status: Ordered Voltaren 1% topical gel 1 application, Topically, 4 times a day, # 100 Gm, 4 Refills, Maintenance, 03/23/21 10:48:00 EDT, [facility] #[id number], Partial fill upon patient request if the [...] Active Hypertension(Confirmed) Active Obesity(Confirmed) Active N/VAHID/Omid Antoine [phone]/Health [facility] active care coordination(Confirmed) Active 1followed by Dr. Dalton Box. and therapist. 2inertal and external on 2017 colonoscopy Social History Social History Type Response Smoking Status Former smoker; Other : quit per pt 03/08/18; entered on: 03/08/18 Sex Male
--- OUTSIDE RECORDS SUMMARY | 2023-10-28 19:16 | XMS_ITS | Continuity of Care Document ---
Author Name Unknown Organization [facility] Address [address] [place] [address]- Care Team Providers Care Switchboard Receptionist Name Role Phone Opal NUNEZ, Emily Powell Primary Care Physician Encounter [facility] Date(s): 05/03/21 - 05/10/21 [facility] [address] [place], [place] [address] Attending Physician: Antonia Smith MD Referring Physician: Opal NUNEZ, Emily Powell [...] tetanus/diphtheria/pertussis, acel(Tdap) 6 04/04/12 Given 1Location History: [facility] 2Admin Note: [facility] [id number] 3Admin Note: Administered at [facility] 4Admin Note: given at [facility] 5Admin Note: VIS 08/20 6Admin Note: VIS [...] 2 Refills, Maintenance, 05/07/20 10:50:00 EDT, Tablet, [facility] #[id number], 162, cm, 05/07/20 8:55:00 EDT, Height Start Date: 05/07/20 Status: Ordered aspirin 81 mg oral delayed release tablet 81 mg, 1, tablet, By Mouth, Daily, # 90 tablet, Refills 7, Tot. Refills 7, Maintenance, 10/21/20 15:17:00 EST, Route to Pharmacy Electronically, [facility] #[id number], 162, cm, 08/24/20 12:57:00 EDT, Height, 101.4, kg, 08/07/20 16:24:00 EDT, Dry... Start Date: 10/21/20 Status: Ordered atorvastatin 40 mg oral tablet 1 tablet = 40 mg, By Mouth, Daily, # 90 tablet, 1 Refills, Maintenance, 03/09/21 14:32:00 EDT, Tablet, [facility] #[id number], 160, cm, 01/10/21 14:43:00 EST, Height, 101.4, kg, 08/07/20 16:24:00 EDT, Dry Weight Start Date: 03/09/21 Status: Ordered bacitracin topical 500 u/gm ointment 1 application, Topically, 4 times a day, # 30 Gm, 0 Refills, Maintenance, 05/07/20 10:55:00 EDT, Ointment, [facility] #[id number], 1 application Topically 4 times a day,x7 [...] 1 Refills, Maintenance, 03/09/21 14:32:00 EDT, Gel, [facility] #[id number], 160, cm, 01/10/21 14:43:00 EST, Height, 101.4, kg, 08/07/20 16:24:00 EDT, Dry Weight Start Date: 03/09/21 Status: Ordered Flonase 50 mcg/inh nasal spray 1 sprays, Nares, Both, 2 times a day, PRN Congestion, # 16 Gm, 7 Refills, Maintenance, 05/07/20 10:48:00 EDT, [place], [facility] #[id number], 1 sprays Nares, Both 2 times a [...] 5 Refills, Maintenance, 01/24/21 11:13:00 EDT, Film, [facility] #[id number], Partial fill upon patient request if the prescription is for a schedule II opioid drug., 1... Start Date: 01/24/21 Status: Ordered losartan 25 mg oral tablet 25 mg, 1, tablet, By Mouth, Daily, # 90 tablet, Refills 7, Tot. Refills 7, Maintenance, 10/21/20 15:16:00 EST, Route to Pharmacy Electronically, [facility] #[id number], 162, cm, 08/24/20 12:57:00 EDT, Height, 101.4, kg, 08/07/20 16:24:00 EDT, Dry... Start Date: 10/21/20 Stop Date: 10/11/22 Status: Ordered meloxicam 15 mg oral tablet 1 tablet = 15 mg, By Mouth, Daily, # 14 tablet, 0 Refills, Maintenance, 03/23/21 10:46:00 EDT, Tablet, [facility] #[id number], Partial fill upon patient request if the prescription is for a schedule II opioid drug., 160, cm, 03/23/21 10:12:00 EDT... Start Date: 03/23/21 Stop Date: 04/06/21 Status: Ordered omeprazole 20 mg oral enteric coated capsule 1 capsule = 20 mg, By Mouth, Daily, # 30 capsule, 2 Refills, Maintenance, 02/22/21 11:07:00 EDT, ECCapsule, [facility] #[id number], Partial fill upon patient request if the [...] 7:44:00 EDT, 01/20/21 7:44:00 EST, ER Tablet, [facility] #[id number], Partialfill upon patient request if the prescription is fo... Start Date: 01/20/21 Stop Date: 05/20/21 Status: Ordered Voltaren 1% topical gel 1 application, Topically, 4 times a day, # 100 Gm, 4 Refills, Maintenance, 03/23/21 10:48:00 EDT, Gel, [facility] #[id number], Partial fill upon patient request if the [...] Active Hypertension(Confirmed) Active Obesity(Confirmed) Active BHN/CCA/CLARA-Janelle Antoine [phone]/Health [facility] active care coordination(Confirmed) Active 1followed by Dr. Dalton Box. and therapist. 2inertal and external on 2016 colonoscopy Vital Signs Most recent to oldest [Reference Range]: 1 Height 160 cm (05/03/21 11:44 AM) Oxygen Saturation [94-100 %] 100 % (05/03/21 11:44 AM) Pulse Rate [55-90 bpm] 67 bpm (05/03/21 11:44 AM) Blood Pressure [90-138/55-84 mm Hg] 132/ 75mm Hg (05/03/21 11:44 AM) Respiratory Rate [16-30 br/min] 20 br/mi n (05/03/21 11:44 AM) Temperature [96.8-100.4 DegF] 98.1 DegF (05/03/21 11:44 AM) Mode of Delivery (Oxygen) Room air (05/03/21 11:44 AM) Blood pressure sites Arm, left (05/03/21 11:44 AM) Temperature Route Temporal (05/03/21 11:44 AM) Social History Social History Type Response Smoking Status Former smoker; Other : quit per pt 03/08/18; entered on: 03/08/18 Sex Male
--- OUTSIDE RECORDS SUMMARY | 2023-10-28 19:16 | XMS_ITS | Continuity of Care Document ---
Author Name Unknown Organization [facility] Address [address] [place] [address]- Care Team Providers Care Revenue Director Name Role Phone Rogelio NUNEZ, Arya Primary Care Physician Encounter [facility] Date(s): 08/31/21 - 09/30/21 [facility] [address] [place] [address]- Allergies, Adverse Reactions, Alerts Substance Reaction Severity [...] tetanus/diphtheria/pertussis, acel(Tdap) 6 04/04/12 Given 1Location History: [facility] 2Admin Note: [facility] [id number] 3Admin Note: Administered at [facility] [place] 4Admin Note: given at [facility] 5Admin Note: VIS 08/20 6Admin [...] 2 Refills, Maintenance, 05/07/20 10:50:00 EDT, Tablet, [facility] #[id number], 162, cm, 05/07/20 8:55:00 EDT, Height Start Date: 05/07/20 Status: Ordered aspirin 81 mg oral delayed release tablet 81 mg, 1, tablet, By Mouth, Daily, # 90 tablet, Refills 7, Tot. Refills 7, Maintenance, 10/21/20 15:17:00 EST, Route to Pharmacy Electronically, [facility] #[id number], 162, cm, 08/24/20 12:57:00 EDT, Height, 101.4, kg, 08/07/20 16:24:00 EDT, Dry... Start Date: 10/21/20 Status: Ordered atorvastatin 40 mg oral tablet 1 tablet = 40 mg, By Mouth, Daily, # 90 tablet, 1 Refills, Maintenance, 08/02/21 9:28:00 EDT, Tablet, [facility] #[id number], 160, cm, 08/02/21 8:58:00 EDT, Height, 101.4, kg, 08/07/20 16:24:00 EDT, Dry Weight Start Date: 08/02/21 Status: Ordered bacitracin topical 500 u/gm ointment 1 application, Topically, 4 times a day, # 30 Gm, 0 Refills, Maintenance, 05/07/20 10:55:00 EDT, Ointment, [facility] #[id number], 1 application Topically 4 times a day,x7 [...] 1 Refills, Maintenance, 03/09/21 14:32:00 EDT, Gel, [facility] #[id number], 160, cm, 01/10/21 14:43:00 EST, Height, 101.4, kg, 08/07/20 16:24:00 EDT, Dry Weight Start Date: 03/09/21 Status: Ordered Flonase 50 mcg/inh nasal spray 1 sprays, Nares, Both, 2 times a day, PRN Congestion, # 16 Gm, 7 Refills, Maintenance, 05/07/20 10:48:00 EDT, [facility] #[id number], 1 sprays Nares, Both 2 times a [...] each, 5 Refills, Maintenance, 01/24/21 11:13:00 EDT, [facility] #[id number], Partial fill upon patient request if the prescription is for a schedule II opioid drug., 1... Start Date: 01/24/21 Status: Ordered losartan 25 mg oral tablet 25 mg, 1, tablet, By Mouth, Daily, # 90 tablet, Refills 3, Tot. Refills 3, Maintenance, 08/02/21 9:29:00 EDT, Route to Pharmacy Electronically, [facility] #[id number], 160, cm, 08/02/21 8:58:00 EDT, Height, 101.4, kg, 08/07/20 16:24:00 EDT, Dry W... Start Date: 08/02/21 Stop Date: 07/28/22 Status: Ordered Mapap Arthritis Pain 650 mg oral tablet, extended release 1 tablet, By Mouth, Every 8 hours, PRN NEEDED FOR MODERATE PAIN, # 100 each, 0 Refills, Maintenance, 08/02/21 9:29:00 EDT, [facility] #[id number], 160, cm, 08/02/21 8:58:00 EDT, Height, 101.4, kg, 08/07/20 16:24:00 EDT, Dry Weight Start Date: 08/02/21 Status: Ordered meloxicam 15 mg oral tablet 1 tablet = 15 mg, By Mouth, Daily, # 14 tablet, 0 Refills, Maintenance, 03/23/21 10:46:00 EDT, Tablet, [facility] #[id number], Partial fill upon patient request if the prescription is for a schedule II opioid drug., 160, cm, 03/23/21 10:12:00 EDT... Start Date: 03/23/21 Stop Date: 04/06/21 Status: Ordered omeprazole 20 mg oral enteric coated capsule 1 capsule, By Mouth, Daily, # 30 capsule, 2 Refills, [facility] #[id number], 160, cm, :33:00 EDT, Height, 101.4, kg, [...] Refills, Soft Stop, 08/02/21 9:40:00 EDT, Powder, [facility] #[id number], Partial fill upon patient request if the prescription is for a schedule II opioid drug., 0.5 mL Int... Start Date: 08/02/21 Status: Ordered traZODone 100 mg oral tablet via psychiatry, Refills 0, Maintenance, 08/11/20 13:38:00 EDT Start Date: 08/11/20 Status: Ordered Voltaren 1% topical gel 1 application, Topically, 4 times a day, # 100 Gm, 4 Refills, Maintenance, 03/23/21 10:48:00 EDT, Gel, [facility] #[id number], Partial fill upon patient request if the [...] Active Hypertension(Confirmed) Active Obesity(Confirmed) Active BHN/CCA/CLARA-Janelle Antoine [phone]/Health f[facility] active care coordination(Confirmed) Active 1followed by Dr. Dalton Box. and therapist. 2inertal and external on 2016 colonoscopy Social History Social History Type Response Smoking Status Former smoker; Other : quit per pt 03/08/18; entered on: 03/08/18 Sex Male
--- OUTSIDE RECORDS SUMMARY | 2023-10-28 19:17 | XMS_ITS | Continuity of Care Document ---
Author Name Unknown Organization [facility] Address [address] [place] [address]- Care Team Providers Care Fuel Cell Assembler Name Role Phone Opal NUNEZ, Emily Powell Primary Care Physician Encounter [facility] Date(s): 02/11/20 - 02/21/20 [facility] [address] [place] [address]- [facility] Attending Physician: Collette Castillo Admitting Physician: AdmtrCollette [...] acel(Tdap) 6 04/04/12 Given 1Location History: [facility] 2Admin Note: [facility] [id number] 3Admin Note: Administered at [facility] [place] 4Admin Note: given at [facility] 5Admin Note: VIS 08/20 6Admin Note: VIS 11/23 Medications Alcohol Wipes See Instructions, # 30 application, Refills 5, Tot. Refills 5, Maintenance, ., 04/12/12 11:43:06 Start Date: 04/12/12 Status: Ordered aspirin 81 mg oral delayed release tablet 81 mg, 1, tablet, By Mouth, Daily, # 90 tablet, Refills 5, Tot. Refills 5, Maintenance, 07/25/17 11:21:39, Route to Pharmacy Electronically, [id number], [id number] Start Date: 07/25/17 Status: Ordered atorvastatin 40 [...] 16 Gm, 5 Refills, Maintenance, 02/01/18 14:30:08, [place], 1 sprays Nares, Both 2 times a [...] 0 Refills, Maintenance, 12/22/19 15:47:00 EST, Solution, [facility], 5 mL Topically 4 times a day,PRN:as needed for mouth sore pain, 162, cm, ... Start Date: 12/22/19 Status: Ordered losartan 25 mg oral tablet 25 mg, 1, tablet, By Mouth, Daily, # 90 tablet, Refills 3, Tot. Refills 3, Maintenance, 02/02/20 16:29:00 EDT, Route to Pharmacy Electronically, [facility] #[id number], 162, cm, 12/22/19 14:37:00 EST, Height Start [...] Compound Start Date: 07/10/19 Status: Ordered Pen Banco, 29 G x 12.7 mm BD Ultra Fine See Instructions, # 100 each, Refills 10, Tot. Refills 10, Maintenance, use as directed for Type 1 Diabetes Mellitus, 05/27/13 13:58:45 Start Date: 05/27/13 Stop Date: 04/22/14 Status: Ordered Pen Banco, 31 G x 8 mm BD Ultra [...]
--- OUTSIDE RECORDS SUMMARY | 2023-10-28 19:17 | XMS_ITS | Continuity of Care Document ---
Author Name Unknown Organization [facility] Address [address] [place] [address]- Care Team Providers Care Special Services Coordinator Name Role Phone Arya Mercado MD Primary Care Physician [phone] Encounter [facility] Date(s): 11/07/22 - 12/07/22 [facility] [address] [place], [place] [address] Allergies, Adverse Reactions, Alerts Substance Reaction Severity Status Latex Active metFORMIN lightheadedness GI symptoms Active Immunizations Given and Recorded Vaccine Date Status Refusal Reason tetanus/diphtheria/pertussis, acel(Tdap) 09/11/22 Given tetanus/diphtheria/pertussis, acel(Tdap) 1 04/04/12 Given [id number] 12y+ bivalent booster vax 08/24/22 Recorded influenza [...] inactivated 5 07/31/12 Gi rojelio SARS-CoV-2 mRNA ([id number]) vax 03/08/22 Recorded zoster vaccine, inactivated 01/31/22 Recorded zoster vaccine, inactivated 08/02/21 Recorded SARS-CoV-2 (COVID-19) mRNA BNT-162b2 vac 10/29/21 Recorded SARS-CoV-2 (COVID-19) mRNA BNT-162b2 vac 02/17/21 Recorded SARS-CoV-2 (COVID-19) mRNA BNT-162b2 vac 01/27/21 Recorded pneumococcal 23-valent vaccine 6 06/05/12 Given 1Admin Note: VIS 11/23 2Location History: [facility] 3Admin Note: [facility] [id number] 4Admin Note: Administered at [facility] 5Admin Note: given at [facility] 6Admin Note: VIS 08/20 Medications [...] tablet, 3 Refills, Maintenance, 11/03/22 16:19:00 EST, [facility] #[id number], Partial fill upon patient request if the prescription is for a schedule II opioid drug., 160, cm... Start Date: 11/03/22 Status: Ordered Allergy (Loratadine) 10 mg oral tablet 1 tablet = 10 mg, By Mouth, Daily, # 30 tablet, 2 Refills, Maintenance, 05/07/20 10:50:00 EDT, Tablet, [facility] #[id number], 162, cm, 05/07/20 8:55:00 EDT, Height Start Date: 05/07/20 Status: Ordered aspirin 81 mg oral delayed release tablet 81 mg, 1, tablet, By Mouth, Daily, # 90 tablet, Refills 7, Tot. Refills 7, Maintenance, 10/21/20 15:17:00 EST, Route to Pharmacy Electronically, [facility] #[id number], 162, cm, 08/24/20 12:57:00 EDT, Height, 101.4, kg, 08/07/20 16:24:00 EDT, Dry... Start Date: 10/21/20 Status: Ordered atorvastatin 40 mg oral tablet 1 tablet = 40 mg, By Mouth, Daily, # 90 tablet, 1 Refills, Maintenance, 07/20/22 14:56:00 EDT, Tablet, [facility] #[id number], 160, cm, 08/02/21 9:33:00 EDT, Height, 101.4, kg, 08/07/20 16:24:00EDT, Dry Weight Start Date: 07/20/22 Status: Ordered bacitracin topical 500 u/gm ointment 1 application, Topically, 4 times a day, # 30 Gm, 0 Refills, Maintenance, 05/07/20 10:55:00 EDT, Ointment, [facility] #[id number], 1 application Topically 4 times a day,x7 [...] 0 Refills, Maintenance, 11/03/22 14:34:00 EST, Capsule, [facility] #[id number], Partial fill upon patient request if the prescription is for a schedule II opioid drug., 160,... Start Date: 11/03/22 Stop Date: 11/10/22 Status: Ordered diclofenac 1% topical gel 1 application, Topically, 4 times a day, # 100 Gm, 4 Refills, Maintenance, 11/03/22 14:30:00 EST, Gel, [facility] #[id number], 160, cm, 11/03/22 13:45:00 EST, Height Start Date: 11/03/22 Status: Ordered Flonase 50 mcg/inh nasal spray 1 sprays, Nares, Both, 2 times a day, PRN Congestion, # 16 Gm, 7 Refills, Maintenance, 05/07/20 10:48:00 EDT, [place], [facility] #[id number], 1 sprays Nares, Both 2 times a [...] 5 Refills, Maintenance, 01/24/21 11:13:00 EDT, Film, [facility] #[id number], Partial fill upon patient request if the prescription is for a schedule II opioid drug., 1... Start Date: 01/24/21 Status: Ordered losartan 25 mg oral tablet 25 mg, 1, tablet, By Mouth, Daily, # 90 tablet, Refills 1, Tot. Refills 1, Maintenance, 10/23/22 11:41:00 EST, Route to Pharmacy Electronically, [facility] #[id number], 160, cm, 08/24/22 16:58:00 EDT, Height Start Date: 10/23/22 Stop Date: 04/21/23 Status: Ordered omeprazole 20 mg oral enteric coated capsule 1 capsule, By Mouth, Daily, for 90 days, # 90 capsule, 0 Refills, Physician Stop 01/17/23 13:09:00 EST, 10/19/22 13:09:00 EST, [facility] #[id number], 160, cm, 08/24/22 16:58:00 EDT, Height Start [...] Confirmed Active Obesity Confirmed Active BHN/CCA/CLARA-Janelle Antoine [phone]/Health skilled nursing active care coordination Confirmed Active Severe obesity (BMI 35.0-39.9) with comorbidity Confirmed Active 1followed by Dr. Dalton Box. and therapist. 2inertal and external on 2017 colonoscopy Social History Social History Type Response Smoking Status Former smoker; Other : quit per pt 03/08/18; entered on: 03/08/18 Sex Male Patient Care team information Care Team Personnel Name: Arya Mercado MD Position: [facility] Resident Member Role: PCP Address: Address: [address] [place] [address] [place] [address]- Care Team Related Persons Name: SAMANTHA DAILY Name: EDUARDO DUNBAR Address: home [address] [place] [address]
--- OUTSIDE RECORDS SUMMARY | 2023-10-28 19:17 | XMS_ITS | Continuity of Care Document ---
Author Name Unknown Organization [facility] Address [address] [place] [address]- Care Team Providers Care Maintenance Engineer Name Role Phone Rogelio NUNEZ, Arya Ruizradha Primary Care Physician [place] [facility] Date(s): 02/06/23 - 03/08/23 [facility] [address] [place] [address] Allergies, Adverse Reactions, Alerts Substance Reaction Severity Status Latex Active metFORMIN lightheadedness GI symptoms Active Immunizations Given and Recorded Vaccine Date Status Refusal Reason tetanus/diphtheria/pertussis, acel(Tdap) 09/11/22 Given tetanus/diphtheria/pertussis, acel(Tdap) 1 04/04/12 Given [id number] 12y+ bivalent booster vax 08/24/22 Recorded influenza [...] inactivated 5 07/31/12 Gi rojelio SARS-CoV-2 mRNA ([id number]) vax 03/08/22 Recorded zoster vaccine, inactivated 01/31/22 Recorded zoster vaccine, inactivated 08/02/21 Recorded SARS-CoV-2 (COVID-19) mRNA BNT-162b2 vac 10/29/21 Recorded SARS-CoV-2 (COVID-19) mRNA BNT-162b2 vac 02/17/21 Recorded SARS-CoV-2 (COVID-19) mRNA BNT-162b2 vac 01/27/21 Recorded pneumococcal 23-valent vaccine 6 06/05/12 Given 1Admin Note: VIS 11/23 2Location History: [facility] 3Admin Note: [facility] [id number] 4Admin Note: Administered at [facility] [place] 5Admin Note: given at [facility] 6Admin Note: VIS 08/20 Medications 3 pair [...] tablet, 5 Refills, Maintenance, 02/06/23 18:11:00 EDT, [facility] #[id number], Partial fill upon patient request if the prescription is for a schedule II opioid drug., 160, cm,... Start Date: 02/06/23 Status: Ordered Allergy (Loratadine) 10 mg oral tablet 1 tablet = 10 mg, By Mouth, Daily, # 30 tablet, 2 Refills, Maintenance, 05/07/20 10:50:00 EDT, Tablet, [facility] #[id number], 162, cm, 05/07/20 8:55:00 EDT, Height Start Date: 05/07/20 Status: Ordered atorvastatin 40 mg oral tablet 1 tablet = 40 mg, By Mouth, Daily, # 90 tablet, 1 Refills, Maintenance, 01/05/23 9:28:00 EST, Tablet, [facility] #[id number], 160, cm, 01/04/23 8:32:00 EST, Height Start Date: 01/05/23 Status: Ordered bacitracin topical 500 u/gm ointment 1 application, Topically, 4 times a day, # 30 Gm, 0 Refills, Maintenance, 05/07/20 10:55:00 EDT, Ointment, [facility] #[id number], 1 application Topically 4 times a day,x7 [...] 0 Refills, Maintenance, 11/03/22 14:34:00 EST, Capsule, [facility] #[id number], Partial fill upon patient request if the prescription is for a schedule II opioid drug., 160,... Start Date: 11/03/22 Stop Date: 11/10/22 Status: Ordered diclofenac 1% topical gel 1 application, Topically, 4 times a day, # 100 Gm, 4 Refills, Maintenance, 11/03/22 14:30:00 EST, Gel, [facility] #[id number], 160, cm, 11/03/22 13:45:00 EST, Height Start Date: 11/03/22 Status: Ordered Flonase 50 mcg/inh nasal spray 1 sprays, Nares, Both, 2 times a day, PRN Congestion, # 16 Gm, 7 Refills, Maintenance, 05/07/20 10:48:00 EDT, [place], [facility] #[id number], 1 sprays Nares, Both 2 times a day,PRN:Congestion, 162, cm, 05/07/20 8:55:00 EDT, Height Start Date: 05/07/20 Status: Ordered FLUoxetine 20 mg oral capsule via psychiatry, Refills 0, Maintenance, 08/11/20 13:38:00 EDT Start Date: 08/11/20 Status: Ordered lidocaine 5% topical film 1 patch, Topically, Daily, PRN Pain , Mild, remove after 12 hours, # 13 each, 5 Refills, Maintenance, 01/24/21 11:13:00 EDT, [facility] #[id number], Partial fill upon patient request if the prescription is for a schedule II opioid drug., 1... Start Date: 01/24/21 Status: Ordered losartan 25 mg oral tablet 1 tablet, By Mouth, Daily, # 90 tablet, 1 Refills, Maintenance, 02/13/23 8:27:00 EDT, [facility] #[id number], 160, cm, 01/09/23 10:35:00 EST, Height Start [...] each, 0 Refills, Maintenance, 02/15/23 18:19:00 EDT, [facility] #[id number], Partial fill upon patient request if the [...] Confirmed Active Osteoarthritis Confirmed Active BHN/CCA/CLARA-Janelle Antoine [phone]/Health correction active care coordination Confirmed Active Severe obesity (BMI 35.0-39.9) with comorbidity Confirmed Active 1followed by Dr. Dalton Box. and therapist. 2inertal and external on 2016 colonoscopy Social History Social History Type Response Smoking Status Former smoker; Other : quit per pt 03/08/18; entered on: 03/08/18 Sex Male Patient Care team information Care Team Personnel Name: Arya Mercado MD Position: [facility] Resident Member Role: PCP Address: Address: [address] [place] [address] [place] [address]- Care Team Related Persons Name: SAMANTHA DAILY Name: EDUARDO DUNBAR Address: [address] [place] [address]
--- OUTSIDE RECORDS SUMMARY | 2023-10-28 19:17 | XMS_ITS | Continuity of Care Document ---
Author Name Unknown Organization [facility] Address [address] [place] [address]- Care Team Providers Care Advisory Application Developer Name Role Phone Rogelio NUNEZ, Arya Primary Care Physician [phone] [facility]counter [facility] Date(s): 07/20/22 - 08/19/22 [facility] [address] [place] [address]- Allergies, Adverse Reactions, Alerts Substance Reaction Severity [...] tetanus/diphtheria/pertussis, acel(Tdap) 6 04/04/12 Given 1Location History: [facility] 2Admin Note: [facility] [id number] 3Admin Note: Administered at [facility] [place] 4Admin Note: given at [facility] 5Admin Note: VIS 08/20 6Admin Note: [...] 2 Refills, Maintenance, 05/07/20 10:50:00 EDT, Tablet, [facility] #[id number], 162, cm, 05/07/20 8:55:00 EDT, Height Start Date: 05/07/20 Status: Ordered aspirin 81 mg oral delayed release tablet 81 mg, 1, tablet, By Mouth, Daily, # 90 tablet, Refills 7, Tot. Refills 7, Maintenance, 10/21/20 15:17:00 EST, Route to Pharmacy Electronically, [facility] #[id number], 162, cm, 08/24/20 12:57:00 EDT, Height, 101.4, kg, 08/07/20 16:24:00 EDT, Dry... Start Date: 10/21/20 Status: Ordered atorvastatin 40 mg oral tablet 1 tablet = 40 mg, By Mouth, Daily, # 90 tablet, 1 Refills, Maintenance, 07/20/22 14:56:00 EDT, Tablet, [facility] #[id number], 160, cm, 08/02/21 9:33:00 EDT, Height, 101.4, kg, 08/07/20 16:24:00EDT, Dry Weight Start Date: 07/20/22 Status: Ordered bacitracin topical 500 u/gm ointment 1 application, Topically, 4 times a day, # 30 Gm, 0 Refills, Maintenance, 05/07/20 10:55:00 EDT, Ointment, [facility] #[id number], 1 application Topically 4 times a day,x7 [...] 1 Refills, Maintenance, 03/09/21 14:32:00 EDT, Gel, [facility] #[id number], 160, cm, 01/10/21 14:43:00 EST, Height, 101.4, kg, 08/07/20 16:24:00 EDT, Dry Weight Start Date: 03/09/21 Status: Ordered Flonase 50 mcg/inh nasal spray 1 sprays, Nares, Both, 2 times a day, PRN Congestion, # 16 Gm, 7 Refills, Maintenance, 05/07/20 10:48:00 EDT, [facility] #[id number], 1 sprays Nares, Both 2 times a [...] each, 5 Refills, Maintenance, 01/24/21 11:13:00 EDT, [facility] #[id number], Partial fill upon patient request if the prescription is for a schedule II opioid drug., 1... Start Date: 01/24/21 Status: Ordered losartan 25 mg oral tablet 25 mg, 1, tablet, By Mouth, Daily, # 90 tablet, Refills 3, Tot. Refills 3, Maintenance, 08/02/21 9:29:00 EDT, Route to Pharmacy Electronically, [facility] #[id number], 160, cm, 08/02/21 8:58:00 EDT, Height, 101.4, kg, 08/07/20 16:24:00 EDT, Dry W... Start Date: 08/02/21 Stop Date: 07/28/22 Status: Ordered Mapap Arthritis Pain 650 mg oral tablet, extended release 1 tablet, By Mouth, Every 8 hours, PRN NEEDED FOR MODERATE PAIN, # 100 each, 0 Refills, Maintenance, 10/31/21 11:25:00 EST, [facility] #[id number], 160, cm, 08/02/21 9:33:00 EDT, Height, 101.4, kg, 08/07/20 16:24:00 EDT, Dry Weight Start Date: 10/31/21 Status: Ordered meloxicam 15 mg oral tablet 1 tablet = 15 mg, By Mouth, Daily, # 14 tablet, 0 Refills, Maintenance, 03/23/21 10:46:00 EDT, Tablet, [facility] #[id number], Partial fill upon patient request if the prescription is for a schedule II opioid drug., 160, cm, 03/23/21 10:12:00 EDT... Start Date: 03/23/21 Stop Date: 04/06/21 Status: Ordered omeprazole 20 mg oral enteric coated capsule 1 capsule, By Mouth, Daily, for 90 days, # 90 capsule, 0 Refills, Physician Stop 10/24/22 10:31:00 EST, 07/26/22 10:31:00 EDT, [facility] #[id number], 160, cm, 08/02/21 9:33:00 EDT, Height, 101.4, [...] Refills, Soft Stop, 08/02/21 9:40:00 EDT, Powder, [facility] #[id number], Partial fill upon patient request if the prescription is for a schedule II opioid drug., 0.5 mL Int... Start Date: 08/02/21 Status: Ordered traZODone 100 mg oral tablet via psychiatry, Refills 0, Maintenance, 08/11/20 13:38:00 EDT Start Date: 08/11/20 Status: Ordered Voltaren 1% topical gel 1 application, Topically, 4 times a day, # 100 Gm, 4 Refills, Maintenance, 03/23/21 10:48:00 EDT, [facility] #[id number], Partial fill upon patient request if the [...] Active Hypertension Confirmed Active Obesity Confirmed Active BHN/CCA/CP-Janelle Antoine [phone]/Health long term active care coordination Confirmed Active 1followed by Dr. Dalton Box. and therapist. 2inertal and external on 2017 colonoscopy Social History Social History Type Response Smoking Status Former smoker; Other : quit per pt 03/08/18; entered on: 03/08/18 Sex Male Patient Care team information Personnel Name: Arya Mercado MD Address: Address: [address] [place] [address] [place], [place] [address]
--- OUTSIDE RECORDS SUMMARY | 2023-10-28 19:17 | XMS_ITS | Continuity of Care Document ---
Author Name Unknown Organization [facility] Address [address] [place] [address]- Care Team Providers Care Outsole Caser Name Role Phone Arya Mercado MD Primary Care Physician [phone] [facility] Date(s): 03/21/23 - 04/20/23 [facility] [address] [place], [place] [address] Attending Physician: Collette Castillo Admitting Physician: AdmCollette villalba Referring Physician: AdmtrCollette Allergies, Adverse Reactions, Alerts Substance Reaction Severity Status Latex Active metFORMIN lightheadedness GI symptoms Active Immunizations Given and Recorded Vaccine Date Status Refusal Reason tetanus/diphtheria/pertussis, acel(Tdap) 09/11/22 Given tetanus/diphtheria/pertussis, acel(Tdap) 1 04/04/12 Given [id number] 12y+ bivalent booster vax 08/24/22 Recorded influenza [...] inactivated 5 07/31/12 Gi rojelio SARS-CoV-2 mRNA (qcktxfd-[id number]) vax 03/08/22 Recorded zoster vaccine, inactivated 01/31/22 Recorded zoster vaccine, inactivated 08/02/21 Recorded SARS-CoV-2 (COVID-19) mRNA BNT-162b2 vac 10/29/21 Recorded SARS-CoV-2 (COVID-19) mRNA BNT-162b2 vac 02/17/21 Recorded SARS-CoV-2 (COVID-19) mRNA BNT-162b2 vac 01/27/21 Recorded pneumococcal 23-valent vaccine 6 06/05/12 Given 1Admin Note: VIS 11/23 2Location History: [facility] 3Admin Note: [facility] [id number] 4Admin Note: Administered at [facility] [place] 5Admin Note: given at [facility] 6Admin Note: VIS 08/20 [...] tablet, 5 Refills, Maintenance, 02/06/23 18:11:00 EDT, [facility] #[id number], Partial fill upon patient request if the prescription is for a schedule II opioid drug., 160, cm,... Start Date: 02/06/23 Status: Ordered Allergy (Loratadine) 10 mg oral tablet 1 tablet = 10 mg, By Mouth, Daily, # 30 tablet, 2 Refills, Maintenance, 05/07/20 10:50:00 EDT, Tablet, [facility] #[id number], 162, cm, 05/07/20 8:55:00 EDT, Height Start Date: 05/07/20 Status: Ordered atorvastatin 40 mg oral tablet 1 tablet = 40 mg, By Mouth, Daily, # 90 tablet, 1 Refills, Maintenance, 01/05/23 9:28:00 EST, Tablet, [facility] #[id number], 160, cm, 01/04/23 8:32:00 EST, Height Start Date: 01/05/23 Status: Ordered bacitracin topical 500 u/gm ointment 1 application, Topically, 4 times a day, # 30 Gm, 0 Refills, Maintenance, 05/07/20 10:55:00 EDT, Ointment, [facility] #[id number], 1 application Topically 4 times a day,x7 [...] 0 Refills, Maintenance, 11/03/22 14:34:00 EST, Capsule, [facility] #[id number], Partial fill upon patient request if the prescription is for a schedule II opioid drug., 160,... Start Date: 11/03/22 Stop Date: 11/10/22 Status: Ordered diclofenac 1% topical gel 1 application, Topically, 4 times a day, # 100 Gm, 4 Refills, Maintenance, 11/03/22 14:30:00 EST, Gel, [facility] #[id number], 160, cm, 11/03/22 13:45:00 EST, Height Start Date: 11/03/22 Status: Ordered Flonase 50 mcg/inh nasal spray 1 sprays, Nares, Both, 2 times a day, PRN Congestion, # 16 Gm, 7 Refills, Maintenance, 05/07/20 10:48:00 EDT, [place], [facility] #[id number], 1 sprays Nares, Both 2 times a day,PRN:Congestion, 162, cm, 05/07/20 8:55:00 EDT, Height Start Date: 05/07/20 Status: Ordered FLUoxetine 20 mg oral capsule via psychiatry, Refills 0, Maintenance, 08/11/20 13:38:00 EDT Start Date: 08/11/20 Status: Ordered lidocaine 5% topical film 1 patch, Topically, Daily, PRN Pain , Mild, remove after 12 hours, # 13 each, 5 Refills, Maintenance, 01/24/21 11:13:00 EDT, [place], [facility] #[id number], Partial fill upon patient request if the prescription is for a schedule II opioid drug., 1... Start Date: 01/24/21 Status: Ordered losartan 25 mg oral tablet 1 tablet, By Mouth, Daily, # 90 tablet, 1 Refills, Maintenance, 02/13/23 8:27:00 EDT, [facility] #[id number], 160, cm, 01/09/23 10:35:00 EST, Height Start [...] tablet by mouth, 1 hour before sexual activity may use 1 x day prn, # 15each, 0 Refills, Maintenance, 03/22/23 17:32:00 EDT, [facility] #[id number], Partial fill upon patient request if the prescription is for a schedule... Start Date: 03/22/23 Status: Ordered traZODone 100 mg oral tablet [...] Confirmed Active Osteoarthritis Confirmed Active BHN/CCA/CLARA-Janelle Antoine [phone]/Health group home active care coordination Confirmed Active [...] Personnel Name: Rogelio NUNEZ, Arya Tompkins Position: S Resident Member Role: PCP Address: Address: [address] [place] [address] [place] [address]- Care Team Related Persons Name: SAMANTHA DAILY Name: EDUARDO DUNBAR Address: home [address] [place] [address]
--- OUTSIDE RECORDS SUMMARY | 2023-10-28 19:17 | XMS_ITS | Continuity of Care Document ---
Author Name Unknown Organization [facility] Address [address] [place] [address]- Care Team Providers Care Compensation Analyst Name Role Phone Rogelio NUNEZ, Arya Tompkins Primary Care Physician [phone] Encounter [facility] Date(s): 11/23/22 - 01/23/[address] [address]- Encounter Diagnosis Primary osteoarthritis, right hand(Final) - Discharge Disposition: A-D/C Home Attending Physician: Elham Delgado MD Admitting Physician: Elham Delgado MD Referring Physician: Karolina Murdock DO Allergies, Adverse Reactions, Alerts Substance Reaction Severity Status Latex Active metFORMIN lightheadedness GI symptoms Active Immunizations Given and Recorded Vaccine Date Status Refusal Reason tetanus/diphtheria/pertussis, acel(Tdap) 09/11/22 Given tetanus/diphtheria/pertussis, acel(Tdap) 1 04/04/12 Given [id number] 12y+ bivalent booster vax 08/24/22 Recorded influenza [...] inactivated 5 07/31/12 Gi rojelio SARS-CoV-2 mRNA (aumeaxu-[id number]-tjmug) vax 03/08/22 Recorded zoster vaccine, inactivated 01/31/22 Recorded zoster vaccine, inactivated 08/02/21 Recorded SARS-CoV-2 (COVID-19) mRNA BNT-162b2 vac 10/29/21 Recorded SARS-CoV-2 (COVID-19) mRNA BNT-162b2 vac 02/17/21 Recorded SARS-CoV-2 (COVID-19) mRNA BNT-162b2 vac 01/27/21 Recorded pneumococcal 23-valent vaccine 6 06/05/12 Given 1Admin Note: VIS 11/23 2Location History: [facility] 3Admin Note: [facility] [id number] 4Admin Note: Administered at [facility] [place] 5Admin Note: given at [facility] 6Admin Note: VIS 08/20 Medications 3 [...] tablet, 3 Refills, Maintenance, 11/03/22 16:19:00 EST, [facility] #[id number], Partial fill upon patient request if the prescription is for a schedule II opioid drug., 160, cm... Start Date: 11/03/22 Status: Ordered Allergy (Loratadine) 10 mg oral tablet 1 tablet = 10 mg, By Mouth, Daily, # 30 tablet, 2 Refills, Maintenance, 05/07/20 10:50:00 EDT, Tablet, [facility] #[id number], 162, cm, 05/07/20 8:55:00 EDT, Height Start Date: 05/07/20 Status: Ordered aspirin 81 mg oral delayed release tablet 81 mg, 1, tablet, By Mouth, Daily, # 90 tablet, Refills 7, Tot. Refills 7, Maintenance, 10/21/20 15:17:00 EST, Route to Pharmacy Electronically, [facility] #[id number], 162, cm, 08/24/20 12:57:00 EDT, Height, 101.4, kg, 08/07/20 16:24:00 EDT, Dry... Start Date: 10/21/20 Status: Ordered atorvastatin 40 mg oral tablet 1 tablet = 40 mg, By Mouth, Daily, # 90 tablet, 1 Refills, Maintenance, 01/05/23 9:28:00 EST, Tablet, [facility] #[id number], 160, cm, 01/04/23 8:32:00 EST, Height Start Date: 01/05/23 Status: Ordered bacitracin topical 500 u/gm ointment 1 application, Topically, 4 times a day, # 30 Gm, 0 Refills, Maintenance, 05/07/20 10:55:00 EDT, Ointment, [facility] #[id number], 1 application Topically 4 times a day,x7 [...] 0 Refills, Maintenance, 11/03/22 14:34:00 EST, Capsule, [facility] #[id number], Partial fill upon patient request if the prescription is for a schedule II opioid drug., 160,... Start Date: 11/03/22 Stop Date: 11/10/22 Status: Ordered diclofenac 1% topical gel 1 application, Topically, 4 times a day, # 100 Gm, 4 Refills, Maintenance, 11/03/22 14:30:00 EST, Gel, [facility] #[id number], 160, cm, 11/03/22 13:45:00 EST, Height Start Date: 11/03/22 Status: Ordered Flonase 50 mcg/inh nasal spray 1 sprays, Nares, Both, 2 times a day, PRN Congestion, # 16 Gm, 7 Refills, Maintenance, 05/07/20 10:48:00 EDT, [place], [facility] #[id number], 1 sprays Nares, Both 2 times a day,PRN:Congestion, 162, cm, 05/07/20 8:55:00 EDT, Height Start Date: 05/07/20 Status: Ordered FLUoxetine 20 mg oral capsule via psychiatry, Refills 0, Maintenance, 08/11/20 13:38:00 EDT Start Date: 08/11/20 Status: Ordered lidocaine 5% topical film 1 patch, Topically, Daily, PRN Pain , Mild, remove after 12 hours, # 13 each, 5 Refills, Maintenance, 01/24/21 11:13:00 EDT, [place], [email or web address] #[id number], Partial fill upon patient request if the prescription is for a schedule II opioid drug., 1... Start Date: 01/24/21 Status: Ordered losartan 25 mg oral tablet 25 mg, 1, tablet, By Mouth, Daily, # 90 tablet, Refills 1, Tot. Refills 1, Maintenance, 10/23/22 11:41:00 EST, Route to Pharmacy Electronically, [facility] #[id number], 160, cm, 08/24/22 16:58:00 EDT, Height Start [...] Confirmed Active Osteoarthritis Confirmed Active BHN/CCA/CLARA-Janelle Antoine [phone]/Health [facility]p active care coordination Confirmed Active Severe obesity (BMI 35.0-39.9) with comorbidity Confirmed Active 1followed by Dr. Dalton Box. and therapist. 2inertal and external on 2017 colonoscopy Social History Social History Type Response Smoking Status Former smoker; Other : quit per pt 03/08/18; entered on: 03/08/18 Sex Male Patient Care team information Care Team Personnel Name: Rogelio NUNEZ, Arya Tompkins Position: [facility] Resident Member Role: PCP Address: Address: [address] [place] [address] Care Team Related Persons Name: SAMANTHA DAILY Name: EDUARDO DUNBAR Address: home [address] [place] [address]
--- OUTSIDE RECORDS SUMMARY | 2023-10-28 19:17 | XMS_ITS | Continuity of Care Document ---
Author Name Unknown Organization [facility] Address [address] [place] [address]- Care Team Providers Care Crane Ladle Person Name Role Phone Rogelio NUNEZ, Arya Tompkins Primary Care Physician [facility] Date(s): 01/08[facility]23 - 02/07/23 [facility] [address] [place] [address] Allergies, Adverse Reactions, Alerts Substance Reaction Severity Status Latex Active metFORMIN lightheadedness GI symptoms Active Immunizations Given and Recorded Vaccine Date Status Refusal Reason tetanus/diphtheria/pertussis, acel(Tdap) 09/11/22 Given tetanus/diphtheria/pertussis, acel(Tdap) 1 04/04/12 Given [id number] 12y+ bivalent booster vax 08/24/22 Recorded influenza [...] inactivated 5 07/31/12 Gi rojelio SARS-CoV-2 mRNA (neqsqmf-lkfl-motjs) vax 03/08/22 Recorded zoster vaccine, inactivated 01/31/22 Recorded zoster vaccine, inactivated 08/02/21 Recorded SARS-CoV-2 (COVID-19) mRNA BNT-162b2 vac 10/29/21 Recorded SARS-CoV-2 (COVID-19) mRNA BNT-162b2 vac 02/17/21 Recorded SARS-CoV-2 (COVID-19) mRNA BNT-162b2 vac 01/27/21 Recorded pneumococcal 23-valent vaccine 6 06/05/12 Given 1Admin Note: VIS 11/23 2Location History: [facility] 3Admin Note: [facility] [id number] 4Admin Note: Administered at [facility] [place] 5Admin Note: given at [place] [facility] 6Admin Note: VIS 08/20 Medications [...] tablet, 5 Refills, Maintenance, 02/06/23 18:11:00 EDT, [facility] #[id number], Partial fill upon patient request if the prescription is for a schedule II opioid drug., 160, cm,... Start Date: 02/06/23 Status: Ordered Allergy (Loratadine) 10 mg oral tablet 1 tablet = 10 mg, By Mouth, Daily, # 30 tablet, 2 Refills, Maintenance, 05/07/20 10:50:00 EDT, Tablet, [facility] #[id number], 162, cm, 05/07/20 8:55:00 EDT, Height Start Date: 05/07/20 Status: Ordered aspirin 81 mg oral delayed release tablet 81 mg, 1, tablet, By Mouth, Daily, # 90 tablet, Refills 7, Tot. Refills 7, Maintenance, 10/21/20 15:17:00 EST, Route to Pharmacy Electronically, [facility] #[id number], 162, cm, 08/24/20 12:57:00 EDT, Height, 101.4, kg, 08/07/20 16:24:00 EDT, Dry... Start Date: 10/21/20 Status: Ordered atorvastatin 40 mg oral tablet 1 tablet = 40 mg, By Mouth, Daily, # 90 tablet, 1 Refills, Maintenance, 01/05/23 9:28:00 EST, Tablet, [facility] #[id number], 160, cm, 01/04/23 8:32:00 EST, Height Start Date: 01/05/23 Status: Ordered bacitracin topical 500 u/gm ointment 1 application, Topically, 4 times a day, # 30 Gm, 0 Refills, Maintenance, 05/07/20 10:55:00 EDT, Ointment, [facility] #[id number], 1 application Topically 4 times a day,x7 [...] 0 Refills, Maintenance, 11/03/22 14:34:00 EST, Capsule, [facility] #38051, Partial fill upon patient request if the prescription is for a schedule II opioid drug., 160,... Start Date: 11/03/22 Stop Date: 11/10/22 Status: Ordered diclofenac 1% topical gel 1 application, Topically, 4 times a day, # 100 Gm, 4 Refills, Maintenance, 11/03/22 14:30:00 EST, Gel, [facility] #[id number], 160, cm, 11/03/22 13:45:00 EST, Height Start Date: 11/03/22 Status: Ordered Flonase 50 mcg/inh nasal spray 1 sprays, Nares, Both, 2 times a day, PRN Congestion, # 16 Gm, 7 Refills, Maintenance, 05/07/20 10:48:00 EDT, [place], [facility] #[id number], 1 sprays Nares, Both 2 times a day,PRN:Congestion, 162, cm, 05/07/20 8:55:00 EDT, Height Start Date: 05/07/20 Status: Ordered FLUoxetine 20 mg oral capsule via psychiatry, Refills 0, Maintenance, 08/11/20 13:38:00 EDT Start Date: 08/11/20 Status: Ordered lidocaine 5% topical film 1 patch, Topically, Daily, PRN Pain , Mild, remove after 12 hours, # 13 each, 5 Refills, Maintenance, 01/24/21 11:13:00 EDT, [place], [facility] #[id number], Partial fill upon patient request if the prescription is for a schedule II opioid drug., 1... Start Date: 01/24/21 Status: Ordered losartan 25 mg oral tablet 25 mg, 1, tablet, By Mouth, Daily, # 90 tablet, Refills 1, Tot. Refills 1, Maintenance, 10/23/22 11:41:00 EST, Route to Pharmacy Electronically, [facility] #[id number], 160, cm, 08/24/22 16:58:00 EDT, Height Start [...] Confirmed Active Osteoarthritis Confirmed Active BHN/CCA/CLARA-Janelle Antoine [phone]/Health long term active care coordination Confirmed Active Severe obesity (BMI 35.0-39.9) with comorbidity Confirmed Active 1followed by Dr. Dalton Box. and therapist. 2inertal and external on 2017 colonoscopy Social History Social History Type Response Smoking Status Former smoker; Other : quit per pt 03/08/18; entered on: 03/08/18 Sex Male Patient Care team information Care Team Personnel Name: Arya Mercado MD Position: [facility] Resident Member Role: PCP Address: Address: [address] [place] [address] [place] [address]- Care Team Related Persons Name: SAMANTHA DAILY Name: EDUARDO DUNBAR Address: home [address] [place] [address]
--- OUTSIDE RECORDS SUMMARY | 2023-10-28 19:17 | XMS_ITS | Continuity of Care Document ---
Author Name Unknown Organization [facility] Address [address] [place] [address]- Care Team Providers Care Paint Stock Clerk Name Role Phone Rogelio NUNEZ, Arya Tompkins Primary Care Physician Encounter [facility] Date(s): 03/06/23 - 05/17/[address] [address]- Attending Physician: Shant Caballero OD Admitting Physician: Shant Caballero OD Allergies, Adverse Reactions, Alerts Substance Reaction Severity Status Latex Active metFORMIN lightheadedness GI symptoms Active Immunizations Given and Recorded Vaccine Date Status Refusal Reason tetanus/diphtheria/pertussis, acel(Tdap) 09/11/22 Given tetanus/diphtheria/pertussis, acel(Tdap) 1 04/04/12 Given [id number] 12y+ bivalent booster vax 08/24/22 Recorded influenza [...] inactivated 5 07/31/12 Gi rojelio SARS-CoV-2 mRNA (akkmqnc-rmhu-ncmws) vax 03/08/22 Recorded zoster vaccine, inactivated 01/31/22 Recorded zoster vaccine, inactivated 08/02/21 Recorded SARS-CoV-2 (COVID-19) mRNA BNT-162b2 vac 10/29/21 Recorded SARS-CoV-2 (COVID-19) mRNA BNT-162b2 vac 02/17/21 Recorded SARS-CoV-2 (COVID-19) mRNA BNT-162b2 vac 01/27/21 Recorded pneumococcal 23-valent vaccine 6 06/05/12 Given 1Admin Note: VIS 11/23 2Location History: [facility] 3Admin Note: [facility] [id number] 4Admin Note: Administered at [facility] [place] 5Admin Note: given at [facility] 6Admin Note: VIS 08/20 Medications [...] tablet, 5 Refills, Maintenance, 02/06/23 18:11:00 EDT, [facility] #[id number], Partial fill upon patient request if the prescription is for a schedule II opioid drug., 160, cm,... Start Date: 02/06/23 Status: Ordered Allergy (Loratadine) 10 mg oral tablet 1 tablet = 10 mg, By Mouth, Daily, # 30 tablet, 2 Refills, Maintenance, 05/07/20 10:50:00 EDT, Tablet, [facility] #[id number], 162, cm, 05/07/20 8:55:00 EDT, Height Start Date: 05/07/20 Status: Ordered atorvastatin 40 mg oral tablet 1 tablet = 40 mg, By Mouth, Daily, # 90 tablet, 1 Refills, Maintenance, 01/05/23 9:28:00 EST, Tablet, [facility] #95570, 160, cm, 01/04/23 8:32:00 EST, Height Start Date: 01/05/23 Status: Ordered bacitracin topical 500 u/gm ointment 1 application, Topically, 4 times a day, # 30 Gm, 0 Refills, Maintenance, 05/07/20 10:55:00 EDT, Ointment, [facility] #62062, 1 application Topically 4 times a day,x7 [...] 0 Refills, Maintenance, 11/03/22 14:34:00 EST, Capsule, [facility] #64963, Partial fill upon patient request if the prescription is for a schedule II opioid drug., 160,... Start Date: 11/03/22 Stop Date: 11/10/22 Status: Ordered diclofenac 1% topical gel 1 application, Topically, 4 times a day, # 100 Gm, 4 Refills, Maintenance, 11/03/22 14:30:00 EST, Gel, [facility] #10300, 160, cm, 11/03/22 13:45:00 EST, Height Start Date: 11/03/22 Status: Ordered Flonase 50 mcg/inh nasal spray 1 sprays, Nares, Both, 2 times a day, PRN Congestion, # 16 Gm, 7 Refills, Maintenance, 05/07/20 10:48:00 EDT, [place], [facility] #94386, 1 sprays Nares, Both 2 times a day,PRN:Congestion, 162, cm, 05/07/20 8:55:00 EDT, Height Start Date: 05/07/20 Status: Ordered FLUoxetine 20 mg oral capsule via psychiatry, Refills 0, Maintenance, 08/11/20 13:38:00 EDT Start Date: 08/11/20 Status: Ordered lidocaine 5% topical film 1 patch, Topically, Daily, PRN Pain , Mild, remove after 12 hours, # 13 each, 5 Refills, Maintenance, 01/24/21 11:13:00 EDT, [place], [facility] #[id number], Partial fill upon patient request if the prescription is for a schedule II opioid drug., 1... Start Date: 01/24/21 Status: Ordered losartan 25 mg oral tablet 1 tablet, By Mouth, Daily, # 90 tablet, 1 Refills, Maintenance, 02/13/23 8:27:00 EDT, [facility] #[id number], 160, cm, 01/09/23 10:35:00 EST, Height Start [...] Confirmed Active Osteoarthritis Confirmed Active BHN/CCA/CLARA-Janelle Antoine [phone]/[facility] active care coordination Confirmed Active Severe obesity (BMI 35.0-39.9) with comorbidity Confirmed Active 1followed by Dr. Dalton Box. and therapist. 2inertal and external on 2017 colonoscopy Social History Social History Type Response Smoking Status Former smoker; Other : quit per pt 03/08/18; entered on: 03/08/18 Sex Male Patient Care team information Care Team Personnel Name: Rogelio NUNEZ, Arya Tompkins Position: [facility] Resident Member Role: PCP Address: Address: [address] [place] [address] [place] [address]- Care Team Related Persons Name: SAMANTHA DAILY Name: EDUARDO DUNBAR Address: home [address] [place] [address]
--- OUTSIDE RECORDS SUMMARY | 2023-10-28 19:17 | XMS_ITS | Continuity of Care Document ---
Author Name Unknown Organization [facility] Address [address] [place] [address]- Care Team Providers Care Sight Effects Specialist Name Role Phone Opal NUNEZ, Emily Powell Primary Care Physician Encounter [facility] Date(s): 02/16/21 - 03/18/[address] [address] Attending Physician: AdmCollette villalba Admitting Physician: AdmtrCollette Referring Physician: Admtr, Ar8 [...] tetanus/diphtheria/pertussis, acel(Tdap) 6 04/04/12 Given 1Location History: [facility] 2Admin Note: [facility] [id number] 3Admin Note: Administered at [facility] in [place] 4Admin Note: given at [facility] 5Admin Note: VIS 08/20 6Admin Note: [...] 2 Refills, Maintenance, 05/07/20 10:50:00 EDT, Tablet, [facility] #[id number], 162, cm, 05/07/20 8:55:00 EDT, Height Start Date: 05/07/20 Status: Ordered aspirin 81 mg oral delayed release tablet 81 mg, 1, tablet, By Mouth, Daily, # 90 tablet, Refills 7, Tot. Refills 7, Maintenance, 10/21/20 15:17:00 EST, Route to Pharmacy Electronically, [facility] #29011, 162, cm, 08/24/20 12:57:00 EDT, Height, 101.4, kg, 08/07/20 16:24:00 EDT, Dry... Start Date: 10/21/20 Status: Ordered atorvastatin 40 mg oral tablet 1 tablet = 40 mg, By Mouth, Daily, # 90 tablet, 1 Refills, Maintenance, 03/09/21 14:32:00 EDT, Tablet, [facility] #49365, 160, cm, 01/10/21 14:43:00 EST, Height, 101.4, kg, 08/07/20 16:24:00 EDT, Dry Weight Start Date: 03/09/21 Status: Ordered bacitracin topical 500 u/gm ointment 1 application, Topically, 4 times a day, # 30 Gm, 0 Refills, Maintenance, 05/07/20 10:55:00 EDT, Ointment, [facility] #24501, 1 application Topically 4 times a day,x7 [...] 1 Refills, Maintenance, 03/09/21 14:32:00 EDT, Gel, [facility] #25368, 160, cm, 01/10/21 14:43:00 EST, Height, 101.4, kg, 08/07/20 16:24:00 EDT, Dry Weight Start Date: 03/09/21 Status: Ordered Flonase 50 mcg/inh nasal spray 1 sprays, Nares, Both, 2 times a day, PRN Congestion, # 16 Gm, 7 Refills, Maintenance, 05/07/20 10:48:00 EDT, [place], [facility] #95796, 1 sprays Nares, Both 2 times a [...] 5 Refills, Maintenance, 01/24/21 11:13:00 EDT, Film, [facility] #08747, Partial fill upon patient request if the prescription is for a schedule II opioid drug., 1... Start Date: 01/24/21 Status: Ordered losartan 25 mg oral tablet 25 mg, 1, tablet, By Mouth, Daily, # 90 tablet, Refills 7, Tot. Refills 7, Maintenance, 10/21/20 15:16:00 EST, Route to Pharmacy Electronically, [facility] #[id number], 162, cm, 08/24/20 12:57:00 EDT, Height, 101.4, kg, 08/07/20 16:24:00 EDT, Dry... Start Date: 10/21/20 Stop Date: 10/11/22 Status: Ordered omeprazole 20 mg oral enteric coated capsule 1 capsule = 20 mg, By Mouth, Daily, # 30 capsule, 2 Refills, Maintenance, 02/22/21 11:07:00 EDT, ECCapsule, [facility] #95347, Partial fill upon patient request if the [...] 7:44:00 EDT, 01/20/21 7:44:00 EST, ER Tablet, [facility] #33348, Partialfill upon patient request if the prescription [...] diabetes mellitus(Confirmed) Active Hypertension(Confirmed) Active Obesity(Confirmed) Active BHN/CCA/CP-Janelle Arash [phone]/Health [facility] active care coordination(Confirmed) Active 1followed by Dr. Dalton Box. and therapist. 2inertal and external on 2017 colonoscopy Social History Social History Type Response Smoking Status Former smoker; Other : quit per pt 03/08/18; entered on: 03/08/18 Sex Male
--- OUTSIDE RECORDS SUMMARY | 2023-10-28 19:17 | XMS_ITS | Continuity of Care Document ---
Author Name Unknown Organization [facility] Address [address] [place] [address]- Care Team Providers Care Accounting Instructor Name Role Phone Arya Mercado MD Primary Care Physician Encounter [facility] Date(s): 01/23/23 - 02/22/23 [facility] [address] [place], [place] [address] Allergies, Adverse Reactions, Alerts Substance Reaction Severity Status Latex Active metFORMIN lightheadedness GI symptoms Active Immunizations Given and Recorded Vaccine Date Status Refusal Reason tetanus/diphtheria/pertussis, acel(Tdap) 09/11/22 Given tetanus/diphtheria/pertussis, acel(Tdap) 1 04/04/12 Given [id number] 12y+ bivalent booster vax 08/24/22 Recorded influenza [...] inactivated 5 07/31/12 Gi rojelio SARS-CoV-2 mRNA (lfxnpad-qxdy-cavyi) vax 03/08/22 Recorded zoster vaccine, inactivated 01/31/22 Recorded zoster vaccine, inactivated 08/02/21 Recorded SARS-CoV-2 (COVID-19) mRNA BNT-162b2 vac 10/29/21 Recorded SARS-CoV-2 (COVID-19) mRNA BNT-162b2 vac 02/17/21 Recorded SARS-CoV-2 (COVID-19) mRNA BNT-162b2 vac 01/27/21 Recorded pneumococcal 23-valent vaccine 6 06/05/12 Given 1Admin Note: VIS 11/23 2Location History: [facility] 3Admin Note: [facility] [id number] 4Admin Note: Administered at [facility] 5Admin Note: given at [facility] 6Admin Note: VIS 08/20 Medications 3 pair [...] tablet, 5 Refills, Maintenance, 02/06/23 18:11:00 EDT, [facility] #[id number], Partial fill upon patient request if the prescription is for a schedule II opioid drug., 160, cm,... Start Date: 02/06/23 Status: Ordered Allergy (Loratadine) 10 mg oral tablet 1 tablet = 10 mg, By Mouth, Daily, # 30 tablet, 2 Refills, Maintenance, 05/07/20 10:50:00 EDT, Tablet, [facility] #[id number], 162, cm, 05/07/20 8:55:00 EDT, Height Start Date: 05/07/20 Status: Ordered aspirin 81 mg oral delayed release tablet 81 mg, 1, tablet, By Mouth, Daily, # 90 tablet, Refills 7, Tot. Refills 7, Maintenance, 10/21/20 15:17:00 EST, Route to Pharmacy Electronically, [facility] #[id number], 162, cm, 08/24/20 12:57:00 EDT, Height, 101.4, kg, 08/07/20 16:24:00 EDT, Dry... Start Date: 10/21/20 Status: Ordered atorvastatin 40 mg oral tablet 1 tablet = 40 mg, By Mouth, Daily, # 90 tablet, 1 Refills, Maintenance, 01/05/23 9:28:00 EST, Tablet, [facility] #41068, 160, cm, 01/04/23 8:32:00 EST, Height Start Date: 01/05/23 Status: Ordered bacitracin topical 500 u/gm ointment 1 application, Topically, 4 times a day, # 30 Gm, 0 Refills, Maintenance, 05/07/20 10:55:00 EDT, Ointment, [facility] #99163, 1 application Topically 4 times a day,x7 [...] 0 Refills, Maintenance, 11/03/22 14:34:00 EST, Capsule, [facility] #56483, Partial fill upon patient request if the prescription is for a schedule II opioid drug., 160,... Start Date: 11/03/22 Stop Date: 11/10/22 Status: Ordered diclofenac 1% topical gel 1 application, Topically, 4 times a day, # 100 Gm, 4 Refills, Maintenance, 11/03/22 14:30:00 EST, Gel, [facility] #48707, 160, cm, 11/03/22 13:45:00 EST, Height Start Date: 11/03/22 Status: Ordered Flonase 50 mcg/inh nasal spray 1 sprays, Nares, Both, 2 times a day, PRN Congestion, # 16 Gm, 7 Refills, Maintenance, 05/07/20 10:48:00 EDT, [place], [facility] #29283, 1 sprays Nares, Both 2 times a day,PRN:Congestion, 162, cm, 05/07/20 8:55:00 EDT, Height Start Date: 05/07/20 Status: Ordered FLUoxetine 20 mg oral capsule via psychiatry, Refills 0, Maintenance, 08/11/20 13:38:00 EDT Start Date: 08/11/20 Status: Ordered lidocaine 5% topical film 1 patch, Topically, Daily, PRN Pain , Mild, remove after 12 hours, # 13 each, 5 Refills, Maintenance, 01/24/21 11:13:00 EDT, Film, [facility] #36391, Partial fill upon patient request if the prescription is for a schedule II opioid drug., 1... Start Date: 01/24/21 Status: Ordered losartan 25 mg oral tablet 1 tablet, By Mouth, Daily, # 90 tablet, 1 Refills, Maintenance, 02/13/23 8:27:00 EDT, [facility] #06093, 160, cm, 01/09/23 10:35:00 EST, Height Start [...] each, 0 Refills, Maintenance, 02/15/23 18:19:00 EDT, [facility] #44684, Partial fill upon patient request if the [...] Confirmed Active Osteoarthritis Confirmed Active N/CCA/Omid Antoine [phone]/Health shelter active care coordination Confirmed Active Severe obesity [...] S Resident Member Role: PCP Address: Address: [address] [place] [address] [place] [address]- Care Team Related Persons Name: SAMANTHA DAILY Name: EDUARDO DUNBAR Address: home [address] [place] [address]
--- OUTSIDE RECORDS SUMMARY | 2023-10-28 19:17 | XMS_ITS | Continuity of Care Document ---
Author Name Unknown Organization [facility] Address [address] [place] [address]- Care Team Providers Care Print Line Feeder Name Role Phone Opal NUNEZ, Emily Powell Primary Care Physician Encounter [facility] Date(s): 02/21/21 - 03/23/21 [facility] [address] [place] [id number] Allergies, Adverse Reactions, Alerts Substance Reaction [...] tetanus/diphtheria/pertussis, acel(Tdap) 6 04/04/12 [facility] 2Admin Note: [facility] [id number] 3Admin Note: Administered at [facility] [place] 4Admin Note: given at [facility] 5Admin Note: VIS 08/20 6Admin Note: [...] 2 Refills, Maintenance, 05/07/20 10:50:00 EDT, Tablet, [facility] #[id number], 162, cm, 05/07/20 8:55:00 EDT, Height Start Date: 05/07/20 Status: Ordered aspirin 81 mg oral delayed release tablet 81 mg, 1, tablet, By Mouth, Daily, # 90 tablet, Refills 7, Tot. Refills 7, Maintenance, 10/21/20 15:17:00 EST, Route to Pharmacy Electronically, [facility] #[id number], 162, cm, 08/24/20 12:57:00 EDT, Height, 101.4, kg, 08/07/20 16:24:00 EDT, Dry... Start Date: 10/21/20 Status: Ordered atorvastatin 40 mg oral tablet 1 tablet = 40 mg, By Mouth, Daily, # 90 tablet, 1 Refills, Maintenance, 03/09/21 14:32:00 EDT, Tablet, [facility] #03657, 160, cm, 01/10/21 14:43:00 EST, Height, 101.4, kg, 08/07/20 16:24:00 EDT, Dry Weight Start Date: 03/09/21 Status: Ordered bacitracin topical 500 u/gm ointment 1 application, Topically, 4 times a day, # 30 Gm, 0 Refills, Maintenance, 05/07/20 10:55:00 EDT, Ointment, [facility] #31882, 1 application Topically 4 times a day,x7 [...] 1 Refills, Maintenance, 03/09/21 14:32:00 EDT, Gel, [facility] #32724, 160, cm, 01/10/21 14:43:00 EST, Height, 101.4, kg, 08/07/20 16:24:00 EDT, Dry Weight Start Date: 03/09/21 Status: Ordered Flonase 50 mcg/inh nasal spray 1 sprays, Nares, Both, 2 times a day, PRN Congestion, # 16 Gm, 7 Refills, Maintenance, 05/07/20 10:48:00 EDT, [place], [facility] #[id number], 1 sprays Nares, Both 2 times a [...] 5 Refills, Maintenance, 01/24/21 11:13:00 EDT, Film, [facility] #[id number], Partial fill upon patient request if the prescription is for a schedule II opioid drug., 1... Start Date: 01/24/21 Status: Ordered losartan 25 mg oral tablet 25 mg, 1, tablet, By Mouth, Daily, # 90 tablet, Refills 7, Tot. Refills 7, Maintenance, 10/21/20 15:16:00 EST, Route to Pharmacy Electronically, [facility] #[id number], 162, cm, 08/24/20 12:57:00 EDT, Height, 101.4, kg, 08/07/20 16:24:00 EDT, Dry... Start Date: 10/21/20 Stop Date: 10/11/22 Status: Ordered meloxicam 15 mg oral tablet 1 tablet = 15 mg, By Mouth, Daily, # 14 tablet, 0 Refills, Maintenance, 03/23/21 10:46:00 EDT, Tablet, [facility] #37813, Partial fill upon patient request if the prescription is for a schedule II opioid drug., 160, cm, 03/23/21 10:12:00 EDT... Start Date: 03/23/21 Stop Date: 04/06/21 Status: Ordered omeprazole 20 mg oral enteric coated capsule 1 capsule = 20 mg, By Mouth, Daily, # 30 capsule, 2 Refills, Maintenance, 02/22/21 11:07:00 EDT, ECCapsule, [facility] #[id number], Partial fill upon patient request if the [...] 7:44:00 EDT, 01/20/21 7:44:00 EST, ER Tablet, [facility] #[id number], Partialfill upon patient request if the prescription is fo... Start Date: 01/20/21 Stop Date: 05/20/21 Status: Ordered Voltaren 1% topical gel 1 application, Topically, 4 times a day, # 100 Gm, 4 Refills, Maintenance, 03/23/21 10:48:00 EDT, [facility] #[id number], Partial fill upon patient request if the [...] Active Hypertension(Confirmed) Active Obesity(Confirmed) Active BHN/CCA/CLARA-Janelle Antoine [phone]/Health [facility] active care coordination(Confirmed) Active 1followed by Dr. Dalton Box. and therapist. 2inertal and external on 2016 colonoscopy Social History Social History Type Response Smoking Status Former smoker; Other : quit per pt 03/08/18; entered on: 03/08/18 Sex Male
--- OUTSIDE RECORDS SUMMARY | 2023-10-28 19:17 | XMS_ITS | Continuity of Care Document ---
Author Name Unknown Organization [facility] Address [address] [place] [address]- Care Team Providers Care Asp Developer Name Role Phone Opal NUNEZ, Emily Powell Primary Care Physician Encounter [facility] Date(s): 01/24/21 - 02/23/21 [facility] [address] [place] [address] [address] Allergies, Adverse Reactions, Alerts Substance [...] History: [facility] 2Admin Note: [facility] [id number] 3Admin Note: Administered at [facility] [place] 4Admin Note: given at [facility] 5Admin Note: VIS 08/20 6Admin [...] 2 Refills, Maintenance, 05/07/20 10:50:00 EDT, Tablet, [facility] #96929, 162, cm, 05/07/20 8:55:00 EDT, Height Start Date: 05/07/20 Status: Ordered aspirin 81 mg oral delayed release tablet 81 mg, 1, tablet, By Mouth, Daily, # 90 tablet, Refills 7, Tot. Refills 7, Maintenance, 10/21/20 15:17:00 EST, Route to Pharmacy Electronically, [facility] #[id number], 162, cm, 08/24/20 12:57:00 EDT, Height, 101.4, kg, 08/07/20 16:24:00 EDT, Dry... Start Date: 10/21/20 Status: Ordered atorvastatin 40 mg oral tablet 1 tablet = 40 mg, By Mouth, Daily, # 90 tablet, 3 Refills, Maintenance, 07/26/20 17:31:00 EDT, Tablet, [facility] #62087, 162, cm, 05/07/20 8:55:00 EDT, Height Start Date: 07/26/20 Status: Ordered bacitracin topical 500 u/gm ointment 1 application, Topically, 4 times a day, # 30 Gm, 0 Refills, Maintenance, 05/07/20 10:55:00 EDT, Ointment, [facility] #[id number], 1 application Topically 4 times a day,x7 [...] 2 Refills, Maintenance, 11/23/20 18:40:00 EST, Gel, [facility] #79393, 160, cm, 11/15/20 7:29:00 EST, Height, 101.4, kg, 08/07/20 16:24:00EDT, Dry Weight Start Date: 11/23/20 Status: Ordered Flonase 50 mcg/inh nasal spray 1 sprays, Nares, Both, 2 times a day, PRN Congestion, # 16 Gm, 7 Refills, Maintenance, 05/07/20 10:48:00 EDT, [place], [facility] #55088, 1 sprays Nares, Both 2 times a [...] 5 Refills, Maintenance, 01/24/21 11:13:00 EDT, [place], [facility] #[id number], Partial fill upon patient request if the prescription is for a schedule II opioid drug., 1... Start Date: 01/24/21 Status: Ordered losartan 25 mg oral tablet 25 mg, 1, tablet, By Mouth, Daily, # 90 tablet, Refills 7, Tot. Refills 7, Maintenance, 10/21/20 15:16:00 EST, Route to Pharmacy Electronically, [facility] #[id number], 162, cm, 08/24/20 12:57:00 EDT, Height, 101.4, kg, 08/07/20 16:24:00 EDT, Dry... Start Date: 10/21/20 Stop Date: 10/11/22 Status: Ordered omeprazole 20 mg oral enteric coated capsule 1 capsule = 20 mg, By Mouth, Daily, # 30 capsule, 2 Refills, Maintenance, 02/22/21 11:07:00 EDT, ECCapsule, [facility] #[id number], Partial fill upon patient request if the [...] 7:44:00 EDT, 01/20/21 7:44:00 EST, ER Tablet, [facility] #[id number], Partialfill upon patient request if the prescription [...] Active Hypertension(Confirmed) Active Obesity(Confirmed) Active BHN/CCA/Omid Antoine [phone]/Health [facility] active care coordination(Confirmed) Active 1followed by Dr. Dalton Box. and therapist. 2inertal and external on 2017 colonoscopy Social History Social History Type Response Smoking Status Former smoker; Other : quit per pt 03/08/18; entered on: 03/08/18 Sex Male
--- OUTSIDE RECORDS SUMMARY | 2023-10-28 19:17 | XMS_ITS | Continuity of Care Document ---
Author Name Unknown Organization [facility] Address [address] [place] [address]- Care Team Providers Care Gymnasium Teacher Name Role Phone Arya Mercado MD Primary Care Physician [facility]counter [facility] Date(s): 07/26/21 - 08/25/21 [facility] [address] [place] [address]- Allergies, Adverse Reactions, Alerts Substance Reaction Severity [...] tetanus/diphtheria/pertussis, acel(Tdap) 6 04/04/12 Given 1Location History: [facility] 2Admin Note: [facility] [id number] 3Admin Note: Administered at [facility] 4Admin Note: given at [facility] 5Admin Note: VIS 08/20 6Admin Note: [...] 2 Refills, Maintenance, 05/07/20 10:50:00 EDT, Tablet, [facility] #[id number], 162, cm, 05/07/20 8:55:00 EDT, Height Start Date: 05/07/20 Status: Ordered aspirin 81 mg oral delayed release tablet 81 mg, 1, tablet, By Mouth, Daily, # 90 tablet, Refills 7, Tot. Refills 7, Maintenance, 10/21/20 15:17:00 EST, Route to Pharmacy Electronically, [facility] #[id number], 162, cm, 08/24/20 12:57:00 EDT, Height, 101.4, kg, 08/07/20 16:24:00 EDT, Dry... Start Date: 10/21/20 Status: Ordered atorvastatin 40 mg oral tablet 1 tablet = 40 mg, By Mouth, Daily, # 90 tablet, 1 Refills, Maintenance, 08/02/21 9:28:00 EDT, Tablet, [facility] #[id number], 160, cm, 08/02/21 8:58:00 EDT, Height, 101.4, kg, 08/07/20 16:24:00 EDT, Dry Weight Start Date: 08/02/21 Status: Ordered bacitracin topical 500 u/gm ointment 1 application, Topically, 4 times a day, # 30 Gm, 0 Refills, Maintenance, 05/07/20 10:55:00 EDT, Ointment, [facility] #[id number], 1 application Topically 4 times a day,x7 [...] 1 Refills, Maintenance, 03/09/21 14:32:00 EDT, Gel, [facility] #[id number], 160, cm, 01/10/21 14:43:00 EST, Height, 101.4, kg, 08/07/20 16:24:00 EDT, Dry Weight Start Date: 03/09/21 Status: Ordered Flonase 50 mcg/inh nasal spray 1 sprays, Nares, Both, 2 times a day, PRN Congestion, # 16 Gm, 7 Refills, Maintenance, 05/07/20 10:48:00 EDT, [place], [facility] #[id number], 1 sprays Nares, Both 2 times a [...] 5 Refills, Maintenance, 01/24/21 11:13:00 EDT, Film, [facility] #[id number], Partial fill upon patient request if the prescription is for a schedule II opioid drug., 1... Start Date: 01/24/21 Status: Ordered losartan 25 mg oral tablet 25 mg, 1, tablet, By Mouth, Daily, # 90 tablet, Refills 3, Tot. Refills 3, Maintenance, 08/02/21 9:29:00 EDT, Route to Pharmacy Electronically, [facility] #[id number], 160, cm, 08/02/21 8:58:00 EDT, Height, 101.4, kg, 08/07/20 16:24:00 EDT, Dry W... Start Date: 08/02/21 Stop Date: 07/28/22 Status: Ordered Mapap Arthritis Pain 650 mg oral tablet, extended release 1 tablet, By Mouth, Every 8 hours, PRN NEEDED FOR MODERATE PAIN, # 100 each, 0 Refills, Maintenance, 08/02/21 9:29:00 EDT, [facility] #[id number], 160, cm, 08/02/21 8:58:00 EDT, Height, 101.4, kg, 08/07/20 16:24:00 EDT, Dry Weight Start Date: 08/02/21 Status: Ordered meloxicam 15 mg oral tablet 1 tablet = 15 mg, By Mouth, Daily, # 14 tablet, 0 Refills, Maintenance, 03/23/21 10:46:00 EDT, Tablet, [facility] #[id number], Partial fill upon patient request if the prescription is for a schedule II opioid drug., 160, cm, 03/23/21 10:12:00 EDT... Start Date: 03/23/21 Stop Date: 04/06/21 Status: Ordered omeprazole 20 mg oral enteric coated capsule 1 capsule = 20 mg, By Mouth, Daily, # 30 capsule, 2 Refills, Maintenance, 08/02/21 9:20:00 EDT, EC Capsule, [facility] #[id number], Partial fill upon patient request if the [...] 0 Refills, Soft Stop, 08/02/21 9:40:00 EDT, [facility] #[id number], Partial fill upon patient request if the prescription is for a schedule II opioid drug., 0.5 mL Int... Start Date: 08/02/21 Status: Ordered traZODone 100 mg oral tablet via psychiatry, Refills 0, Maintenance, 08/11/20 13:38:00 EDT Start Date: 08/11/20 Status: Ordered Voltaren 1% topical gel 1 application, Topically, 4 times a day, # 100 Gm, 4 Refills, Maintenance, 03/23/21 10:48:00 EDT, [facility] #[id number], Partial fill upon patient request if the [...] mellitus(Confirmed) Active Hypertension(Confirmed) Active Obesity(Confirmed) Active N/[facility]/Omid Antoine [phone]/Health detention active care coordination(Confirmed) Active 1followed by Dr. Dalton Box. and therapist. 2inertal and external on 2017 colonoscopy Social History Social History Type Response Smoking Status Former smoker; Other : quit per pt 03/08/18; entered on: 03/08/18 Sex Male
--- OUTSIDE RECORDS SUMMARY | 2023-10-28 19:17 | XMS_ITS | Continuity of Care Document ---
Author Name Unknown Organization [facility] Address [address] [place] [address]- Care Team Providers Care Aluminum Siding Applicator Name Role Phone Opal NUNEZ, Emily Powlel Primary Care Physician Encounter [facility] Date(s): 12/15/20 - 01/14/[address] [address] Attending Physician: Collette Castillo Admitting Physician: AdmtrCollette Referring Physician: Admtr, Willard8 Allergies, Adverse Reactions, Alerts Substance Reaction Severity [...] tetanus/diphtheria/pertussis, acel(Tdap) 6 04/04/12 Given 1Location History: [facility] 2Admin Note: [facility] [id number] 3Admin Note: Administered at [facility] [place] 4Admin Note: given at [facility] [...] 2 Refills, Maintenance, 05/07/20 10:50:00 EDT, Tablet, [facility] #[id number], 162, cm, 05/07/20 8:55:00 EDT, Height Start Date: 05/07/20 Status: Ordered aspirin 81 mg oral delayed release tablet 81 mg, 1, tablet, By Mouth, Daily, # 90 tablet, Refills 7, Tot. Refills 7, Maintenance, 10/21/20 15:17:00 EST, Route to Pharmacy Electronically, [facility] #[id number], 162, cm, 08/24/20 12:57:00 EDT, Height, 101.4, kg, 08/07/20 16:24:00 EDT, Dry... Start Date: 10/21/20 Status: Ordered atorvastatin 40 mg oral tablet 1 tablet = 40 mg, By Mouth, Daily, # 90 tablet, 3 Refills, Maintenance, 07/26/20 17:31:00 EDT, Tablet, [facility] #[id number], 162, cm, 05/07/20 8:55:00 EDT, Height Start Date: 07/26/20 Status: Ordered bacitracin topical 500 u/gm ointment 1 application, Topically, 4 times a day, # 30 Gm, 0 Refills, Maintenance, 05/07/20 10:55:00 EDT, Ointment, [facility] #[id number], 1 application Topically 4 times a day,x7 [...] 2 Refills, Maintenance, 11/23/20 18:40:00 EST, Gel, [facility] #[id number], 160, cm, 11/15/20 7:29:00 EST, Height, 101.4, kg, 08/07/20 16:24:00EDT, Dry Weight Start Date: 11/23/20 Status: Ordered Flonase 50 mcg/inh nasal spray 1 sprays, Nares, Both, 2 times a day, PRN Congestion, # 16 Gm, 7 Refills, Maintenance, 05/07/20 10:48:00 EDT, [place], [facility] #43653, 1 sprays Nares, Both 2 times a [...] 0 Refills, Maintenance, 11/25/20 16:43:00 EST, Film, [facility] #[id number], Partial fill upon patient request if the prescription is for a schedule II opioid drug., 1... Start Date: 11/25/20 Status: Ordered losartan 25 mg oral tablet 25 mg, 1, tablet, By Mouth, Daily, # 90 tablet, Refills 7, Tot. Refills 7, Maintenance, 10/21/20 15:16:00 EST, Route to Pharmacy Electronically, [facility] #[id number], 162, cm, 08/24/20 12:57:00 EDT, Height, 101.4, kg, 08/07/20 16:24:00 EDT, Dry... Start Date: 10/21/20 Stop Date: 10/11/22 Status: Ordered omeprazole 20 mg oral enteric coated capsule 1 capsule = 20 mg, By Mouth, Daily, # 30 capsule, 5 Refills, Maintenance, 10/21/20 15:18:00 EST, [place], [facility] #[id number], Partial fill upon patient request if the [...] Active Hypertension(Confirmed) Active Obesity(Confirmed) Active BHN/CCA/CLARA-Janelle Antoine [phone]/Health long-term active care coordination(Confirmed) Active 1followed by Dr. Dalton Box. and therapist. 2inertal and external on 2017 colonoscopy Social History Social History Type Response Smoking Status Former smoker; Other : quit per pt 03/08/18; entered on: 03/08/18 Sex Male
--- OUTSIDE RECORDS SUMMARY | 2023-10-28 19:17 | XMS_ITS | Continuity of Care Document ---
Author Name Unknown Organization [facility] Address [address] [place] [address]- Care Team Providers Care Call Center Director Name Role Phone Opal NUNEZ, Emily Powell Primary Care Physician [facility]counter [facility] Date(s): 01/22/20 - 03/12/20 [facility] [address] [place] [address]- [facility] Attending Physician: Arash Rivera MD Admitting Physician: [...] tetanus/diphtheria/pertussis, acel(Tdap) 6 04/04/12 Given 1Location History: [facility] 2Admin Note: [facility] [id number] 3Admin Note: Administered at [facility] in [place] 4Admin Note: given at [facility] [...] Maintenance, 07/25/17 11:21:39, Route to Pharmacy Electronically, [id number], [id number] Start Date: 07/25/17 Status: Ordered atorvastatin 40 [...] 16 Gm, 5 Refills, Maintenance, 02/01/18 14:30:08, [place], 1 sprays Nares, Both 2 times a [...] 0 Refills, Maintenance, 12/22/19 15:47:00 EST, Solution, [facility], 5 mL Topically 4 times a day,PRN:as needed for mouth sore pain, 162, cm, ... Start Date: 12/22/19 Status: Ordered losartan 25 mg oral tablet 25 mg, 1, tablet, By Mouth, Daily, # 90 tablet, Refills 3, Tot. Refills 3, Maintenance, 02/02/20 16:29:00 EDT, Route to Pharmacy Electronically, [email or web address] #[id number], 162, cm, 12/22/19 14:37:00 EST, Height Start [...] Compound Start Date: 07/10/19 Status: Ordered Pen [place], 29 G x 12.7 mm BD Ultra Fine See Instructions, # 100 each, Refills 10, Tot. Refills 10, Maintenance, use as directed for Type 1 Diabetes Mellitus, 05/27/13 13:58:45 Start Date: 05/27/13 Stop Date: 04/22/14 Status: Ordered Pen [place], 31 G x 8 mm BD Ultra [...]
--- OUTSIDE RECORDS SUMMARY | 2023-10-28 19:17 | XMS_ITS | Continuity of Care Document ---
Author Name Unknown Organization [facility] Address [address] [place] [address]- Care Team Providers Care Industrial Maintenance Technician Name Role Phone Arya Mercado MD Primary Care Physician [phone] Encounter [facility] Date(s): 04/17/23 - 05/17/[address] [address]- Attending Physician: Collette Castillo Admitting Physician: AdmtrCollette Referring Physician: Admtr, Ar8 Allergies, Adverse Reactions, Alerts Substance Reaction Severity Status Latex Active metFORMIN lightheadedness GI symptoms Active Immunizations Given and Recorded Vaccine Date Status Refusal Reason tetanus/diphtheria/pertussis, acel(Tdap) 09/11/22 Given tetanus/diphtheria/pertussis, acel(Tdap) 1 04/04/12 Given [id number] 12y+ bivalent booster vax 08/24/22 Recorded influenza [...] inactivated 5 07/31/12 Gi rojelio SARS-CoV-2 mRNA ([id number]) vax 03/08/22 Recorded zoster vaccine, inactivated 01/31/22 Recorded zoster vaccine, inactivated 08/02/21 Recorded SARS-CoV-2 (COVID-19) mRNA BNT-162b2 vac 10/29/21 Recorded SARS-CoV-2 (COVID-19) mRNA BNT-162b2 vac 02/17/21 Recorded SARS-CoV-2 (COVID-19) mRNA BNT-162b2 vac 01/27/21 Recorded pneumococcal 23-valent vaccine 6 06/05/12 Given 1Admin Note: VIS 11/23 2Location History: [facility] 3Admin Note: [facility] [id number] 4Admin Note: Administered at [facility] [place] 5Admin Note: given at [facility] 6Admin Note: VIS 08/20 Medications 3 [...] tablet, 5 Refills, Maintenance, 02/06/23 18:11:00 EDT, [facility] #[id number], Partial fill upon patient request if the prescription is for a schedule II opioid drug., 160, cm,... Start Date: 02/06/23 Status: Ordered Allergy (Loratadine) 10 mg oral tablet 1 tablet = 10 mg, By Mouth, Daily, # 30 tablet, 2 Refills, Maintenance, 05/07/20 10:50:00 EDT, Tablet, [facility] #65168, 162, cm, 05/07/20 8:55:00 EDT, Height Start Date: 05/07/20 Status: Ordered atorvastatin 40 mg oral tablet 1 tablet = 40 mg, By Mouth, Daily, # 90 tablet, 1 Refills, Maintenance, 01/05/23 9:28:00 EST, Tablet, [facility] #51603, 160, cm, 01/04/23 8:32:00 EST, Height Start Date: 01/05/23 Status: Ordered bacitracin topical 500 u/gm ointment 1 application, Topically, 4 times a day, # 30 Gm, 0 Refills, Maintenance, 05/07/20 10:55:00 EDT, Ointment, [facility] #05206, 1 application Topically 4 times a day,x7 [...] 0 Refills, Maintenance, 11/03/22 14:34:00 EST, Capsule, [facility] #53794, Partial fill upon patient request if the prescription is for a schedule II opioid drug., 160,... Start Date: 11/03/22 Stop Date: 11/10/22 Status: Ordered diclofenac 1% topical gel 1 application, Topically, 4 times a day, # 100 Gm, 4 Refills, Maintenance, 11/03/22 14:30:00 EST, Gel, [facility] #17355, 160, cm, 11/03/22 13:45:00 EST, Height Start Date: 11/03/22 Status: Ordered Flonase 50 mcg/inh nasal spray 1 sprays, Nares, Both, 2 times a day, PRN Congestion, # 16 Gm, 7 Refills, Maintenance, 05/07/20 10:48:00 EDT, [place], [facility] #07522, 1 sprays Nares, Both 2 times a day,PRN:Congestion, 162, cm, 05/07/20 8:55:00 EDT, Height Start Date: 05/07/20 Status: Ordered FLUoxetine 20 mg oral capsule via psychiatry, Refills 0, Maintenance, 08/11/20 13:38:00 EDT Start Date: 08/11/20 Status: Ordered lidocaine 5% topical film 1 patch, Topically, Daily, PRN Pain , Mild, remove after 12 hours, # 13 each, 5 Refills, Maintenance, 01/24/21 11:13:00 EDT, [place], [facility] #[id number], Partial fill upon patient request if the prescription is for a schedule II opioid drug., 1... Start Date: 01/24/21 Status: Ordered losartan 25 mg oral tablet 1 tablet, By Mouth, Daily, # 90 tablet, 1 Refills, Maintenance, 02/13/23 8:27:00 EDT, [facility] #[id number], 160, cm, 01/09/23 10:35:00 EST, Height Start [...] Confirmed Active Osteoarthritis Confirmed Active BHN/CCA/CLARA-Janelle Antoine [phone]/Health [facility] active care coordination Confirmed Active Severe [...] S Resident Member Role: PCP Address: Address: [address] [place] [address] [place] [address]- Care Team Related Persons Name: SAMANTHA DAILY Name: EDUARDO DUNBAR Address: home [address] [place] [address]
--- OUTSIDE RECORDS SUMMARY | 2023-10-28 19:17 | XMS_ITS | Continuity of Care Document ---
Author Name Unknown Organization [facility] Address [address] [place] [address]- Care Team Providers Care Compressor House Operator Name Role Phone Rogelio NUNEZ, Arya Tompkins Primary Care Physician Encounter [facility] Date(s): 01/03/23 - 02/02/23 [facility] [address] [place] [id number] Allergies, Adverse Reactions, Alerts Substance Reaction Severity Status Latex Active metFORMIN lightheadedness GI symptoms Active Immunizations Given and Recorded Vaccine Date Status Refusal Reason tetanus/diphtheria/pertussis, acel(Tdap) 09/11/22 Given tetanus/diphtheria/pertussis, acel(Tdap) 1 04/04/12 Given [id number] 12y+ bivalent booster vax 08/24/22 Recorded influenza [...] inactivated 5 07/31/12 Gi rojelio SARS-CoV-2 mRNA ([id number]) vax 03/08/22 Recorded zoster vaccine, inactivated 01/31/22 Recorded zoster vaccine, inactivated 08/02/21 Recorded SARS-CoV-2 (COVID-19) mRNA BNT-162b2 vac 10/29/21 Recorded SARS-CoV-2 (COVID-19) mRNA BNT-162b2 vac 02/17/21 Recorded SARS-CoV-2 (COVID-19) mRNA BNT-162b2 vac 01/27/21 Recorded pneumococcal 23-valent vaccine 6 06/05/12 Given 1Admin Note: VIS 11/23 [facility] [id number] 4Admin Note: Administered at [facility] [place] 5Admin Note: given at [facility] 6Admin Note: VIS 08/20 Medications [...] tablet, 3 Refills, Maintenance, 11/03/22 16:19:00 EST, [facility] #[id number], Partial fill upon patient request if the prescription is for a schedule II opioid drug., 160, cm... Start Date: 11/03/22 Status: Ordered Allergy (Loratadine) 10 mg oral tablet 1 tablet = 10 mg, By Mouth, Daily, # 30 tablet, 2 Refills, Maintenance, 05/07/20 10:50:00 EDT, Tablet, [facility] #[id number], 162, cm, 05/07/20 8:55:00 EDT, Height Start Date: 05/07/20 Status: Ordered aspirin 81 mg oral delayed release tablet 81 mg, 1, tablet, By Mouth, Daily, # 90 tablet, Refills 7, Tot. Refills 7, Maintenance, 10/21/20 15:17:00 EST, Route to Pharmacy Electronically, [facility] #[id number], 162, cm, 08/24/20 12:57:00 EDT, Height, 101.4, kg, 08/07/20 16:24:00 EDT, Dry... Start Date: 10/21/20 Status: Ordered atorvastatin 40 mg oral tablet 1 tablet = 40 mg, By Mouth, Daily, # 90 tablet, 1 Refills, Maintenance, 01/05/23 9:28:00 EST, Tablet, [facility] #27394, 160, cm, 01/04/23 8:32:00 EST, Height Start Date: 01/05/23 Status: Ordered bacitracin topical 500 u/gm ointment 1 application, Topically, 4 times a day, # 30 Gm, 0 Refills, Maintenance, 05/07/20 10:55:00 EDT, Ointment, [facility] #[id number], 1 application Topically 4 times a day,x7 [...] 0 Refills, Maintenance, 11/03/22 14:34:00 EST, Capsule, [facility] #[id number], Partial fill upon patient request if the prescription is for a schedule II opioid drug., 160,... Start Date: 11/03/22 Stop Date: 11/10/22 Status: Ordered diclofenac 1% topical gel 1 application, Topically, 4 times a day, # 100 Gm, 4 Refills, Maintenance, 11/03/22 14:30:00 EST, Gel, [facility] #[id number], 160, cm, 11/03/22 13:45:00 EST, Height Start Date: 11/03/22 Status: Ordered Flonase 50 mcg/inh nasal spray 1 sprays, Nares, Both, 2 times a day, PRN Congestion, # 16 Gm, 7 Refills, Maintenance, 05/07/20 10:48:00 EDT, [place], [email or web address] #[id number], 1 sprays Nares, Both 2 times a day,PRN:Congestion, 162, cm, 05/07/20 8:55:00 EDT, Height Start Date: 05/07/20 Status: Ordered FLUoxetine 20 mg oral capsule via psychiatry, Refills 0, Maintenance, 08/11/20 13:38:00 EDT Start Date: 08/11/20 Status: Ordered lidocaine 5% topical film 1 patch, Topically, Daily, PRN Pain , Mild, remove after 12 hours, # 13 each, 5 Refills, Maintenance, 01/24/21 11:13:00 EDT, Film, [facility] #[id number], Partial fill upon patient request if the prescription is for a schedule II opioid drug., 1... Start Date: 01/24/21 Status: Ordered losartan 25 mg oral tablet 25 mg, 1, tablet, By Mouth, Daily, # 90 tablet, Refills 1, Tot. Refills 1, Maintenance, 10/23/22 11:41:00 EST, Route to Pharmacy Electronically, [facility] #[id number], 160, cm, 08/24/22 16:58:00 EDT, Height Start [...] Confirmed Active Osteoarthritis Confirmed Active BHN/CCA/CLARA-Janelle Antoine [phone]/Health half-way active care coordination Confirmed Active Severe obesity (BMI 35.0-39.9) with comorbidity Confirmed Active 1followed by Dr. Dalton Box. and therapist. 2inertal and external on 2017 colonoscopy Social History Social History Type Response Smoking Status Former smoker; Other : quit per pt 03/08/18; entered on: 03/08/18 Sex Male Patient Care team information Care Team Personnel Name: Arya Mercado MD Position: [facility] Resident Member Role: PCP Address: Address: [address] [place] [address] [place] [address]- Care Team Related Persons Name: SAMANTHA DAILY Name: EDUARDO DUNBAR Address: home [address] [place] [address]
--- OUTSIDE RECORDS SUMMARY | 2023-10-28 19:17 | XMS_ITS | Continuity of Care Document ---
Author Name Unknown Organization [facility] Address [address] [place] [address]- Care Team Providers Care Tow Motor Driver Name Role Phone Opal NUNEZ, Emily Powell Primary Care Physician [facility] Date(s): 01/21/20 - 02/21/20 [facility] [address] [place] [address]- [facility] Attending Physician: Not on Staff, Attending [...] tetanus/diphtheria/pertussis, acel(Tdap) 6 04/04/12 Given 1Location History: [facility] 2Admin Note: [facility] [id number] 3Admin Note: Administered at [facility] [place] 4Admin Note: given at [facility] 5Admin Note: VIS 08/20 6Admin Note: VIS 11/23 Medications Alcohol Wipes See Instructions, # 30 application, Refills 5, Tot. Refills 5, Maintenance, ., 04/12/12 11:43:06 Start Date: 04/12/12 Status: Ordered aspirin 81 mg oral delayed release tablet 81 mg, 1, tablet, By Mouth, Daily, # 90 tablet, Refills 5, Tot. Refills 5, Maintenance, 07/25/17 11:21:39, Route to Pharmacy Electronically, [id number], [id number] Start Date: 07/25/17 Status: Ordered atorvastatin 40 [...] 16 Gm, 5 Refills, Maintenance, 02/01/18 14:30:08, [place], 1 sprays Nares, Both 2 times a [...] 0 Refills, Maintenance, 12/22/19 15:47:00 EST, Solution, [facility], 5 mL Topically 4 times a day,PRN:as needed for mouth sore pain, 162, cm, ... Start Date: 12/22/19 Status: Ordered losartan 25 mg oral tablet 25 mg, 1, tablet, By Mouth, Daily, # 90 tablet, Refills 3, Tot. Refills 3, Maintenance, 02/02/20 16:29:00 EDT, [id number], 162, cm, 12/22/19 14:37:00 EST, Height Start [...] Compound Start Date: 07/10/19 Status: Ordered Pen [place], 29 G x 12.7 mm BD Ultra Fine See Instructions, # 100 each, Refills 10, Tot. Refills 10, Maintenance, use as directed for Type 1 Diabetes Mellitus, 05/27/13 13:58:45 Start Date: 05/27/13 Stop Date: 04/22/14 Status: Ordered Pen [place], 31 G x 8 mm BD Ultra [...]
--- OUTSIDE RECORDS SUMMARY | 2023-10-28 19:17 | XMS_ITS | Continuity of Care Document ---
Author Name Unknown Organization [facility] Address [address] [place] [address]- Care Team Providers Care Clinical Pathologist Name Role Phone Opal NUNEZ, Emily Powell Primary Care Physician Encounter [facility] Date(s): 03/17/21 - 04/16/21 [facility] [address] [place] [id number]- Allergies, Adverse Reactions, Alerts Substance Reaction Severity [...] tetanus/diphtheria/pertussis, acel(Tdap) 6 04/04/12 Given 1Location History: [facility] 2Admin Note: [facility] [id number] 3Admin Note: Administered at [facility] in [place] 4Admin Note: given at [facility] 5Admin Note: VIS 08/20 6Admin Note: [...] 2 Refills, Maintenance, 05/07/20 10:50:00 EDT, Tablet, [facility] #[id number], 162, cm, 05/07/20 8:55:00 EDT, Height Start Date: 05/07/20 Status: Ordered aspirin 81 mg oral delayed release tablet 81 mg, 1, tablet, By Mouth, Daily, # 90 tablet, Refills 7, Tot. Refills 7, Maintenance, 10/21/20 15:17:00 EST, Route to Pharmacy Electronically, [facility] #[id number], 162, cm, 08/24/20 12:57:00 EDT, Height, 101.4, kg, 08/07/20 16:24:00 EDT, Dry... Start Date: 10/21/20 Status: Ordered atorvastatin 40 mg oral tablet 1 tablet = 40 mg, By Mouth, Daily, # 90 tablet, 1 Refills, Maintenance, 03/09/21 14:32:00 EDT, Tablet, [facility] #[id number], 160, cm, 01/10/21 14:43:00 EST, Height, 101.4, kg, 08/07/20 16:24:00 EDT, Dry Weight Start Date: 03/09/21 Status: Ordered bacitracin topical 500 u/gm ointment 1 application, Topically, 4 times a day, # 30 Gm, 0 Refills, Maintenance, 05/07/20 10:55:00 EDT, Ointment, [facility] #[id number], 1 application Topically 4 times a day,x7 [...] 1 Refills, Maintenance, 03/09/21 14:32:00 EDT, Gel, [facility] #[id number], 160, cm, 01/10/21 14:43:00 EST, Height, 101.4, kg, 08/07/20 16:24:00 EDT, Dry Weight Start Date: 03/09/21 Status: Ordered Flonase 50 mcg/inh nasal spray 1 sprays, Nares, Both, 2 times a day, PRN Congestion, # 16 Gm, 7 Refills, Maintenance, 05/07/20 10:48:00 EDT, [place], [facility] #[id number], 1 sprays Nares, Both 2 times a [...] 5 Refills, Maintenance, 01/24/21 11:13:00 EDT, Film, [facility] #[id number], Partial fill upon patient request if the prescription is for a schedule II opioid drug., 1... Start Date: 01/24/21 Status: Ordered losartan 25 mg oral tablet 25 mg, 1, tablet, By Mouth, Daily, # 90 tablet, Refills 7, Tot. Refills 7, Maintenance, 10/21/20 15:16:00 EST, Route to Pharmacy Electronically, [facility] #[id number], 162, cm, 08/24/20 12:57:00 EDT, Height, 101.4, kg, 08/07/20 16:24:00 EDT, Dry... Start Date: 10/21/20 Stop Date: 10/11/22 Status: Ordered meloxicam 15 mg oral tablet 1 tablet = 15 mg, By Mouth, Daily, # 14 tablet, 0 Refills, Maintenance, 03/23/21 10:46:00 EDT, Tablet, [facility] #[id number], Partial fill upon patient request if the prescription is for a schedule II opioid drug., 160, cm, 03/23/21 10:12:00 EDT... Start Date: 03/23/21 Stop Date: 04/06/21 Status: Ordered omeprazole 20 mg oral enteric coated capsule 1 capsule = 20 mg, By Mouth, Daily, # 30 capsule, 2 Refills, Maintenance, 02/22/21 11:07:00 EDT, ECCapsule, [facility] #[id number], Partial fill upon patient request if the [...] 7:44:00 EDT, 01/20/21 7:44:00 EST, ER Tablet, [facility] #[id number], Partialfill upon patient request if the prescription is fo... Start Date: 01/20/21 Stop Date: 05/20/21 Status: Ordered Voltaren 1% topical gel 1 application, Topically, 4 times a day, # 100 Gm, 4 Refills, Maintenance, 03/23/21 10:48:00 EDT, [facility][id number], Partial fill upon patient request if the [...] Active Hypertension(Confirmed) Active Obesity(Confirmed) Active [facility]/CLARA-Janelle Antoine [phone]/Health long term active care coordination(Confirmed) Active 1followed by Dr. Dalton Box. and therapist. 2inertal and external on 2016 colonoscopy Social History Social History Type Response Smoking Status Former smoker; Other : quit per pt 03/08/18; entered on: 03/08/18 Sex Male
== END 2023-10-28 19:39 | disposition left against medical advice (07) ==
PROVIDERS: Emergency Provider Emergency Medicine
DX: S01.419A Laceration without foreign body of unspecified cheek and temporomandibular area, initial encounter (principal); W31.89XA Contact with other specified machinery, initial encounter; Y93.9 Activity, unspecified; Y92.9 Unspecified place or not applicable; Y99.9 Unspecified external cause status
CPT/HCPCS: 99281

== ENCOUNTER 2025-11-03 15:44 | Outpatient (REF) | payer OTHER, SELFPAY ==
--- OUTSIDE RECORDS SUMMARY | 2025-11-03 16:45 | XMS_ITS | Clinical Summary ---
Author Organization [facility] Address [address] [place] [address] Phone Care Team Providers Care Cost Recorder Name Role Phone Cb Orona MD Primary Care Provider + Allergies Active Allergy Reactions Criticality Noted Date Comments Latex 03/30/2025 Medications ammonium lactate (AMLACTIN) 12 % cream Apply topically if needed for dry skin. 560 g 2 5 03/30/20 26 Active Social History Tobacco Use Types Packs/Day Years Used Date Smoking Tobacco: Never Assessed Sex and Gender Information Value Date Recorded Sex Assigned at Not on file Legal Sex Male 6:40 AM EDT Gender Identity Not on file Sexual Orientation Not on file Last Filed Vital Signs Vital Sign Reading Time Taken Comments Blood Pressure - - Pulse - - Temperature - - Respiratory Rate - - Oxygen Saturation - - Inhaled Oxygen Concentration - - Weight 88.5 kg (195 lb) 03/30/2025 11:07 AM EDT Height 162.6 cm (5' 4 ) 03/30/2025 11:07 AM EDT Body Mass Index 33.47 03/30/2025 11:07 AM EDT Plan of Treatment Health Maintenance Due Date Last Done Comments Colorectal Cancer Screening: Colonoscopy 1965 Diabetes: Annual GFR (Glomerular Filtration Rate) 1965 Diabetes: Annual Foot Exam 1975 Diabetes: Annual Retina Eye Exam 1975 Depression Screening 11/12/2024 Cholesterol Screening (Lipid Panel) 01/20/2025 Diabetes: Annual Urine Albumin-Creatinine Ratio (uACR) 01/20/2025 Diabetes: Blood Sugar Control Test (HGBA1C) 01/20/2025 HIV Screening 01/20/2025 Hepatitis C Screening 01/20/2025 Medicare Annual Wellness Visit 01/20/2025 Social Influencers of Health Screening 01/20/2025 Hypertension/CHF/CAD Annual BMP Blood Test 03/30/2025 COVID-19 Vaccine ( season) 2025 03/08/2022, 10/29/2021, 02/17/2021, Additional history exists Influenza Vaccine (#1) 2025 , 08/08/2022, 09/02/2021, Additional history exists DTaP,Tdap,and Td Vaccines (3 - Td or Tdap) 09/11/2032 09/11/2022, 04/04/2012 RSV Immunization Adult Patients (1 - 1-dose 75+ series) 2040 Zoster Vaccines Completed 01/31/2022, 08/02/2021 Pneumococcal Vaccine: 50+ Years Completed 11/16/2023, 06/05/2012 HIB Vaccines Aged Out No longer eligi ble based on patient's age to complete this topic HPV Vaccines Aged Out No longer eligi ble based on patient's age to complete this topic Hepatitis A Vaccines Aged Out No long er eligible based on patient's age to complete this topic Hepatitis B Vaccines Aged Out No long er eligible based on patient's age to complete this topic IPV Vaccines Aged Out No longer eligi ble based on patient's age to complete this topic MMR Vaccines Aged Out No longer eligi ble based on patient's age to complete this topic Meningococcal ACWY Vaccine Aged Out N o longer eligible based on patient's age to complete this topic Meningococcal B Vaccine Aged Out No l onger eligible based on patient's age to complete this topic RSV Immunization Patients Under 20 months Aged Out No longer eligible based on patient's age to complete this topic Varicella Vaccines Aged Out No longer eligible based on patient's age to complete this topic Insurance [employer] MEDICARE Member Subscriber Plan / Payer (Ef fective 2018-Present) Name:CM ORTIZ Relation to Subscriber:Self Name:Cm Ortiz Payer ID:[id number] Group ID:[id number] Type:Not on file Address: [address] [place] [id number] MEDICAID - [place] Care Teams Cost Recorder Relationship Specialty Start Date End Date Cb Orona MD [address] [place] [id number] PCP - General 01/20/25
== END 2025-11-03 15:45 | disposition home or self-care (01) ==
LOC: HO.SH 15:44
DX: H90.3 Sensorineural hearing loss, bilateral (principal)
CPT/HCPCS: 92557; 92567